=== PATIENT | female | born 1970 | race Caucasian/White ===

== ENCOUNTER 2020-05-15 07:48 | Outpatient (REF) | payer OTHER, SELFPAY ==
[2020-05-20 10:26] LABS: HPV mRNA E6/E7 Not Detected (Not Detected)
== END 2020-05-15 07:49 | disposition home or self-care (01) ==
LOC: HO.LAB 07:48
PROVIDERS: PCP Internal Medicine; Referring Provider Internal Medicine; Visit Provider Advanced Practice Midwife
DX: Z01.419 Encounter for gynecological examination (general) (routine) without abnormal findings (principal)
CPT/HCPCS: 87624; 87625; 88142; 99386

== ENCOUNTER 2020-05-31 16:19 | Outpatient (REF) | payer OTHER, SELFPAY ==
--- NOTE | 2020-05-31 16:21 | XR_ITS ---
EXAMINATION: XR KNEE, RIGHT CLINICAL INFORMATION: Right knee pain. COMPARISON: Right knee 04/05/2019 TECHNIQUE: Four views of the right knee. FINDINGS: There is loss of joint space in medial and peripheral compartments with periarticular spurring and anterior superior patellar enthesophyte. This likely a small loose body in the suprapatellar bursa. No abnormal joint effusion seen. No fracture or dislocation. XR/XR knee RT 2V IMPRESSION: Degenerative arthritic changes medial and patellofemoral compartment right knee. Medial compartment abnormality is new since the last exam.
== END 2020-05-31 16:20 | disposition home or self-care (01) ==
LOC: HO.XRAY 16:19
PROVIDERS: PCP Internal Medicine; Visit Provider Internal Medicine
DX: M25.561 Pain in right knee (principal)
CPT/HCPCS: 73560

== ENCOUNTER 2020-06-27 10:11 | Outpatient (REF) | payer OTHER, SELFPAY ==
--- NOTE | 2020-06-27 10:13 | XR_ITS ---
EXAMINATION: XR KNEE, RIGHT CLINICAL INFORMATION: Pain in right knee COMPARISON: 05/31/2020 TECHNIQUE: [place] view of the right knee. FINDINGS: On this single sunrise view of the patellofemoral compartmental joint space is maintained. There are marginal osteophytes present. No acute fractures seen. XR/XR knee RT 2V IMPRESSION: Appropriate alignment at the patellofemoral compartment. Marginal osteophyte formation noted.
== END 2020-06-27 10:12 | disposition home or self-care (01) ==
LOC: HO.HOSX 10:11
PROVIDERS: PCP Internal Medicine; Referring Provider Internal Medicine; Visit Provider Physician Assistant
DX: M25.561 Pain in right knee (principal)
CPT/HCPCS: 20610; 73560; J1040

== ENCOUNTER → 2020-07-09 08:55 | Outpatient (BNVA) | payer OTHER, SELFPAY | PROVIDERS: PCP Internal Medicine; Referring Provider Internal Medicine; Visit Provider Student in an Organized Health Care Education/Training Program | DX: Z76.89 Persons encountering health services in other specified circumstances (principal) ==

== ENCOUNTER 2020-10-26 09:15 | Outpatient (REF) | payer OTHER, SELFPAY ==
--- NOTE | ~2020-10-26 | XR_ITS ---
EXAMINATION: XR HIP, RIGHT CLINICAL INFORMATION: Right hip pain. COMPARISON: None TECHNIQUE: Two views of the right hip. FINDINGS: There is mild coxa profunda. The joint space is maintained. No acute bony abnormality is demonstrated. XR/XR hip RT min 2V IMPRESSION: Mild coxa profunda. No acute abnormality.
--- NOTE | ~2020-10-26 | MM_ITS ---
EXAMINATION: MM SCREENING DIGITAL BREAST TOMOSYNTHESIS, BILATERAL CLINICAL INFORMATION: Screening. Asymptomatic. The lifetime risk of breast cancer based on the Tyrer-Cuzick Model is 11%. COMPARISON: Mammography: 10/21/2019, 10/08/2018, 09/20/2017 TECHNIQUE: Digital breast tomosynthesis is performed in both the craniocaudal and mediolateral oblique views along with computer-aided detection (CAD). Synthesized 2D images are generated from the tomosynthesis. Additional exaggerated right CC view is provided. FINDINGS: There are scattered areas of fibroglandular density (ACR BI-RADS breast composition Category b). There are no significant masses, abnormal calcifications, or other abnormalities. Parenchymal pattern is similar to prior studies. No developing density or interval mass or architectural abnormality. MM/MM tomosynthesis screening BI IMPRESSION: No mammographic evidence of malignancy. ASSESSMENT: BI-RADS 1: Negative RECOMMENDATION: Routine annual mammography screening. This patient's information was entered into a reminder system with a target due date for their next mammogram.
== END 2020-10-26 09:16 | disposition home or self-care (01) ==
LOC: HO.MAMMO 09:15
PROVIDERS: PCP Internal Medicine; Visit Provider Internal Medicine
DX: Z12.31 Encounter for screening mammogram for malignant neoplasm of breast (principal); M25.551 Pain in right hip
CPT/HCPCS: 73502; 77063; 77067

== ENCOUNTER 2020-11-18 08:09 | Outpatient (REF) | payer OTHER, SELFPAY ==
--- NOTE | ~2020-11-18 | XR_ITS ---
EXAMINATION: XR PELVIS CLINICAL INFORMATION: Pain COMPARISON: Previous x-ray of the right hip October 2020 TECHNIQUE: AP view of the pelvis. FINDINGS: Bone alignment is normal. No fracture or dislocation is seen. The joint spaces are normal. Soft tissues are normal. XR/XR pelvis 1-2V IMPRESSION: Normal pelvis.
== END 2020-11-18 08:10 | disposition home or self-care (01) ==
LOC: HO.HOSX 08:09
PROVIDERS: Visit Provider Orthopaedic Surgery
DX: M70.61 Trochanteric bursitis, right hip (principal); M25.551 Pain in right hip
CPT/HCPCS: 20610; 72170; J1100

== ENCOUNTER 2020-12-05 12:41 | Emergency (ER) | payer OTHER, SELFPAY ==
--- NOTE | 2020-12-05 | ECG_ITS ---
Test Reason : CHEST PAIN Blood Pressure : / mmHG Vent. Rate : 104 BPM Atrial Rate : 104 BPM P-R Int : 130 ms QRS Dur : 088 ms QT Int : 344 ms P-R-T Axes : 016 -14 005 degrees QTc Int : 452 ms Sinus tachycardia Minimal voltage criteria for LVH, may be normal variant Borderline ECG When compared with ECG of 06-OCT-2017 18:16, No significant change was found Referred By: Generic ED Physician Electronically Signed By:YOVANI PETER MD
[2020-12-05 14:01] VITALS: BP 146/87; PULSE 80; RESP 18; TEMP 37.1; O2SAT 100; BMI 33.8
--- NOTE | 2020-12-05 14:54 | ED_ITS ---
HPI - Chest Pain General Chief Complaint: Chest Pain Stated Complaint: CHEST PAIN Time Seen by Provider: 12/05/20 14:54 Source: patient Mode of arrival: ambulatory Limitations: no limitations History of Present Illness HPI narrative: chest pain with pressure with dizziness and diaphoresis. Symptoms have started on Wednesday, 2 days ago and have been constant since then. Patient has had anxiety and felt palpitation. Patient also has GERD. Patient is currently under stress, daughter recently had a stroke, and her dog 7 days ago. Patient denies suicidal ideation, safe at home no abuse. MD complaint: chest heaviness Onset (ago): day(s) Timing of current episode: constant Onset: during rest Pain location: substernal Severity: moderate Quality: tightness Exacerbating factors: nothing Associated symptoms: other (stress) Risk Factors Coronary artery disease risk factors: smoking history and hypertension Related Data Home Medications Medication Instructions Recorded Confirmed ascorbic acid 125 mg-collagen, cap PO 05/15/20 10/07/20 hydrolyzed 740 mg capsule docusate sodium 100 mg capsule 100 mg PO 05/15/20 10/07/20 Previous Rx's Medication Instructions Recorded omeprazole 20 mg capsule,delayed 40 mg PO DAILY #180 cap 06/17/20 release leg brace #1 ea 06/28/20 diclofenac sodium 1 % topical gel 1 g TOPICAL BID PRN #100 g 07/23/20 lorazepam 1 mg tablet 1 mg PO DAILY PRN 90 Days #90 tab 08/12/20 cholecalciferol (vitamin D3) 25 50 mcg PO DAILY #180 tab 09/05/20 mcg (1,000 unit) tablet hydrochlorothiazide 25 mg tablet 25 mg PO QAM #90 tab 09/12/20 tramadol 50 mg tablet 50 mg PO Q8H PRN 30 Days #90 tab 09/12/20 buspirone 5 mg tablet 5 mg PO BID #60 tab 10/07/20 meloxicam 15 mg tablet 15 mg PO DAILY #30 tab 10/07/20 ibuprofen 800 mg tablet 800 mg PO TID PRN 30 Days #90 tab 11/18/20 sertraline 100 mg tablet 100 mg PO DAILY #90 tab 11/18/20 tizanidine 4 mg tablet 4 mg PO TID PRN #90 tab 12/02/20 Allergies Allergy/AdvReac Type Severity Reaction Status Date / Time No Known Allergies Allergy Verified 11/18/20 09:18 [No Known Allergies*] Review of Systems Constitutional: Constitutional: Reports no additional constitutional comp laints Eyes: Eyes: Reports no additional eye complaints ENT: Denies dizziness Cardiovascular: Cardiovascular: Reports no additional cardiovascular complaints Respiratory: Respiratory: Reports as per HPI Gastrointestinal: Gastrointestinal: Reports no additional gastrointestinal complaints Genitourinary: Genitourinary: Reports no additional female genitourinary complaints Musculoskeletal: Musculoskeletal: Reports no additional musculoskeletal complaints Integumentary/Breasts: Skin/Breast: Denies rash Neurologic: Reports system reviewed and no additional complaints, except as documented, Denies dizziness and Denies Sensory deficit (Neuro) Psychiatric: Psychiatric: Denies anxiety PMFSH Past Medical History Medical History Anemia Anxiety and depression Avascular necrosis of right humeral head Bilateral carpal tunnel syndrome GERD (gastroesophageal reflux disease) Hx of diverticulitis of colon Hx of tendinitis Hypercholesterolemia Hypertension Lumbar degenerative disc disease Primary osteoarthritis of hands, bilateral Rotator cuff disorder Vitamin D deficiency Surgical History History of foot surgery Hx of abdominoplasty Hx of cholecystectomy Hx of colonoscopy Hx of rotator cuff surgery Hx of tubal ligation Varicose veins of right lower extremity Family History Family History Father Hx of diabetes mellitus History of high cholesterol Mother Family hx of hypertension History of asthma Hx of heart disorder Brother Automobile accident Brother Suicide Family/Other No problems noted. Maternal Grandmother History of asthma Paternal Grandfather No problems noted. 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 Physical Exam Vital Signs: Vital Signs: Last Vital Signs Temp 98.0 F 12/05/20 16:39 Pulse 72 12/05/20 16:39 Resp 14 12/05/20 16:39 BP 140/81 H 12/05/20 16:39 Pulse Ox 100 12/05/20 16:39 Body Mass Index 33.8 Const: General: healthy appearing Nutritional Appearance: obese Orie ntation/consciousness: oriented to person and patient oriented x3 Limitat ions: no limitations HENMT: Head: Yes normal to inspection Ears: external ears normal General nose exam: Normal external nose present Mouth: Normal oral and palatal mucosa present and oropharynx normal Throat: Yes posterior oropharynx normal Eyes: General: appearance normal, both eyes and all related structures Neck: Other: supple Neck: Yes normal visual inspection Chest: Chest palpation & inspection: normal inspection of the chest Resp: Auscultation: clear to auscultation bilaterally Cardio: Jugular venous distension: no JVD Rate: regular rate Rhythm: regular rhythm Heart sounds: S1 normal heart sound present and S2 normal heart sound present GI: Inspection: Yes normal to inspection Palpation (GI): Soft to palpation, nontender and No hepatosplenomegaly present Auscultation: normal bowel sounds : General: Yes no CVA tenderness Back/Spine/Pelvis: Back: no CVA tenderness Skin: General skin exam: no rashes or lesions noted Neuro: General: oriented to person and patient oriented x3 Cranial nerves: Yes CN's II-XII intact bilaterally Motor exam (neuro): 5/5 motor strength present throughout Sensory Exam: No Sensory deficit (Neuro) Extrem: General: Yes normal to inspection Psych: Appearance: grossly normal Course Course Course Narrative: Impression is anxiety will dc home if chemistries are normal, signed out to Dr. Barragan [facility] - Chest Pain Lab Data Result diagrams: 12/05/20 16:31 12/05/20 16:31 Labs: Lab Results 12/05/20 Range/Units 16:31 WBC 11.4 H (4.8-10.8) X10*3/uL RBC 4.33 (4.20-5.50) X10*6/uL Hgb 11.6 L (12.0-16.0) g/dl Hct 36.6 L (37-47) % MCV 84.5 (80-98) fL MCH 26.8 L (27.0-33.0) pg MCHC 31.7 (31.0-35.0) g/dl RDW 15.2 (11.0-16.0) % Plt Count 340 (160-400) X10*3/uL MPV 9.3 L (9.4-12.3) fL Immature Gran % (Auto) 0.3 (0.0-0.4) % Neut % (Auto) 64.5 (45-73) % Lymph % (Auto) 26.8 (20-40) % [place] % (Auto) 6.9 (2-11) % Eos % (Auto) 1.2 (0-4) % Baso % (Auto) 0.3 (0-2) % Lymph # (Auto) 3.0 (1.2-4.9) X10*3/uL [place] # (Auto) 0.8 (0.1-1.2) X10*3/uL Eos # (Auto) 0.1 (0.0-0.4) X10*3/uL Baso # (Auto) 0.0 (0.0-0.2) X10*3/uL Abs Immat Gran (auto) 0.03 (0.00-0.03) X10*3/uL Absolute Neuts (auto) 7.3 (2.0-8.3) X10*3/uL Absolute Nucleated RBC 0.000 (0.0-0.012) X10*3/uL Nucleated RBC % (auto) 0.0 (0.0-0.2) /100WBC ECG Data ECG #1: Attestation: I personally reviewed and interpreted this ECG as follows: Interpretation: normal sinus rate 104, no st or twave changes Discharge Plan Discharge Clinical Impression: Anxiety and depression, Chest pain Patient Disposition: Home, Self-Care Prescriptions: No Action omeprazole 20 mg capsule,delayed release(DR/EC) 40 mg PO DAILY Qty: 180 RF: 4 diclofenac sodium 1 % gel 1 g topical BID PRN (Reason: pain) Qty: 100 RF: 3 lorazepam 1 mg tablet 1 mg PO DAILY PRN (Reason: agitation) 90 Days Qty: 90 RF: 0 cholecalciferol (vitamin D3) 25 mcg (1,000 unit) tablet 50 mcg PO DAILY Qty: 180 RF: 3 hydrochlorothiazide 25 mg tablet 25 mg PO QAM Qty: 90 RF: 2 tramadol 50 mg tablet 50 mg PO Q8H PRN (Reason: pain) 30 Days Qty: 90 RF: 1 sertraline 100 mg tablet 100 mg PO DAILY Qty: 90 RF: 2 tizanidine 4 mg tablet 4 mg PO TID PRN (Reason: for muscle spasm) Qty: 90 RF: 1 meloxicam 15 mg tablet 15 mg PO DAILY Qty: 30 RF: 1 Hold Instructions: Doctor's Order buspirone 5 mg tablet 5 mg PO BID Qty: 60 RF: 2 docusate sodium 100 mg capsule 100 mg PO RF: 0 Collagen Plus Vitamin C 125-740 mg capsule PO RF: 0 (DME) Knee Support Brace Misc See Rx Instructions .MEDSUPPLY Qty: 1 RF: 0 ibuprofen 800 mg tablet 800 mg PO TID PRN (Reason: pain) 30 Days Qty: 90 RF: 2 Referrals: Po,Mian Howard MD [Primary Care Provider] - 1 week
[2020-12-05] MEDS: LORazepam 1 MG TABLET PO (15:51)
[2020-12-05 16:37] LABS: MANUAL DIFF FLAG NO
[2020-12-05 16:39] VITALS: BP 140/81; PULSE 72; RESP 14; TEMP 36.7; O2SAT 100
[2020-12-05 16:39] LABS: Basophils Percent Auto 0.3 % (0-2); Eosinophils Absolute Auto 0.1 X10*3/uL (0.0-0.4); Eosinophils Percent Auto 1.2 % (0-4); Hematocrit 36.6 % (37-47); Hemoglobin 11.6 g/dl (12.0-16.0); Imm Gran Abs Auto 0.03 X10*3/uL (0.00-0.03); Imm Gran Pct Auto 0.3 % (0.0-0.4); Lymphocytes Percent Auto 26.8 % (20-40); Mean Corpuscular HGB Conc 31.7 g/dl (31.0-35.0); Mean Corpuscular Hemoglobin 26.8 pg (27.0-33.0); Mean Corpuscular Volume 84.5 fL (80-98); Mean Platelet Volume 9.3 fL (9.4-12.3); Monocytes Absolute Auto 0.8 X10*3/uL (0.1-1.2); Monocytes Percent Auto 6.9 % (2-11); Neutrophils Absolute Auto 7.3 X10*3/uL (2.0-8.3); Neutrophils Percent Auto 64.5 % (45-73); Platelet Count 340 X10*3/uL (160-400); Red Blood Count 4.33 X10*6/uL (4.20-5.50); Red Cell Distribution Width 15.2 % (11.0-16.0); White Blood Count 11.4 X10*3/uL (4.8-10.8)
[2020-12-05 17:05] LABS: Anion Gap 13 (12-20); Blood Urea Nitrogen 10 mg/dL (9-16); Calcium 9.6 mg/dL (8.4-10.2); Carbon Dioxide 27 mmol/L (22-29); Chloride 102 mmol/L (96-108); Creatinine Clr Calc Pharmacy 97.2; Estimated Glomerular Filt Rate > 60; Glucose Random 84 mg/dL (60-115); Potassium 4.1 mmol/L (3.3-5.1); Sodium 138 mmol/L (135-145)
[2020-12-05 17:12] LABS: Troponin-I High Sensitivity < 3.5 ng/L (<3.5-17.0)
[2020-12-05 17:52] VITALS: BP 133/76; PULSE 82; RESP 18; O2SAT 99
== END 2020-12-05 18:03 | disposition home or self-care (01) ==
PROVIDERS: Emergency Provider Emergency Medicine; PCP Internal Medicine
DX: R07.9 Chest pain, unspecified (principal); Z79.899 Other long term (current) drug therapy; Z87.891 Personal history of nicotine dependence
CPT/HCPCS: 36415; 80048; 84484; 85025; 93005; 99283

== ENCOUNTER 2021-01-31 12:04 | Outpatient (REF) | payer OTHER, SELFPAY ==
--- NOTE | ~2021-01-31 | XR_ITS ---
EXAMINATION: XR KNEE, LEFT CLINICAL INFORMATION: Pain in left knee COMPARISON: Radiograph of the knee 10/29/2008 TECHNIQUE: AP and lateral radiographs of the knee of the left knee. FINDINGS: The osseous structures of the knee are intact. There is enthesopathy at the insertion of the quadriceps tendon. Knee is in alignment. Within the anterior aspect of the intercondylar space there is a 0.9 x 0.6 x 0.9 cm smoothly calcified structure may represent an intra-articular ossicle. On lateral radiograph there is question small suprapatellar effusion. XR/XR knee LT 2V IMPRESSION: Smoothly calcified ossicle in the intercondylar space. Question trace joint effusion. No acute fracture.
== END 2021-01-31 12:05 | disposition home or self-care (01) ==
LOC: HO.XRAY 12:04
PROVIDERS: PCP Internal Medicine; Visit Provider Internal Medicine
DX: M25.562 Pain in left knee (principal)
CPT/HCPCS: 73560

== ENCOUNTER → 2021-03-14 13:35 | Outpatient (BNVA) | payer OTHER, SELFPAY | PROVIDERS: PCP Internal Medicine; Visit Provider Physician Assistant | DX: M17.11 Unilateral primary osteoarthritis, right knee (principal); M70.61 Trochanteric bursitis, right hip | CPT/HCPCS: 20610; J1040 ==

== ENCOUNTER → 2021-03-26 13:28 | Outpatient (BNVA) | payer OTHER, SELFPAY | PROVIDERS: PCP Internal Medicine; Referring Provider Internal Medicine; Visit Provider Surgery ==

== ENCOUNTER 2021-04-17 | Outpatient (REF) | payer OTHER, SELFPAY ==
[2021-04-17 13:54] VITALS: BP 133/86; PULSE 92; RESP 16; TEMP 36.6; O2SAT 99; BMI 35.2
--- NOTE | 2021-04-17 14:17 | P.OP_ITS ---
Operative Note Operative Note Date of Service: 04/17/21 Narrative: Preop diagnosis: Epidermal cyst, right shoulder Postop diagnosis: the same Procedure: Excision of epidermal cyst, right shoulder under local anesthesia Surgeon: Brady Baeza MD Legal Writing Professor: LIBERTAD Marie-student The patient is a 50 year female with an epidermal cyst on the right shoulder. She wanted this removed. She understood the technique of excision under local anesthesia and was aware of the risks, benefits, and alternatives She was brought to the minor procedure room and placed in a reclining position. The area of the cyst was prepped and draped. Lidocaine 1% was used for local anesthesia. A surgical time-out had been done I then made an incision on the skin overlying the cyst using blade 15 and this was carried down through the full-thickness of the skin and subcutaneous fat until the cyst capsule was visualized. I sharply dissected the cyst capsule off of the rest of the subcutaneous layer using scissors and proceeded this circumferentially to remove the entire cyst. This was sent as a specimen I irrigated the area of excision. I closed the incision with full-thickness nylon 3-0 interrupted sutures. Dressings were applied and the procedure was completed The patient tolerated procedure well. There were no complications noted. Blood loss was less than 1 cc. The patient was then given wound care instructions.
== END 2021-04-17 00:01 | disposition home or self-care (01) ==
LOC: HO.MS
PROVIDERS: PCP Internal Medicine; Visit Provider Surgery
PROC: (CPT 11402; principal; 2021-04-17 14:00)
DX: L72.0 Epidermal cyst (principal)
CPT/HCPCS: 11402; 88304

== ENCOUNTER 2021-04-26 09:21 | Outpatient (REF) | payer OTHER, SELFPAY ==
[2021-04-26 09:58] LABS: MANUAL DIFF FLAG NO
[2021-04-26 10:07] LABS: Basophils Percent Auto 0.4 % (0-2); Eosinophils Absolute Auto 0.2 X10*3/uL (0.0-0.4); Eosinophils Percent Auto 2.2 % (0-4); Hematocrit 36.4 % (37-47); Hemoglobin 11.5 g/dl (12.0-16.0); Imm Gran Abs Auto 0.03 X10*3/uL (0.00-0.03); Imm Gran Pct Auto 0.4 % (0.0-0.4); Immature Retic Fraction 16.2 % (3.0-15.9); Lymphocytes Absolute Auto 2.2 X10*3/uL (1.2-4.9); Lymphocytes Percent Auto 27.1 % (20-40); Mean Corpuscular HGB Conc 31.6 g/dl (31.0-35.0); Mean Corpuscular Volume 85.4 fL (80-98); Mean Platelet Volume 9.9 fL (9.4-12.3); Monocytes Absolute Auto 0.6 X10*3/uL (0.1-1.2); Monocytes Percent Auto 7.5 % (2-11); Neutrophils Absolute Auto 5.2 X10*3/uL (2.0-8.3); Neutrophils Percent Auto 62.4 % (45-73); Platelet Count 355 X10*3/uL (160-400); Red Blood Count 4.26 X10*6/uL (4.20-5.50); Red Cell Distribution Width 14.9 % (11.0-16.0); Retic HGB Equivalent 32.8 pg (30.0-35.0); Reticulocyte Percent 2.1 % (0.5-1.8); Reticulocytes Absolute 0.089 X10*6/uL (0.026-0.095); White Blood Count 8.3 X10*3/uL (4.8-10.8)
[2021-04-26 10:35] LABS: Alanine Aminotransferase 29 U/L (0-31); Albumin Level 3.7 g/dL (3.5-5.0); Alkaline Phosphatase 90 U/L (39-117); Anion Gap 11 (12-20); Aspartate Amino Transferase 15 U/L (5-31); Bilirubin Total 0.2 mg/dL (0.0-1.0); Blood Urea Nitrogen 13 mg/dL (9-16); Calcium 9.2 mg/dL (8.4-10.2); Carbon Dioxide 30 mmol/L (22-29); Chloride 104 mmol/L (96-108); Cholesterol 223 mg/dL; Estimated Glomerular Filt Rate > 60; Glucose Random 100 mg/dL (60-115); HDL Cholesterol 34 mg/dL; Iron 33 mcg/dL (30-160); LDL Cholesterol Calculated 126 mg/dl; Percent Iron Saturation 8 % (15-50); Potassium 3.8 mmol/L (3.3-5.1); Sodium 141 mmol/L (135-145); Total Iron Binding Capacity 412 mcg/dL (228-428); Total Protein 6.8 g/dL (6.5-8.0); Triglycerides 317 mg/dL; Unsaturated Iron Binding 379 ug/dL
[2021-04-26 10:41] LABS: Free T4 (Free Thyroxine) 0.81 ng/dL (0.71-1.85)
[2021-04-26 11:12] LABS: Ferritin 34 ng/mL (10-250)
[2021-04-28 04:17] LABS: Folate 13.9 ng/mL (> or = 4.0); Vitamin B12 726 pg/mL (200-900)
== END 2021-04-26 09:22 | disposition home or self-care (01) ==
LOC: HO.LAB 09:21
PROVIDERS: PCP Internal Medicine; Visit Provider Internal Medicine
DX: K21.9 Gastro-esophageal reflux disease without esophagitis (principal); E78.00 Pure hypercholesterolemia, unspecified; I10 Essential (primary) hypertension
CPT/HCPCS: 36415; 80053; 80061; 82607; 82728; 82746; 83540; 84439; 84443; 85025; 85045

== ENCOUNTER → 2021-04-30 14:24 | Outpatient (BNVA) | payer OTHER, SELFPAY | PROVIDERS: PCP Internal Medicine; Referring Provider Internal Medicine; Visit Provider Surgery ==

== ENCOUNTER 2021-05-01 17:00 | Outpatient (REF) | payer OTHER, SELFPAY ==
--- NOTE | ~2021-05-01 | MR_ITS ---
EXAMINATION: MR KNEE WITHOUT CONTRAST, RIGHT CLINICAL INFORMATION: Primary osteoarthritis COMPARISON: X-ray the right knee May 2020 TECHNIQUE: MRI of the knee without contrast was performed using routine sequences on a high-field scanner. FINDINGS: MENISCI: Medial Meniscus: There is irregularity of the free edge and tibial articular surface of the posterior horn. There is a partially detached and displaced meniscal fragment. This is located just anterior to the posterior root of the meniscus extending into the intercondylar notch. This fragment measures 9 x 2 x 10 mm and presumably arises from the aforementioned meniscal abnormality. The body and anterior horn are intact. Lateral Meniscus: Intact LIGAMENTS: Cruciate: Intact Collateral: Intact EXTENSOR MECHANISM: Intact ARTICULAR CARTILAGE/BONE: Patellofemoral Compartment: In the patella there is nonuniform at least partial-thickness cartilage loss particularly along the proximal aspect of the patella. Minimal cartilage heterogeneity of the medial trochlea. Findings indicative of mild arthrosis. Medial Compartment: There are marginal osteophytes. There are small subchondral cystic changes with surrounding edema along the posterior medial margin of the tibia. Minimal cartilage heterogeneity. Overall mild arthrosis. Lateral Compartment: There are small marginal osteophytes. Cartilage intact. JOINT FLUID AND BURSAE: There is a mild joint effusion and synovitis. Localized synovitis versus small chondral loose body in the posterior recess of the medial compartment measuring 4 mm. MR/MR knee RT wo con IMPRESSION: Tear of the posterior horn of medial meniscus with a displaced meniscal fragment extending into the intercondylar notch. Mild arthrosis of the patellofemoral compartment and medial compartment. Minimal arthrosis of the lateral compartment. Mild joint effusion and synovitis. Localized synovitis versus small chondral loose body in the posterior recess of medial compartment. Favor synovitis.
== END 2021-05-01 17:01 | disposition home or self-care (01) ==
LOC: HO.MRI 17:00
PROVIDERS: PCP Internal Medicine; Visit Provider Physician Assistant
DX: M17.11 Unilateral primary osteoarthritis, right knee (principal)
CPT/HCPCS: 73721

== ENCOUNTER → 2021-05-12 10:05 | Outpatient (REF) | payer OTHER, SELFPAY ==
--- NOTE | 2021-05-12 10:17 | ECG_ITS ---
Test Reason : htn Blood Pressure : / mmHG Vent. Rate : 073 BPM Atrial Rate : 073 BPM P-R Int : 126 ms QRS Dur : 092 ms QT Int : 396 ms P-R-T Axes : 019 -01 005 degrees QTc Int : 436 ms Normal sinus rhythm Normal ECG When compared with ECG of 05-DEC-2020 12:51, Heart rate has decreased Referred By: Mian Haynes Electronically Signed By:JOHN CABALLERO
== END ==
LOC: HO.CARD 10:05
PROVIDERS: PCP Internal Medicine; Visit Provider Internal Medicine
DX: I10 Essential (primary) hypertension (principal)
CPT/HCPCS: 93005

== ENCOUNTER 2021-05-27 07:48 | Day surgery (SDC) | payer OTHER, SELFPAY ==
[2021-05-27] VITALS (12 sets, daily range): BP systolic 111–144; BP diastolic 57–80; PULSE 77–100; RESP 14–18; TEMP 36.1–36.7; O2SAT 93–100; BMI 34.5
--- NOTE | 2021-05-27 09:55 | MHC.SHP ---
Pre-Procedural Eval Section A Date of Service: 05/27/21 The patient is an INPATIENT: No Changes since office visit: Yes Patient answered all questions; No Cold of Flu in the past 2 weeks, No New Medical Problems and No Changes in Medication The History & Physical has been completed within 30 days and I have reviewed it.: Yes Section B Chief Complaint: tear of medial meniscus Allergies: Allergies Allergy/AdvReac Type Severity Reaction Status Date / Time No Known Allergies Allergy Verified 05/27/21 08:35 [No Known Allergies*] Plan I have reviewed the history and physical and performed a pertinent physical examination on my patient. No changes have occurred unless specified.
[2021-05-27] MEDS: Lactated Ringers 1,000 ML 50 ML IVCONT (10:39)
--- NOTE | 2021-05-27 10:54 | HO.ANESPROP2 ---
HPI - Anesthesia Eval Consult details Narrative: 50 F for knee arthroscopy [facility] Active Problems Active Problems: All Active Problems (Updated 05/12/21 @ 13:10 by Simón Nuñez PA-C) Tear of medial meniscus of right knee (Acute) Facial dermatitis (Acute) Breast pain, right (Acute) Generalized anxiety disorder (Acute) Annual physical exam (Acute) Epidermal inclusion cyst (Acute) Trochanteric bursitis, right hip (Acute) Knee pain, left (Acute) Sebaceous cyst (Acute) Obesity (BMI 30-39.9) (Acute) Hypercholesterolemia (Acute) GERD (gastroesophageal reflux disease) (Acute) Hypertension (Acute) Bilateral carpal tunnel syndrome (Acute) Primary osteoarthritis of hands, bilateral (Acute) Osteoarthritis of right knee (Acute) Avascular necrosis of right humeral head (Acute) Past Medical History Medical History Anemia Avascular necrosis of right humeral head Bilateral carpal tunnel syndrome Epidermal inclusion cyst GERD (gastroesophageal reflux disease) Hip pain, right Hx of diverticulitis of colon Hx of tendinitis Hypercholesterolemia Hypertension Knee pain, left Lumbar degenerative disc disease Obesity (BMI 30-39.9) Primary osteoarthritis of hands, bilateral Rotator cuff disorder Vitamin D deficiency Family History Family History Father Hx of diabetes mellitus History of high cholesterol Mother Family hx of hypertension History of asthma Hx of heart disorder Brother Automobile accident Brother Suicide Family/Other No problems noted. Maternal Grandmother History of asthma Paternal Grandfather No problems noted. Daughter In good health Daughter In good health Daughter In good health Family history of problems with anesthesia: No Surgical History Surgical History History of foot surgery History of removal of cyst Hx of abdominoplasty Hx of cholecystectomy Hx of colonoscopy Hx of rotator cuff surgery Hx of tubal ligation Varicose veins of right lower extremity History of Problems with Anesthesia: No Social History Social History Housing: House Alcohol intake: current Alcohol intake frequency: holidays/special occasions only Patient Tobacco Use Status: Former Tobacco user Tobacco use type: Cigarette Years Smoked: stopped 1-2 cigarettes at a time > 2009 Second Hand Smoke Exposure: No Use of substances other than those prescribed or required for medical reasons: Yes Substance Use Frequency: Occasionally Are you DNR?: No Advance Directives: No Advance Directives Information Provided: Yes service: No Current occupational status: employed 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 Allergies Allergy/AdvReac Type Severity Reaction Status Date / Time No Known Allergies Allergy Verified 05/27/21 08:35 [No Known Allergies*] Active Medications: Current Medications Lactated Ringer's (Lr) 1,000 mls @ 50 mls/hr IVCONT .Q20H TAZ Last Admin: 05/27/21 10:39 Dose: 50 mls/hr Documented by: Home Medications Medication Instructions Recorded Confirmed Last Taken Type ascorbic acid 125 mg-collagen, cap PO 05/15/20 04/11/21 Unknown History hydrolyzed 740 mg capsule (Collagen Plus Vitamin C) Exam Exam Date and Time: May 27, 2021 1054 Height,Weight and Vital Signs: Height 5 ft 3.5 in Weight 198 lb Last Vital Signs Temp 98.0 F 05/27/21 08:36 Pulse 77 05/27/21 08:36 Resp 16 05/27/21 08:36 BP 144/80 H 05/27/21 08:36 Pulse Ox 99 05/27/21 08:36 Airway Mallampati Class: III TM Dist: >3cm Neck ROM: Full Loose/Missing/Broken Teeth: No Assessment and Plan Assessment Anesthesia Assessment: Anesthesia Plan Discussed and Chart Reviewed Final Anesthetic Review Family History of Problems with Anesthesia: No History of Problems with Anesthesia: No NPO: Yes ASA Class: III Final Preanesthetic Review: No Changes in Pt Med Stat, Meds/Allgs Chart Reviewed, Consent Obtained/Reviewed and Anes Risks/Benef Reviewed Patient Risk: Intermediate Procedure Risk: Low Anesthetic Plan Anesthetic Plan: GA Disposition: Standard PACU
--- NOTE | 2021-05-27 11:33 | PM.OP ---
Brief Operative Note Date of Service: 05/27/21 Pre-op diagnosis: right knee medial meniscus tear Post-op diagnosis: same Procedure: right knee with partial medial meniscectomy Surgeon: Edmund Mahmood MD Anesthesia: GETA and local Was an Synthetic Resin Operator used for this Procedure?: No Estimated blood loss (mL): 5 Tourniquet time (min): 20 IV fluids (mL): 800 Pathology: none sent Condition: stable Disposition: PACU
--- NOTE | 2021-05-27 11:35 | P.OP_ITS ---
Operative Note Operative Note Date of Service: 05/27/21 Narrative: Pre-op diagnosis: right knee medial meniscus tear Post-op diagnosis: same Procedure: right knee with partial medial meniscectomy Surgeon: Edmund Mahmood MD Anesthesia: GETA and local Was an Finding Fastener used for this Procedure?: No Estimated blood loss (mL): 5 Tourniquet time (min): 20 IV fluids (mL): 800 Pathology: none sent Condition: stable Disposition: PACU Procedure in detail: Patient was brought to the operating room placed supine on the arthroscopic table and prepped and draped in standard sterile fashion. A time-out was called to identify proper site proper procedure proper surgeon and IV antibiotics per weight were administered. I began by exsanguinating the limb and insufflating tourniquet to 300 mm Hg. Then made a standard anterolateral stab incision. knee was insufflated with water and 30 degree arthroscope was placed. There was grade 3-4 changes of the proximal pole of the patella but overall suprapatellar pouch was clean and the gutters were clean. I descended into the medial compartment where I made my medial portal under direct visualization. There was obvious of complex tear of the body and posterior horn of the medial meniscus. Root was intact and there was grade 1 changes with some scattered grade 2 changes throughout the medial compartment. I used a combination of biter shaver and cautery to remove unstable portions of the meniscus. Approximately 40% meniscal volume was removed. Once I was satisfied with this the ACL was examined and found to be intact and the lateral compartment also was without the need for intervention. I then removed all instrumentation and closed the portals with skin glue. 25 mL of 2% Marcaine with epinephrine was injected into the joint and the surrounding soft tissues. Patient was then placed in sterile dressing extubated brought recovery room stable condition. There were no known complications. Anterior compartment: Clean Patellofemoral cartilage: G 4 proximal 50% of central patellar facet Medial compartment: Complex meniscus tear of body and posterior horn Notch: ACL intact Lateral compartment: Cartilage and meniscus intact
[2021-05-27] MEDS: Ketorolac Tromethamine 15 MG/ML VIAL IVPUSH (12:00)
[2021-05-27] MEDS: oxyCODONE HCl Immed Release 5 MG TABLET PO (12:00)
[2021-05-27] MEDS: HYDROmorphone HCl 0.5 MG/0.5 ML SYRINGE 0.25 MG IVPUSH ×2 (12:00→12:26)
[2021-05-27] MEDS: Acetaminophen 325 MG TABLET 975 MG PO (13:01)
== END 2021-05-27 13:35 | disposition home or self-care (01) ==
PROVIDERS: PCP Internal Medicine; Visit Provider Orthopaedic Surgery
PROC: (CPT 29870; principal; 2021-05-27 09:40)
DX: S83.231A Complex tear of medial meniscus, current injury, right knee, initial encounter (principal); X58.XXXA Exposure to other specified factors, initial encounter; Y93.9 Activity, unspecified; Y92.9 Unspecified place or not applicable; Y99.8 Other external cause status; M17.11 Unilateral primary osteoarthritis, right knee; M25.461 Effusion, right knee; M65.861 Other synovitis and tenosynovitis, right lower leg; I10 Essential (primary) hypertension; Z79.1 Long term (current) use of non-steroidal anti-inflammatories (NSAID); Z79.899 Other long term (current) drug therapy; Z87.891 Personal history of nicotine dependence
CPT/HCPCS: 29881; J0171; J0690; J1170; J1885; J2250; J3010

== ENCOUNTER → 2021-06-09 10:30 | Outpatient (BNVA) | payer OTHER, SELFPAY | PROVIDERS: Visit Provider Physician Assistant ==

== ENCOUNTER 2021-07-09 08:00 | Outpatient (RCR) | payer OTHER, SELFPAY ==
--- NOTE | 2021-06-18 12:25 | MHC.PT.EP ---
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 SHE ARRIVES FOR PT S/P MEDIAL MENISCUS REPAIR. IMPAIRMENTS INCLUDE DECREASED ROM, DECREASED KNEE AND HIP STRENGTH, ALTERED GAIT PATTERN, DECREASED BALANCE, INCREASED EDEMA AND PAIN. FUNCTIONAL LIMITATIONS INCLUDE DECREASED ABILITY TO PERFORM SQUATTING, WALKING, STATIC STANDING AND STAIR CLIMBING. SHE REPORTS DECREASED ABILITY TO PERFORM HOMEMAKING AND SELF CARE TASKS, DECREASED ABILITY TO PERFORM COMMUNITY AND FITNESS ACTIVITIES WELL WORK TASKS. SHE REPORTS DISRUPTED SLEEP. A PT IS A GOOD CANDIDATE FOR SKILLED PT DUE TO AGE, POTENTIAL REMEDIATION OF IMPAIRMENTS, TYPICAL DISEASE/CONDITION PROGRESSION AND PROGNOSIS, COMORBIDITIES, AND MOTIVATION. PT WOULD BENEFIT FROM TAILORED PROGRAM OF THERAPEUTIC ACTIVITIES, FUNCTIONAL TRAINING, GAIT TRAINING, POSTURAL EDUCATION, NEUROMUSCULAR RE-EDUCATION, AND MODALITIES NEEDED. Frequency and Duration: The patient will be seen 2 X WEEK FOR 4 WEEKS Short Term Goals: INITIATE HEP ANDPROMOTE SELF MANAGEMENT OF SYMPTOMS IN 2 VISITS Skilled Nursing Goals: IN 4 WEEKS: TO DEMONSTRATE FULL KNEE ROM, EQUAL TRELL TO DEMONSTRATE FULL LE STRENGTH, EQUAL TRELL TO ASCEND AND DESCEND STAIRS WITHOUT PAIN GREATER THAN 2/10 TO AMBULATE AD MINESH ON LEVEL AND UNEVEN SURFACES FOR FITNESS WITHOUT PAIN GREATER THAN 2/10 TO PERFORM FULL FUNCTIONAL SQUAT WITHOUT SUBSTITUTION Treatment Plan: Modalities to reduce pain, spasms and effusion. Manual therapy to restore motion and function. Therapeutic exercise to improve strength and flexibility. Neuromuscular re-education for posture and balance. Therapeutic activities to return to functional activities of daily living. Electronically signed by: JULIET LEMON PT, DPT Please sign and return to therapist. Thank you for your referral.
== END 2021-08-13 14:30 | disposition home or self-care (01) ==
LOC: HO.PT 08:00
PROVIDERS: Visit Provider Physician Assistant
DX: M17.11 Unilateral primary osteoarthritis, right knee (principal); M70.60 Trochanteric bursitis, unspecified hip
CPT/HCPCS: 97110; 97112; 97161; 97530

== ENCOUNTER → 2021-07-09 11:17 | Outpatient (BNVA) | payer OTHER, SELFPAY | PROVIDERS: PCP Internal Medicine; Visit Provider Physician Assistant ==

== ENCOUNTER 2021-08-06 12:30 | Outpatient (REF) | payer OTHER, SELFPAY ==
[2021-08-06 15:45] LABS: Influenza A PCR NEGATIVE (Negative); Influenza B PCR NEGATIVE (Negative); Resp Syncy Virus RNA Qual PCR NEGATIVE (Negative); SARS COV2 PCR INHOUSE POSITIVE (Negative)
== END 2021-08-06 12:31 | disposition home or self-care (01) ==
LOC: HO.LAB 12:30
PROVIDERS: Visit Provider Family Medicine
DX: Z20.822 Contact with and (suspected) exposure to COVID-19 (principal); B34.9 Viral infection, unspecified
CPT/HCPCS: 0241U

== ENCOUNTER → 2021-08-21 11:23 | Outpatient (BNVA) | payer OTHER, SELFPAY | PROVIDERS: PCP Internal Medicine; Visit Provider Physician Assistant ==

== ENCOUNTER → 2021-09-12 08:10 | Outpatient (BNVA) | payer OTHER, SELFPAY | PROVIDERS: PCP Internal Medicine; Visit Provider Nurse Practitioner Family ==

== ENCOUNTER 2021-09-25 09:51 | Outpatient (REF) | payer OTHER, SELFPAY ==
--- NOTE | 2021-09-25 09:53 | EMG_ITS ---
Right tibial and peroneal motor studies were performed. Right superficial peroneal and sural sensory studies were performed. Tibial H-reflex was obtained and needle examination was performed. IMPRESSION: Right mid to lower lumbar radiculopathy. MD PEARL Bowling/SHAYLA / [id number]
== END 2021-09-25 09:52 | disposition home or self-care (01) ==
LOC: HO.NEURO 09:51
PROVIDERS: PCP Internal Medicine; Visit Provider Nurse Practitioner Family
DX: M17.11 Unilateral primary osteoarthritis, right knee (principal); R29.898 Other symptoms and signs involving the musculoskeletal system
CPT/HCPCS: 95886; 95909

== ENCOUNTER → 2021-09-30 08:01 | Outpatient (BNVA) | payer OTHER, SELFPAY | PROVIDERS: PCP Internal Medicine; Visit Provider Nurse Practitioner Family ==

== ENCOUNTER 2021-10-03 11:19 | Outpatient (REF) | payer OTHER, SELFPAY ==
--- NOTE | ~2021-10-03 | MR_ITS ---
EXAMINATION: MR LUMBAR SPINE WITHOUT CONTRAST CLINICAL INFORMATION: Right lower extremity numbness and weakness. COMPARISON: Lumbar spine radiographs 03/22/2020. TECHNIQUE: MRI of the lumbar spine was obtained using routine sequences without contrast. FINDINGS: Alignment is normal. Vertebral heights are preserved. No acute bone marrow signal changes. There is slight loss of intervertebral disc height and T2 signal intensity at L5-S1 related to disc degeneration. There is also disc desiccation at L4-L5. The tip of the conus medullaris is located at T12-L1. No mass effect on the conus. Visualized distal cord signal intensity is normal. At T12-L1, L1-L2, L2-L3, and L3-L4 the annular contours are normal. No canal or neuroforaminal compromise at these levels. At L4-L5 there is a slightly bulging disc. Bilateral facet degenerative change. No canal stenosis. Subarticular zone narrowing causes abutment of both traversing L5 nerve roots. No foraminal nerve root compression. At L5-S1 there is a bulging disc. Bilateral facet degenerative change. No canal stenosis. Subarticular zone narrowing causes abutment of both traversing S1 nerve roots. There is also mild mass effect on both L5 foraminal nerve roots, slightly greater on the left. Limited visualization of the retroperitoneal anatomy reveals no abnormal finding. Psoas and paraspinal muscle groups are symmetric. MR/MR lumbar spine wo con IMPRESSION: There is disc degeneration at L4-L5 and L5-S1. Symmetric subarticular zone narrowing at L5-S1 causes abutment of both traversing S1 nerve roots. There is also mild mass effect on both L5 foraminal nerve roots related to degenerative changes at L5-S1, greater on the left. No canal stenosis.
== END 2021-10-03 11:20 | disposition home or self-care (01) ==
LOC: HO.MRI 11:19
PROVIDERS: Visit Provider Nurse Practitioner Family
DX: R29.898 Other symptoms and signs involving the musculoskeletal system (principal); M51.36 Other intervertebral disc degeneration, lumbar region; M47.27 Other spondylosis with radiculopathy, lumbosacral region
CPT/HCPCS: 72148

== ENCOUNTER 2021-10-09 14:02 | Outpatient (REF) | payer OTHER, SELFPAY ==
--- NOTE | ~2021-10-09 | XR_ITS ---
EXAMINATION: XR SACRUM AND COCCYX CLINICAL INFORMATION: Fall with pain COMPARISON: March 22, 2020 TECHNIQUE: 3 views of the sacrum and coccyx. FINDINGS: No acute sacral or coccygeal fracture is appreciated. There is degenerative disc disease at the L5-S1 level with some marginal spurring and facet arthropathy bilaterally. No significant abnormality of the sacroiliac joints is seen. XR/XR sacrum coccyx min 2V IMPRESSION: No definite sacral or coccygeal fracture identified. Degenerative disc disease and facet arthropathy L5-S1.
== END 2021-10-09 14:03 | disposition home or self-care (01) ==
LOC: HO.HMGCX 14:02
PROVIDERS: PCP Internal Medicine; Visit Provider Physician Assistant
DX: M54.50 Low back pain, unspecified (principal); W19.XXXA Unspecified fall, initial encounter
CPT/HCPCS: 72220

== ENCOUNTER → 2021-10-10 09:40 | Outpatient (BNVA) | payer OTHER, SELFPAY | PROVIDERS: PCP Internal Medicine; Visit Provider Nurse Practitioner Family ==

== ENCOUNTER 2021-10-15 06:09 | Outpatient (REF) | payer OTHER, SELFPAY ==
--- NOTE | ~2021-10-15 | FL_ITS ---
EXAMINATION: XR FLUOROSCOPY WITH IMAGES CLINICAL INFORMATION: M17.11 - Unilateral primary osteoarthritis, right knee COMPARISON: MR right knee 05/01/2021 TECHNIQUE: Fluoroscopy performed by Dr. Stanton Mejia. Fluoroscopy time: 0.2 minutes DAP: 0.443 Gycm2 Images: 3 FINDINGS: There are spinal needles adjacent to the distal femoral shaft, medial and lateral sides, mid depth. There is a spinal needle adjacent to the proximal tibia on medial side mid depth. FL/FL guidance in treatment room IMPRESSION: Fluoroscopy for pain management procedures.
== END 2021-10-15 06:10 | disposition home or self-care (01) ==
LOC: HO.RADIR 06:09
PROVIDERS: Visit Provider Internal Medicine
DX: M17.11 Unilateral primary osteoarthritis, right knee (principal)
CPT/HCPCS: 64454; 64450

== ENCOUNTER → 2021-10-17 11:56 | Outpatient (BNVA) | payer OTHER, SELFPAY | PROVIDERS: PCP Internal Medicine; Visit Provider Nurse Practitioner Family ==

== ENCOUNTER 2021-10-29 12:44 | Outpatient (REF) | payer OTHER, SELFPAY ==
--- NOTE | ~2021-10-29 | US_ITS ---
EXAMINATION: ULTRASOUND EXTREMITY NONVASCULAR CLINICAL INFORMATION: Fall 4 weeks ago. Right buttock tender lump. COMPARISON: None TECHNIQUE: Grayscale and color imaging of the soft tissues of the right buttock using a linear and introducer FINDINGS: There is an 8.4 x 10.4 x 3.8 cm minimally complex fluid collection 2 cm and the to the skin. This demonstrates no increased vascularity. Given history of fall, this probably represents a resolving hematoma. Abscess cannot be excluded. US/US extremity nonvascular IMPRESSION: 8.4 x 10.4 x 3.8 cm minimally complex fluid collection in the right buttock probably representing a resolving hematoma. Abscess cannot be excluded. This would be amenable to ultrasound-guided aspiration if clinically indicated.
== END 2021-10-29 12:45 | disposition home or self-care (01) ==
LOC: HO.HMGCX 12:44
PROVIDERS: PCP Internal Medicine; Visit Provider Nurse Practitioner Family
DX: R22.9 Localized swelling, mass and lump, unspecified (principal)
CPT/HCPCS: 76882

== ENCOUNTER 2021-11-08 08:55 | Outpatient (REF) | payer OTHER, SELFPAY ==
--- NOTE | ~2021-11-08 | MM_ITS ---
EXAMINATION: MM SCREENING DIGITAL BREAST TOMOSYNTHESIS, BILATERAL CLINICAL INFORMATION: Screening. Asymptomatic. The lifetime risk of breast cancer based on the Tyrer-Cuzick Model is 7%. COMPARISON: Mammography: 10/26/2020, 10/21/2019, 10/26/2018 TECHNIQUE: Digital breast tomosynthesis is performed in both the craniocaudal and mediolateral oblique views along with computer-aided detection (CAD). Synthesized 2D images are generated from the tomosynthesis. FINDINGS: There are scattered areas of fibroglandular density (ACR BI-RADS breast composition Category b). There are no significant masses, abnormal calcifications, or other abnormalities. The axilla are unremarkable. There is chronic mild bilateral nipple retraction similar to prior studies. No skin thickening. No significant changes. MM/MM tomosynthesis screening BI IMPRESSION: No mammographic evidence of malignancy. ASSESSMENT: BI-RADS 2: Benign RECOMMENDATION: Routine annual mammography screening. This patient's information was entered into a reminder system with a target due date for their next mammogram.
== END 2021-11-08 08:56 | disposition home or self-care (01) ==
LOC: HO.MAMMO 08:55
PROVIDERS: PCP Internal Medicine; Visit Provider Internal Medicine
DX: Z12.31 Encounter for screening mammogram for malignant neoplasm of breast (principal)
CPT/HCPCS: 77063; 77067

== ENCOUNTER 2021-11-11 05:57 | Outpatient (REF) | payer OTHER, SELFPAY ==
--- NOTE | ~2021-11-11 | FL_ITS ---
EXAMINATION: XR FLUOROSCOPY WITH IMAGES CLINICAL INFORMATION: Spondylosis with radiculopathy. COMPARISON: None. TECHNIQUE: Fluoroscopy performed by Ofelia Tracey NP. Fluoroscopy time: 0.5 minutes DAP: 2.8 Gy-cm2 Images: 2 FINDINGS: Images demonstrate needle placement and contrast injection adjacent to the bilateral lateral L5 vertebral body. FL/FL guidance in treatment room IMPRESSION: Fluoroscopy guidance for pain management procedure.
== END 2021-11-11 05:58 | disposition home or self-care (01) ==
LOC: HO.RADIR 05:57
PROVIDERS: Visit Provider Anesthesiology
DX: M47.27 Other spondylosis with radiculopathy, lumbosacral region (principal); M54.50 Low back pain, unspecified; M51.36 Other intervertebral disc degeneration, lumbar region; M17.11 Unilateral primary osteoarthritis, right knee; M53.3 Sacrococcygeal disorders, not elsewhere classified
CPT/HCPCS: 64483; 64484; J3300; Q9967

== ENCOUNTER → 2021-11-20 15:15 | Outpatient (BNVA) | payer OTHER, SELFPAY | PROVIDERS: PCP Internal Medicine; Visit Provider Physician Assistant | DX: M17.11 Unilateral primary osteoarthritis, right knee (principal) | CPT/HCPCS: 20610; J1040 ==

== ENCOUNTER → 2021-12-04 10:14 | Outpatient (BNVA) | payer OTHER, SELFPAY | PROVIDERS: PCP Internal Medicine; Visit Provider Surgery | DX: Z13.89 Encounter for screening for other disorder (principal) ==

== ENCOUNTER → 2021-12-16 08:14 | Outpatient (BNVA) | payer OTHER, SELFPAY | PROVIDERS: PCP Internal Medicine; Visit Provider Nurse Practitioner Family | DX: M54.50 Low back pain, unspecified (principal) ==

== ENCOUNTER 2022-05-30 10:05 | Outpatient (REF) | payer OTHER, SELFPAY ==
[2022-05-30 10:16] LABS: MANUAL DIFF FLAG NO
[2022-05-30 11:24] LABS: Basophils Percent Auto 0.5 % (0-2); Eosinophils Absolute Auto 0.1 X10*3/uL (0.0-0.4); Eosinophils Percent Auto 1.7 % (0-4); Hematocrit 40.4 % (37.0-47.0); Hemoglobin 12.7 g/dl (12.0-16.0); Imm Gran Abs Auto 0.02 X10*3/uL (0.00-0.03); Imm Gran Pct Auto 0.3 % (0.0-0.4); Lymphocytes Absolute Auto 2.5 X10*3/uL (1.2-4.9); Mean Corpuscular HGB Conc 31.4 g/dl (31.0-35.0); Mean Corpuscular Hemoglobin 27.4 pg (27.0-33.0); Mean Corpuscular Volume 87.3 fL (80.0-98.0); Mean Platelet Volume 11.9 fL (9.4-12.3); Monocytes Absolute Auto 0.6 X10*3/uL (0.1-1.2); Monocytes Percent Auto 7.7 % (2-11); Neutrophils Absolute Auto 4.5 x10*3/uL (2.0-8.3); Neutrophils Percent Auto 57.8 % (45-73); Platelet Count 283 X10*3/uL (160-400); Red Blood Count 4.63 X10*6/uL (4.20-5.50); Red Cell Distribution Width 14.5 % (11.0-16.0); White Blood Count 7.8 X10*3/uL (4.8-10.8)
[2022-05-30 12:05] LABS: Estimated Average Glucose 117 mg/dL; Hemoglobin A1c % 5.7 %
[2022-05-30 12:39] LABS: Alanine Aminotransferase 18 U/L (0-31); Albumin Level 3.8 g/dL (3.5-5.0); Alkaline Phosphatase 81 U/L (39-117); Anion Gap 17 (12-20); Aspartate Amino Transferase 20 U/L (5-31); Bilirubin Total 0.4 mg/dL (0.0-1.0); Blood Urea Nitrogen 13 mg/dL (9-16); Carbon Dioxide 25 mmol/L (22-29); Chloride 104 mmol/L (96-108); Cholesterol 229 mg/dL; Estimated Glomerular Filt Rate > 60; Glucose Random 88 mg/dL (60-115); HDL Cholesterol 41 mg/dL; LDL Cholesterol Calculated 153 mg/dl; Potassium 4.2 mmol/L (3.3-5.1); Sodium 142 mmol/L (135-145); Total Protein 7.1 g/dL (6.5-8.0); Triglycerides 178 mg/dL
[2022-05-30 12:56] LABS: Free T4 (Free Thyroxine) 0.89 ng/dL (0.71-1.85); Thyroid Stimulating Hormone 2.03 uIU/mL (0.32-4.0); Vitamin D 25-OH Total 23.6 ng/mL (>30)
[2022-05-30 13:02] LABS: Folate 12.8 ng/mL (> or = 4.0); Vitamin B12 579 pg/mL (200-900)
== END 2022-05-30 10:06 | disposition home or self-care (01) ==
LOC: HO.LAB 10:05
PROVIDERS: PCP Internal Medicine; Visit Provider Internal Medicine
DX: E66.9 Obesity, unspecified (principal); E78.00 Pure hypercholesterolemia, unspecified
CPT/HCPCS: 36415; 80053; 80061; 82306; 82607; 82746; 83036; 84439; 84443; 85025

== ENCOUNTER 2022-07-28 11:31 | Outpatient (REF) | payer OTHER, SELFPAY ==
[2022-07-28 12:34] LABS: Influenza A PCR POSITIVE (Negative); Influenza B PCR NEGATIVE (Negative); Resp Syncy Virus RNA Qual PCR NEGATIVE (Negative); SARS COV2 PCR INHOUSE NEGATIVE (Negative)
== END 2022-07-28 11:32 | disposition home or self-care (01) ==
LOC: HO.LNP 11:31
PROVIDERS: Visit Provider Nurse Practitioner Family
DX: Z20.822 Contact with and (suspected) exposure to COVID-19 (principal); J06.9 Acute upper respiratory infection, unspecified
CPT/HCPCS: 0241U

== ENCOUNTER 2022-09-04 12:39 | Emergency (ER) | payer OTHER, SELFPAY ==
--- NOTE | ~2022-09-04 | CT_ITS ---
EXAMINATION: CT HEAD WITHOUT CONTRAST CLINICAL INFORMATION: Intermittent dizziness. COMPARISON: CT scan of the head 04/27/2017. TECHNIQUE: Contiguous axial imaging was performed from the skull base to vertex without intravenous administration of contrast. This CT examination was performed using dose optimization techniques as appropriate, variously including the following: *Automated exposure control *Adjustment of mA and/or kV according to patient size (this includes techniques or standardized protocols for targeted exams where dose is matched to indication/reason for exam; i.e. extremities or head) *Use of iterative reconstruction technique DLP: 700 mGy-cm FINDINGS: There is a low-density mass or collection located within the left cerebellopontine angle cistern causing subtle rightward displacement of the brainstem. Lateral and third ventricles are normal. No hydrocephalus. There is no acute hemorrhage. Bain-white matter differentiation is grossly preserved and there is no evidence of acute territorial infarct. The calvarium and skull base are intact. Mastoid air cells and middle ear cavities are well aerated. Mild to moderate paranasal sinus disease primarily affecting the maxillary sinuses. CT/CT head/brain wo IV con IMPRESSION: There is a low-density mass or collection located within the left cerebellopontine angle cistern. Possible diagnostic considerations include an arachnoid cyst or epidermoid. A dedicated brain MRI without and with contrast recommended for better anatomic characterization of this finding.
--- NOTE | ~2022-09-04 | XR_ITS ---
EXAMINATION: XR CHEST CLINICAL INFORMATION: Chest pain COMPARISON: 10/06/2017 TECHNIQUE: 2 views of the chest were obtained. FINDINGS: The lungs are well expanded. There is no focal consolidation, edema, or effusion. No pneumothorax. The cardiomediastinal silhouette is within normal limits. No acute osseous abnormality. Mild degenerative changes in the spine. XR/XR chest 2V IMPRESSION: Clear lungs.
[2022-09-04 12:42] VITALS: BP 177/97; PULSE 97; RESP 18; TEMP 36.8; O2SAT 99; BMI 34.5
--- NOTE | 2022-09-04 12:44 | ED.GENADULT ---
HPI - General Adult General Chief complaint: Chest Pain <LIBERTAD Oneil - Last Filed: 09/04/22 12:46> Stated complaint: High Blood pressure, chest pain, dizziness <LIBERTAD Oneil - Last Filed: 09/04/22 12:46> Time Seen by Provider: 09/04/22 14:24 <LIBERTAD Oneil - Last Filed: 09/04/22 12:46> Source: patient and family <LIBERTAD Mcbride Last Filed: 09/04/22 16:09> Mode of arrival: ambulatory <LIBERTAD Mcbride Last Filed: 09/04/22 16:09> Limitations: no limitations <LIBERTAD Mcbride Last Filed: 09/04/22 16:09> History of Present Illness HPI narrative: 52-year-old female with a past medical history of TMJ dysfunction, anemia, hyperlipidemia, hypertension, GERD and obesity who is presenting to the ER with multiple complaints which include intermittent dizziness, feeling like her eyes are shaking, nausea, chest pain, palpitation and shortness of breath. She reports that this has been intermittent over the past few weeks to months. She reports approximately 2 days ago she felt very dizzy. Today she does not feel dizzy although today when she was at work she felt some nausea, palpitations and chest pain. Therefore she came here for further evaluation treatment. Reports that she did take her blood pressure medication. She is on Ativan 1 mg and she usually takes 2 mg for her anxiety. She reports that she is not going through any significant stressors in her life at this time. She denies any headaches, recent falls or trauma to her head, recent tick bites, recent fevers, changes in vision, blurry vision, jaw pain, paresthesias, vomiting, radiation of the chest pain, dyspnea on exertion, orthopnea, any drug usage, abdominal pain, flank pain, back pain, dysuria, hematuria, abnormal vaginal discharge, black or bloody stools, lower extremity edema or calf tenderness, recent travel or sick contacts, cough, nasal congestion/rhinorrhea or any other symptoms complaints or concerns at this time. <LIBERTAD Mcbride Last Filed: 09/04/22 16:09> MD complaint: Dizziness, nausea, chest pain, palpitations, shortness of breath <LIBERTAD Mcbride Last Filed: 09/04/22 16:09> Onset (ago): month(s) <LIBERTDA Mcbride - Last Filed: 09/04/22 16:09> Related Data Home medications: Previous Rx's Medication Instructions Recorded leg brace (Knee Support Brace) #1 ea 06/28/20 cholecalciferol (vitamin D3) 25 50 mcg PO DAILY #180 tabs 08/18/21 mcg (1,000 unit) tablet Donut pillow #1 ea 10/10/21 tizanidine 4 mg tablet 4 mg PO Q8H PRN muscle spasticity 12/16/21 30 days #90 tabs docusate sodium 100 mg capsule 200 mg PO DAILY PRN constipation 01/12/22 #180 caps lorazepam 1 mg tablet 1 mg PO DAILY PRN agitation 90 01/30/22 days #90 tabs hydrochlorothiazide 25 mg tablet 25 mg PO QAM #90 tabs 02/18/22 omeprazole 20 mg capsule,delayed 40 mg PO DAILY #180 caps 04/16/22 release semaglutide 0.25 mg or 0.5 mg (2 0.25 mg (0.2 mL) subcut QWEEK #1.5 04/16/22 mg/1.5 mL) subcutaneous pen mL injector tramadol 50 mg tablet 50 mg PO Q8H PRN pain 30 days #90 04/23/22 tabs bisacodyl 5 mg tablet,delayed 10 mg PO ONCE colonoscopy prep 1 05/12/22 release (Dulcolax (bisacodyl)) day #2 tabs methylcellulose (laxative) 500 mg 500 mg PO BID #60 tabs 05/12/22 tablet (Citrucel) polyethylene glycol 3350 17 238 g PO ONCE 1 day #238 grams 05/12/22 gram/dose oral powder (Miralax) sertraline 100 mg tablet 100 mg PO DAILY #90 tabs 05/15/22 lidocaine 5 % topical patch 1 patch topical DAILY PRN for pain 06/11/22 #30 patches gabapentin 300 mg capsule 300 mg PO TID for pain 30 days #90 07/20/22 caps dextromethorphan HBr 20 mg/15 mL 20 mg (15 mL) PO TID PRN cough 5 07/28/22 oral solution days #118 mL oseltamivir 75 mg capsule (Tamiflu) 75 mg PO BID 5 days #10 caps 07/28/22 prednisone 20 mg tablet 40 mg PO DAILY 5 days #10 tabs 07/28/22 buspirone 7.5 mg tablet 7.5 mg PO BID 90 days #180 tabs 08/11/22 meloxicam 15 mg tablet 15 mg PO DAILY #14 tabs 08/11/22 <LIBERTAD Oneil - Last Filed: 09/04/22 12:46> Allergies/adverse reactions: Allergies Allergy/AdvReac Type Severity Reaction Status Date / Time No Known Allergies Allergy Verified 08/11/22 17:22 [No Known Allergies*] <LIBERTAD Oneil - Last Filed: 09/04/22 12:46> Review of Systems Review of Systems: Constitutional : No Weight loss, No Fever, No Chills, No Night Sweats, No Fatigue, No Malaise ENT/Mouth : No Hearing loss, No Ear Pain, No Nasal Congestion, No Sinus Pain, No Hoarseness, No sore throat, No Rhinorrhea, No Swallowing Difficulty Eyes: + feeling like her eyes were shaking, No Eye Pain, No Swelling, No Redness, No Foreign Body, No Discharge, No Vision Changes Cardiovascular : + Chest Pain, + SOB, No Dyspnea on Exertion, No Orthopnea, No Edema, + Palpitations Respiratory : No Cough, No Sputum, No Wheezing, No Smoke Exposure, No Dyspnea Gastrointestinal : No Nausea, No Vomiting, No Diarrhea, No Constipation, No abdominal Pain, No Hematochezia, No Melena Genitourinary : no irregular bleeding, No Dysuria, No Urinary Frequency, No Hematuria, No Urinary Incontinence, No Urgency, No Flank Pain, No Urinary Flow Changes, No Hesitancy Musculoskeletal : No joint pain, No Myalgias, No Joint Swelling Skin : No Skin Lesions, No rash Neuro : No Weakness, No Numbness, No Paresthesias, No Loss of Consciousness, + Dizziness intermittent for months, No Headache Psych : + Anxiety/Panic, No Depression, No SI/HI/AH/VH, No Social Issues, Heme/Lymph: No Bruising, No Bleeding,No Lymphadenopathy Endocrine : No Polyuria, No Polydipsia, No Temperature Intolerance <LIBERTAD Mcbride Last Filed: 09/04/22 16:09> Yes all other systems are reviewed and are negative <LIBERTAD Mcbride - Last Filed: 09/04/22 16:09> [facility] Past Medical History Attestation statement: The following information was validated with the patient. <LIBERTAD Mcbride - Last Filed: 09/04/22 16:09> Source: old records reviewed, obtained from family and nursing notes reviewed <LIBERTAD Mcbride - Last Filed: 09/04/22 16:09> Medical History: Medical History Anemia Avascular necrosis of right humeral head Bilateral carpal tunnel syndrome Epidermal inclusion cyst GERD (gastroesophageal reflux disease) Hip pain, right Hx of diverticulitis of colon Hx of tendinitis Hypercholesterolemia Hypertension Knee pain, left Lumbar degenerative disc disease Obesity (BMI 30-39.9) Primary osteoarthritis of hands, bilateral Requires management of nerve block infusion Rotator cuff disorder Vitamin D deficiency <LIBERTAD Oneil - Last Filed: 09/04/22 12:46> Surgical History: Surgical History History of foot surgery History of removal of cyst Hx of abdominoplasty Hx of cholecystectomy Hx of colonoscopy Hx of rotator cuff surgery Hx of tubal ligation Varicose veins of right lower extremity <LIBERTAD Oneil - Last Filed: 09/04/22 12:46> Family History Family History: Family History Father Hx of diabetes mellitus History of high cholesterol Mother Family hx of hypertension History of asthma Hx of heart disorder Brother Automobile accident Brother Suicide Family/Other No problems noted. Maternal Grandmother History of asthma Paternal Grandfather No problems noted. 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 Cognitive needs: No Hearing needs: No Vision needs: Yes <LIBERTAD Oneil - Last Filed: 09/04/22 12:46> Physical Exam ED Vital Signs: Vital Signs - 24 hr 09/04/22 12:42 Temperature 98.2 F Pulse Rate 97 Respiratory Rate 18 Blood Pressure 177/97 H Pulse Oximetry 99 Oxygen Delivery Method Room Air BMI result Body Mass Index 34.5 <LIBERTAD Oneil - Last Filed: 09/04/22 12:46> Vital Signs - 24 hr 09/04/22 12:42 Temperature 98.2 F Pulse Rate 97 Respiratory Rate 18 Blood Pressure 177/97 H Pulse Oximetry 99 Oxygen Delivery Method Room Air BMI result Body Mass Index 34.5 vital signs have been reviewed as normal and appeared to be correct. Blood pressure 177/97. Heart rate normal. Respiration rate normal. Temperature normal. Oxygen saturation normal. <LIBERTAD Mcbride - Last Filed: 09/04/22 16:09> Appearance: Alert. Oriented X3. No acute distress. Head: Normal external exam. Normocephalic. Atraumatic. Eyes: PERRLA. EOMI. Conjunctiva and sclera normal. Eyelids normal. ENT: EAC normal. TM's Normal. Pharynx normal. Uvula midline. Moist mucous membranes. No lesions/ulcerations or masses noted on the tongue. Normal voice. No trismus noted. No drooling noted. No muffled voice noted. Neck: Normal inspection. Neck supple. FROM. No adenopathy. Thyroid Normal. No tracheal deviation noted. No crepitus is noted. No meningeal signs. No neck mass noted. No signs of trauma noted. CVS: Normal heart rate and rhythm. Heart sound normal. Pulses normal throughout. No murmurs/rales/gallops. Respiratory: No respiratory distress. Painless inspiration. Breath sounds normal. No wheezes/rales/rhonchi noted. Chest nontender. No crepitus is noted. No signs of trauma noted. No accessory muscle usage noted or decreased air movement noted. No signs of trauma. Abdomen: Soft and nontender. Bowel sounds normal in all 4 quadrants. No distention noted. No organomegaly noted. No visible injury noted. Back: No CVA tenderness. Full range of motion noted. Nontender. No signs of trauma. Patient neuro intact bilaterally and distally on all 4 extremities. Patient's reflexes intact bilaterally and distally on all 4 extremities. No rashes/lesion/induration/fluctuance or signs of infection noted. Skin: Skin warm and dry. Normal skin color. Normal skin turgor. No rashes/lesions/lacerations noted. Extremities: No lower extremity edema. No calf tenderness is noted. Extremities exhibit normal range of motion and nontender. Neuro: Oriented X 3. No motor deficit. No sensory deficit. Reflexes normal. Normal steady gait. No focal neuro deficits noted. CN's II-XII intact bilaterally? Vascular: + radial pulses/+ 2 distal pedal pulses/+2 dorsalis pedis b/l. Normal cap refill. No cyanosis noted to upper extremity nails and lower extremity toes nails. <LIBERTAD Mcbride Last Filed: 09/04/22 16:09> Course Course Course Narrative: RME performed by Klarissa Munoz PA-C. Patient is a 52 year old female presenting to the emergency department with elevated blood pressure, palpitations, and anxiety. Blood work, CXR, and EKG ordered. Patient placed back in waiting room pending room availability. <LIBERTAD Oneil Filed: 09/04/22 12:46> Reevaluation(s) Reevaluation #1: 52-year-old female with a past medical history of TMJ dysfunction, anemia, hyperlipidemia, hypertension, GERD and obesity who is presenting to the ER with multiple complaints which include intermittent dizziness, feeling like her eyes are shaking, nausea, chest pain, palpitation and shortness of breath. She reports that this has been intermittent over the past few weeks to months. She reports approximately 2 days ago she felt very dizzy. Today she does not feel dizzy although today when she was at work she felt some nausea, palpitations and chest pain. Therefore she came here for further evaluation treatment. Reports that she did take her blood pressure medication. She is on Ativan 1 mg and she usually takes 2 mg for her anxiety. Patient has a normal steady gait. Normal strength equal bilateral in all 4 extremities. Normal sensation. Normal vital signs. Lungs clear to auscultation. CV RRR. No focal neuro deficits are noted. Labs obtained while she was in the waiting room and patient with leukocytosis of 10,000. Otherwise all other labs within normal limits including troponin. Chest x-ray within normal limits no acute processes noted. Therefore I ordered a CT scan CT scan revealed that patient has a possible cystic like mass in her brain otherwise no other acute processes although they are recommending MRI with and without contrast. This is not emergent as patient has been having dizziness for a few months and it appears that she was seen here last year for similar complaint. Therefore I discussed this case with Dr. Bianchi and Kimberly from Neurology and they reported that this is not emergent she does not need a MRI today. She will have proper follow-up with Dr. Haynes her PCP who I also discussed this with and send him the results and he reports that he will follow up with her for further evaluation treatment regarding this. Patient understands to follow-up with her PCP and to return if any new or worsening symptoms. <LIBERTAD Mcbride - Last Filed: 09/04/22 16:09> Time: 15:46 <LIBERTAD Mcbride - Last Filed: 09/04/22 16:09> Medications Administered Discontinued Medications Generic Name Dose Route Start Last Admin Trade Name Freq PRN Reason Stop Dose Admin Lorazepam 2 mg 09/04/22 14:38 09/04/22 14:44 Lorazepam 1 Mg Tablet PO 09/04/22 14:39 2 mg ONCE ONE Administration <LIBERTAD Oneil - Last Filed: 09/04/22 12:46> Medications Administered Discontinued Medications Generic Name Dose Route Start Last Admin Trade Name Freq PRN Reason Stop Dose Admin Lorazepam 2 mg 09/04/22 14:38 09/04/22 14:44 Lorazepam 1 Mg Tablet PO 09/04/22 14:39 2 mg ONCE ONE Administration <LIBERTAD Mcbride - Last Filed: 09/04/22 16:09> Medical Decision Making Consult Healthcare Provider Management of the patient was discussed with: Primary Care Provider (Dr. Mian Haynes who will make sure that he called the patient to make a follow-up appointment for further evaluation treatment) <LIBERTAD Mcbride - Last Filed: 09/04/22 16:09> Lab Data MDM Lab Attestation statement: I reviewed the patient's lab results. <LIBERTAD Mcbride - Last Filed: 09/04/22 16:09> Result Diagrams: 09/04/22 13:01 09/04/22 13:01 <LIBERTAD Oneil - Last Filed: 09/04/22 12:46> Labs: Lab Results 09/04/22 09/04/22 09/04/22 Range/Units 13:01 13:01 13:01 WBC 10.9 H (4.8-10.8) X10*3/uL RBC 4.58 (4.20-5.50) X10*6/uL Hgb 12.3 (12.0-16.0) g/dl Hct 38.1 (37.0-47.0) % MCV 83.2 (80.0-98.0) fL MCH 26.9 L (27.0-33.0) pg MCHC 32.3 (31.0-35.0) g/dl RDW 15.0 (11.0-16.0) % Plt Count 350 (160-400) X10*3/uL MPV 9.8 (9.4-12.3) fL Immature Gran % (Auto) 0.5 H (0.0-0.4) % Neut % (Auto) 67.5 (45-73) % Lymph % (Auto) 25.1 (20-40) % Haralson % (Auto) 5.8 (2-11) % Eos % (Auto) 0.6 (0-4) % Baso % (Auto) 0.5 (0-2) % Lymph # (Auto) 2.7 (1.2-4.9) X10*3/uL Haralson # (Auto) 0.6 (0.1-1.2) X10*3/uL Eos # (Auto) 0.1 (0.0-0.4) X10*3/uL Baso # (Auto) 0.1 (0.0-0.2) X10*3/uL Abs Immat Gran (auto) 0.05 H (0.00-0.03) X10*3/uL Absolute Neuts (auto) 7.4 (2.0-8.3) x10*3/uL Absolute Nucleated RBC 0.000 (0.0-0.012) X10*3/uL Nucleated RBC % (auto) 0.0 (0.0-0.2) /100WBC Sodium 140 (135-145) mmol/L Potassium 3.9 (3.3-5.1) mmol/L Chloride 102 (96-108) mmol/L Carbon Dioxide 27 (22-29) mmol/L Anion Gap 15 (12-20) BUN 14 (9-16) mg/dL Creatinine 0.81 (0.5-1.4) mg/dL Estim Creat Clear Calc 86.6 Estimated GFR > 60 Random Glucose 94 (60-115) mg/dL Calcium 9.6 D (8.4-10.2) mg/dL Magnesium 2.0 (1.6-2.6) mg/dL Total Bilirubin 0.4 (0.0-1.0) mg/dL AST 18 (5-31) U/L ALT 31 (0-31) U/L Alkaline Phosphatase 87 (39-117) U/L Troponin I High Sens < 3.5 (<3.5-17.0) ng/L Total Protein 7.3 (6.5-8.0) g/dL Albumin 4.1 (3.5-5.0) g/dL <LIBERTAD Oneil - Last Filed: 09/04/22 12:46> Lab Results 09/04/22 09/04/22 09/04/22 Range/Units 13:01 13:01 13:01 WBC 10.9 H (4.8-10.8) X10*3/uL RBC 4.58 (4.20-5.50) X10*6/uL Hgb 12.3 (12.0-16.0) g/dl Hct 38.1 (37.0-47.0) % MCV 83.2 (80.0-98.0) fL MCH 26.9 L (27.0-33.0) pg MCHC 32.3 (31.0-35.0) g/dl RDW 15.0 (11.0-16.0) % Plt Count 350 (160-400) X10*3/uL MPV 9.8 (9.4-12.3) fL Immature Gran % (Auto) 0.5 H (0.0-0.4) % Neut % (Auto) 67.5 (45-73) % Lymph % (Auto) 25.1 (20-40) % Haralson % (Auto) 5.8 (2-11) % Eos % (Auto) 0.6 (0-4) % Baso % (Auto) 0.5 (0-2) % Lymph # (Auto) 2.7 (1.2-4.9) X10*3/uL Haralson # (Auto) 0.6 (0.1-1.2) X10*3/uL Eos # (Auto) 0.1 (0.0-0.4) X10*3/uL Baso # (Auto) 0.1 (0.0-0.2) X10*3/uL Abs Immat Gran (auto) 0.05 H (0.00-0.03) X10*3/uL Absolute Neuts (auto) 7.4 (2.0-8.3) x10*3/uL Absolute Nucleated RBC 0.000 (0.0-0.012) X10*3/uL Nucleated RBC % (auto) 0.0 (0.0-0.2) /100WBC Sodium 140 (135-145) mmol/L Potassium 3.9 (3.3-5.1) mmol/L Chloride 102 (96-108) mmol/L Carbon Dioxide 27 (22-29) mmol/L Anion Gap 15 (12-20) BUN 14 (9-16) mg/dL Creatinine 0.81 (0.5-1.4) mg/dL Estim Creat Clear Calc 86.6 Estimated GFR > 60 Random Glucose 94 (60-115) mg/dL Calcium 9.6 D (8.4-10.2) mg/dL Magnesium 2.0 (1.6-2.6) mg/dL Total Bilirubin 0.4 (0.0-1.0) mg/dL AST 18 (5-31) U/L ALT 31 (0-31) U/L Alkaline Phosphatase 87 (39-117) U/L Troponin I High Sens < 3.5 (<3.5-17.0) ng/L Total Protein 7.3 (6.5-8.0) g/dL Albumin 4.1 (3.5-5.0) g/dL <LIBERTAD Mcbride - Last Filed: 09/04/22 16:09> Independent Interpretation I performed an independent interpretation of an: EKG (EKG normal sinus rhythm ventricular rate of 87 with LVH no acute ischemic change are noted. Similar compared to prior EKG 05/12/2021.), Plain X-Ray and CT Scan <LIBERTAD Mcbride - Last Filed: 09/04/22 16:09> Interpretation: FINDINGS: The lungs are well expanded. There is no focal consolidation, edema, or effusion. No pneumothorax. The cardiomediastinal silhouette is within normal limits. No acute osseous abnormality. Mild degenerative changes in the spine. XR/XR chest 2V IMPRESSION: Clear lungs. FINDINGS: There is a low-density mass or collection located within the left cerebellopontine angle cistern causing subtle rightward displacement of the brainstem. Lateral and third ventricles are normal. No hydrocephalus. There is no acute hemorrhage. Bain-white matter differentiation is grossly preserved and there is no evidence of acute territorial infarct. The calvarium and skull base are intact. Mastoid air cells and middle ear cavities are well aerated. Mild to moderate paranasal sinus disease primarily affecting the maxillary sinuses. ? CT/CT head/brain wo IV con IMPRESSION: There is a low-density mass or collection located within the left cerebellopontine angle cistern. Possible diagnostic considerations include an arachnoid cyst or epidermoid. A dedicated brain MRI without and with contrast recommended for better anatomic characterization of this finding. <LIBERTAD Mcbride - Last Filed: 09/04/22 16:09> Radiology Impression Discussion of test interpretation with radiology: I have reviewed the radiologist's reading. <LIBERTAD Mcbride - Last Filed: 09/04/22 16:09> Independent Historian Clinical information obtained from an independent historian. History obtained from or confirmed by: Spouse <LIBERTAD Mcbride Last Filed: 09/04/22 16:09> External Record Review External record reviewed: Inpatient record, Office record, Outpatient record, Prior outpatient labs, Prior outpatient radiology, Primary care record and Outside ED record <LIBERTAD Mcbride Last Filed: 09/04/22 16:09> Chronic Conditions Patient?s care impacted by: Hypertension <LIBERTAD Mcbride Last Filed: 09/04/22 16:09> Critical Care Time Critical Care Time Critical Care Time: Yes <LIBERTAD Mcbride - Last Filed: 09/04/22 16:09> Total Critical Care Time: 60 <LIBERTAD Mcbride - Last Filed: 09/04/22 16:09> Attestation: I personally attest to this time spent taking care of the patient <LIBERTAD Mcbride - Last Filed: 09/04/22 16:09> Discharge Plan Discharge Clinical Impression: Dizziness, nonspecific, Atypical chest pain, Mass, brain, Palpitations <LIBERTAD Oneil - Last Filed: 09/04/22 12:46> Patient Disposition: Home, Self-Care <LIBERTAD Oneil - Last Filed: 09/04/22 12:46> Instructions: Noncardiac Chest Pain (ED), Dizziness (ED), Heart Palpitations (DC) <LIBERTAD Oneil - Last Filed: 09/04/22 12:46> Additional Instructions: You were found to have an abnormal CT scan of your brain. Therefore I discussed this case with your primary care provider and he will follow-up with you as an outpatient for further evaluation treatment. Return if any new or worsening symptoms. <LIBERTAD Oneil - Last Filed: 09/04/22 12:46> Prescriptions: No Action cholecalciferol (vitamin D3) 25 mcg (1,000 unit) tablet 50 mcg PO DAILY Qty: 180 3RF docusate sodium 100 mg capsule 200 mg PO DAILY PRN (Reason: constipation) Qty: 180 3RF lorazepam 1 mg tablet 1 mg PO DAILY PRN (Reason: agitation) 90 Days Qty: 90 1RF hydrochlorothiazide 25 mg tablet 25 mg PO QAM Qty: 90 2RF tramadol 50 mg tablet 50 mg PO Q8H PRN (Reason: pain) 30 Days Qty: 90 2RF sertraline 100 mg tablet 100 mg PO DAILY Qty: 90 2RF gabapentin 300 mg capsule 300 mg PO TID 30 Days Qty: 90 3RF oseltamivir [Tamiflu] 75 mg capsule 75 mg PO BID 5 Days Qty: 10 0RF buspirone 7.5 mg tablet 7.5 mg PO BID 90 Days Qty: 180 0RF omeprazole 20 mg capsule,delayed release(DR/EC) 40 mg PO DAILY Qty: 180 3RF semaglutide 0.25 mg or 0.5 mg(2 mg/1.5 mL) pen injector 0.25 mg subcut QWEEK Qty: 1.5 3RF Rx Instructions: administer 0.25 mg once weekly x 4 weeks; increase dose to 0.5 mg once weekly after 4 weeks prednisone 20 mg tablet 40 mg PO DAILY 5 Days Qty: 10 0RF dextromethorphan HBr 20 mg/15 mL solution 20 mg PO TID PRN (Reason: cough) 5 Days Qty: 118 1RF meloxicam 15 mg tablet 15 mg PO DAILY Qty: 14 0RF (DME) Knee Support Brace Misc See Rx Instructions .MEDSUPPLY Qty: 1 0RF Rx Instructions: [id number] knee support (DME) Donut pillow Misc See Rx Instructions .Route Qty: 1 0RF Rx Instructions: As directed tizanidine 4 mg tablet 4 mg PO Q8H PRN (Reason: muscle spasticity) 30 Days Qty: 90 1RF bisacodyl [Dulcolax (bisacodyl)] 5 mg tablet,delayed release (DR/EC) 10 mg PO ONCE 1 Days Qty: 2 0RF Rx Instructions: Take 2 tablets by mouth at 12:00pm the day before your procedure. polyethylene glycol 3350 [Miralax] 17 gram/dose powder 238 g PO ONCE 1 Days Qty: 238 0RF Rx Instructions: Take as directed by mouth the day before your procedure. Citrucel 500 mg tablet 500 mg PO BID Qty: 60 5RF lidocaine 5 % adhesive patch,medicated 1 patch topical DAILY PRN (Reason: for pain) Qty: 30 3RF <LIBERTAD Oneil - Last Filed: 09/04/22 12:46> Referrals: Po,Mian Howard MD [Primary Care Provider] - (Call to make a follow-up appointment) <LIBERTAD Oneil - Last Filed: 09/04/22 12:46> Stand Alone Forms: Work/School Release <LIBERTAD Oneil - Last Filed: 09/04/22 12:46>
--- NOTE | 2022-09-04 12:45 | ECG_ITS ---
Test Reason : chest pain Blood Pressure : / mmHG Vent. Rate : 087 BPM Atrial Rate : 087 BPM P-R Int : 126 ms QRS Dur : 088 ms QT Int : 384 ms P-R-T Axes : 024 -13 006 degrees QTc Int : 462 ms Normal sinus rhythm Minimal voltage criteria for LVH, may be normal variant ( R in aVL ) Borderline ECG When compared with ECG of 12-MAY-2021 10:22, No significant change was found Referred By: Klarissa Munoz Electronically Signed By:JORGE A KRISHNAMURTHY
[2022-09-04 13:09] LABS: MANUAL DIFF FLAG NO
[2022-09-04 13:12] LABS: Basophils Absolute Auto 0.1 X10*3/uL (0.0-0.2); Basophils Percent Auto 0.5 % (0-2); Eosinophils Absolute Auto 0.1 X10*3/uL (0.0-0.4); Eosinophils Percent Auto 0.6 % (0-4); Hematocrit 38.1 % (37.0-47.0); Hemoglobin 12.3 g/dl (12.0-16.0); Imm Gran Abs Auto 0.05 X10*3/uL (0.00-0.03); Imm Gran Pct Auto 0.5 % (0.0-0.4); Lymphocytes Absolute Auto 2.7 X10*3/uL (1.2-4.9); Lymphocytes Percent Auto 25.1 % (20-40); Mean Corpuscular HGB Conc 32.3 g/dl (31.0-35.0); Mean Corpuscular Hemoglobin 26.9 pg (27.0-33.0); Mean Corpuscular Volume 83.2 fL (80.0-98.0); Mean Platelet Volume 9.8 fL (9.4-12.3); Monocytes Absolute Auto 0.6 X10*3/uL (0.1-1.2); Monocytes Percent Auto 5.8 % (2-11); Neutrophils Absolute Auto 7.4 x10*3/uL (2.0-8.3); Neutrophils Percent Auto 67.5 % (45-73); Platelet Count 350 X10*3/uL (160-400); Red Blood Count 4.58 X10*6/uL (4.20-5.50); White Blood Count 10.9 X10*3/uL (4.8-10.8)
[2022-09-04 13:30] LABS: Alanine Aminotransferase 31 U/L (0-31); Albumin Level 4.1 g/dL (3.5-5.0); Alkaline Phosphatase 87 U/L (39-117); Anion Gap 15 (12-20); Aspartate Amino Transferase 18 U/L (5-31); Bilirubin Total 0.4 mg/dL (0.0-1.0); Blood Urea Nitrogen 14 mg/dL (9-16); Calcium 9.6 mg/dL (8.4-10.2); Carbon Dioxide 27 mmol/L (22-29); Chloride 102 mmol/L (96-108); Creatinine Clr Calc Pharmacy 86.6; Estimated Glomerular Filt Rate > 60; Glucose Random 94 mg/dL (60-115); Potassium 3.9 mmol/L (3.3-5.1); Sodium 140 mmol/L (135-145); Total Protein 7.3 g/dL (6.5-8.0)
[2022-09-04 13:40] LABS: Troponin-I High Sensitivity < 3.5 ng/L (<3.5-17.0)
[2022-09-04] MEDS: LORazepam 1 MG TABLET 2 MG PO (14:44)
== END 2022-09-04 16:11 | disposition home or self-care (01) ==
PROVIDERS: Physician Assistant Medical; Emergency Provider Student in an Organized Health Care Education/Training Program; PCP Internal Medicine
DX: R42 Dizziness and giddiness (principal); R07.89 Other chest pain; R00.2 Palpitations; G93.9 Disorder of brain, unspecified; I10 Essential (primary) hypertension; E78.5 Hyperlipidemia, unspecified; F41.9 Anxiety disorder, unspecified; Z87.891 Personal history of nicotine dependence; Z79.899 Other long term (current) drug therapy
CPT/HCPCS: 36415; 70450; 71046; 80053; 83735; 84484; 85025; 93005; 99283; 99284

== ENCOUNTER 2022-09-09 11:53 | Outpatient (REF) | payer OTHER, SELFPAY ==
--- NOTE | ~2022-09-09 | MR_ITS ---
MR BRAIN WITHOUT AND WITH CONTRAST CLINICAL INFORMATION: Brain mass seen on CT. COMPARISON: Head CT 09/04/2022. TECHNIQUE: Multiplanar, multisequence MRI of the brain was obtained before and after the intravenous administration of 9 mL of Gadavist. FINDINGS: There is a 2.7 cm AP by 3.3 cm TV nonenhancing and diffusion restricting T2 signal hyperintense lesion within the left paramesencephalic cistern, the left cerebellopontine, the left cerebellomedullary angle that is most compatible with an epidermoid cyst. Lesion results in flattening of the left lateral claudio and the paramesencephalic portion of the lesion is partially inseparable from the left posterior cerebral artery. There is no hydrocephalus, extra-axial surface collection, or herniation. The major flow voids at the skull base are preserved. There is no acute infarct on diffusion-weighted imaging. There is no intracranial hemorrhage on the gradient recalled echo acquisition. The midline structures are normal. The cerebellar tonsils are normally positioned. The craniocervical junction is normal. Osseous marrow signal intensity is homogenous. The visualized soft tissues are unremarkable. MR/MR head/brain wo/w con IMPRESSION: There is a nonenhancing and diffusion restricting T2 signal hyperintense lesion within the left paramesencephalic cistern, the left cerebellopontine, the left cerebellomedullary angle that is most compatible with an epidermoid cyst. Lesion results in flattening of the left lateral claudio and the paramesencephalic portion of the lesion is partially inseparable from the left posterior cerebral artery.
== END 2022-09-09 11:54 | disposition home or self-care (01) ==
LOC: HO.MRI 11:53
PROVIDERS: Visit Provider Internal Medicine
DX: G93.89 Other specified disorders of brain (principal)
CPT/HCPCS: 70553; A9585

== ENCOUNTER 2022-11-14 08:21 | Outpatient (REF) | payer OTHER, SELFPAY ==
--- NOTE | ~2022-11-14 | MM_ITS ---
EXAMINATION: MM SCREENING DIGITAL BREAST TOMOSYNTHESIS, BILATERAL CLINICAL INFORMATION: Screening. Asymptomatic. The lifetime risk of breast cancer based on the Tyrer-Cuzick Model is 7%. COMPARISON: Mammography: 11/08/2021, 10/26/2020, 10/21/2019, 10/08/2018 TECHNIQUE: Digital breast tomosynthesis is performed in both the craniocaudal and mediolateral oblique views along with computer-aided detection (CAD). Synthesized 2D images are generated from the tomosynthesis. Additional left MLO view is provided. FINDINGS: There are scattered areas of fibroglandular density (ACR BI-RADS breast composition Category b). No architectural abnormality or developing density or significant change from prior studies. There are no significant masses, abnormal calcifications, or other abnormalities. The axilla are unremarkable. Mild bilateral nipple retraction is chronic finding. There are no significant changes from prior studies. MM/MM tomosynthesis screening BI IMPRESSION: No mammographic evidence of malignancy. ASSESSMENT: BI-RADS 2: Benign RECOMMENDATION: Routine annual mammography screening. This patient's information was entered into a reminder system with a target due date for their next mammogram.
== END 2022-11-14 08:22 | disposition home or self-care (01) ==
LOC: HO.MAMMO 08:21
PROVIDERS: PCP Internal Medicine; Visit Provider Internal Medicine
DX: Z12.31 Encounter for screening mammogram for malignant neoplasm of breast (principal)
CPT/HCPCS: 77063; 77067

== ENCOUNTER 2022-12-23 08:58 | Outpatient (REF) | payer OTHER, SELFPAY ==
--- NOTE | ~2022-12-23 | XR_ITS ---
EXAMINATION: XR FOOT, RIGHT XR FOOT, LEFT XR HAND, RIGHT XR HAND, LEFT XR KNEE, LEFT CLINICAL INFORMATION: Pain. COMPARISON: Left knee of 01/31/2021, bilateral hand and wrist of 06/05/2019, and left ankle 08/21/2014. TECHNIQUE: AP and lateral views of the left knee, 3 views of each hand, and 3 views of each foot. FINDINGS: LEFT KNEE: There is no evidence of acute fracture, dislocation, or effusion of the left knee. There is some mild narrowing of the patellofemoral joint with mild spurring. There is a patellar spur at site of insertion of the quadriceps tendon. There is a corticated bony density seen about the anterior joint which does not have the appearance of a tibial spine and may represent a loose body. No definite donor site is appreciated on the 2 provided images. LEFT FOOT: There is no evidence of acute fracture or dislocation of the left foot. Old fracture about the head of the 5th proximal phalanx present. Calcaneal spurs at sites of insertion of Achilles and plantar tendons noted. Joint spaces are maintained. No erosive changes. RIGHT FOOT: There is no evidence of acute fracture or dislocation of the right foot. Joint spaces are maintained. No erosive changes evident. There is some mild spurring present about the tarsal bones dorsally. RIGHT HAND: There is no evidence of acute fracture or dislocation of the right hand. Right hand joint spaces are maintained. There is mild degenerative change of the 1st carpometacarpal joint with marginal spurring. There is some marginal spurring seen involving the 1st interphalangeal joint. No erosive changes are appreciated. LEFT HAND: There is no evidence of acute fracture or dislocation of the left hand. Left hand joint spaces are maintained. Mild degenerative spurring is seen about the 1st interphalangeal joint. There are a few erosions or subchondral cysts seen involving the head of the 1st proximal phalanx. XR/XR hand LT min 3V IMPRESSION: No acute fracture or dislocation identified. Degenerative changes as described above. Question left knee loose body but without effusion identified. Left foot calcaneal spurs.
== END 2022-12-23 08:59 | disposition home or self-care (01) ==
LOC: HO.XRAY 08:58
PROVIDERS: Absent Provider Internal Medicine; PCP Internal Medicine; Visit Provider Nurse Practitioner Family
DX: M25.562 Pain in left knee (principal); M79.642 Pain in left hand; M79.641 Pain in right hand; M79.671 Pain in right foot; M79.672 Pain in left foot
CPT/HCPCS: 73130; 73560; 73630

== ENCOUNTER 2023-01-15 07:48 | Outpatient (REF) | payer OTHER, SELFPAY ==
--- NOTE | ~2023-01-15 | US_ITS ---
EXAMINATION: US DIAGNOSTIC ULTRASOUND BREAST, RIGHT CLINICAL INFORMATION: Right retroareolar intermittent mastodynia for around 3 months. No palpable mass or discharge. COMPARISON: Digital breast tomosynthesis 11/14/2022. TECHNIQUE: Ultrasound right breast is targeted to the periareolar and retroareolar region using grayscale imaging and color Doppler without and with harmonics. FINDINGS: There is no focal suspicious finding. There is no cystic or solid mass, architectural abnormality, duct ectasia, or edema in the soft tissue planes. Results are discussed with the patient at time of visit. US/US breast RT limited IMPRESSION: - Normal study. ASSESSMENT: BI-RADS 1: Negative RECOMMENDATION: 1. Patient should be managed based on the clinical impression. 2. Otherwise, routine annual screening mammography. This patient's information was entered into a reminder system with a target due date for their next mammogram.
== END 2023-01-15 07:49 | disposition home or self-care (01) ==
LOC: HO.MAMMO 07:48
PROVIDERS: PCP Internal Medicine; Visit Provider Internal Medicine
DX: N64.4 Mastodynia (principal); M17.0 Bilateral primary osteoarthritis of knee; M23.92 Unspecified internal derangement of left knee
CPT/HCPCS: 20610; 76642; J1100

== ENCOUNTER 2023-01-15 09:00 | Outpatient (REF) | payer OTHER, SELFPAY ==
--- NOTE | ~2023-01-15 | XR_ITS ---
EXAMINATION: XR BILATERAL KNEES CLINICAL INFORMATION: Reason for Exam M25.569 - Pain in unspecified knee COMPARISON: Knee radiographs 10/23/2022 and 06/26/2020 and 05/31/2020 TECHNIQUE: 1 views of the bilateral knees standing and 2 views of each knee FINDINGS: RIGHT KNEE: No acute fracture or dislocation. Moderate degenerative changes of the knee with loss of medial compartment joint space and tricompartmental osteophytes progressed from prior. No joint effusion. Soft tissues are unremarkable. LEFT KNEE: No acute fracture or dislocation. Moderate degenerative changes of the knee with loss of medial compartment and patellofemoral compartment joint space and lateral and patellofemoral compartment osteophytes, similar to prior. Few ossifications in the tibiofemoral joint space measuring up to 9 mm may reflect loose bodies. Small suprapatellar joint effusion. Soft tissues are unremarkable. XR/XR knee LT 2V IMPRESSION: * No acute osseous abnormality. * Moderate degenerative changes of the knees. * Small left suprapatellar joint effusion and left calcifications in the tibiofemoral joint space which may reflect loose bodies.
--- NOTE | ~2023-01-15 | XR_ITS ---
EXAMINATION: XR BILATERAL KNEES CLINICAL INFORMATION: Reason for Exam M25.569 - Pain in unspecified knee COMPARISON: Knee radiographs 10/23/2022 and 06/26/2020 and 05/31/2020 TECHNIQUE: 1 views of the bilateral knees standing and 2 views of each knee FINDINGS: RIGHT KNEE: No acute fracture or dislocation. Moderate degenerative changes of the knee with loss of medial compartment joint space and tricompartmental osteophytes progressed from prior. No joint effusion. Soft tissues are unremarkable. LEFT KNEE: No acute fracture or dislocation. Moderate degenerative changes of the knee with loss of medial compartment and patellofemoral compartment joint space and lateral and patellofemoral compartment osteophytes, similar to prior. Few ossifications in the tibiofemoral joint space measuring up to 9 mm may reflect loose bodies. Small suprapatellar joint effusion. Soft tissues are unremarkable. XR/XR knee RT 2V IMPRESSION: * No acute osseous abnormality. * Moderate degenerative changes of the knees. * Small left suprapatellar joint effusion and left calcifications in the tibiofemoral joint space which may reflect loose bodies.
--- NOTE | ~2023-01-15 | XR_ITS ---
EXAMINATION: XR BILATERAL KNEES CLINICAL INFORMATION: Reason for Exam M25.569 - Pain in unspecified knee COMPARISON: Knee radiographs 10/23/2022 and 06/26/2020 and 05/31/2020 TECHNIQUE: 1 views of the bilateral knees standing and 2 views of each knee FINDINGS: RIGHT KNEE: No acute fracture or dislocation. Moderate degenerative changes of the knee with loss of medial compartment joint space and tricompartmental osteophytes progressed from prior. No joint effusion. Soft tissues are unremarkable. LEFT KNEE: No acute fracture or dislocation. Moderate degenerative changes of the knee with loss of medial compartment and patellofemoral compartment joint space and lateral and patellofemoral compartment osteophytes, similar to prior. Few ossifications in the tibiofemoral joint space measuring up to 9 mm may reflect loose bodies. Small suprapatellar joint effusion. Soft tissues are unremarkable. XR/XR knee standing BI IMPRESSION: * No acute osseous abnormality. * Moderate degenerative changes of the knees. * Small left suprapatellar joint effusion and left calcifications in the tibiofemoral joint space which may reflect loose bodies.
== END 2023-01-15 09:01 | disposition home or self-care (01) ==
LOC: HO.HOSX 09:00
PROVIDERS: Visit Provider Orthopaedic Surgery
DX: M25.561 Pain in right knee (principal); M25.562 Pain in left knee
CPT/HCPCS: 73560; 73565

== ENCOUNTER 2023-02-23 08:33 | Day surgery (SDC) | payer OTHER, SELFPAY ==
--- NOTE | 2023-02-22 11:58 | P.CONAN_ITS ---
HPI - Anesthesia Eval Consult details Narrative: 52yo F for Colonoscopy PMF Active Problems Active Problems: All Active Problems (Updated 01/15/23 @ 09:38 by Pola Blas) Internal derangement of left knee (Acute) Facial dermatitis (Acute) Facial dermatitis (Acute) Breast pain, right (Acute) Osteoarthritis of knees, bilateral (Acute) Vitamin D deficiency (Acute) Dizziness (Acute) Epidermoid cyst of brain (Acute) Brain mass (Acute) Anemia (Acute) TMJ dysfunction (Acute) Viral upper respiratory illness (Acute) Knee pain, left (Acute) Bilateral hand pain (Acute) Bilateral knee pain (Acute) Chronic constipation (Acute) History of adenomatous polyp of colon (Acute) Colon cancer screening (Acute) Traumatic hematoma of buttock (Acute) Lump of skin (Acute) Myofascial low back pain (Acute) Coccyxdynia (Acute) Fall (Acute) Lumbosacral spondylosis with radiculopathy (Acute) Lumbar degenerative disc disease (Acute) Weakness of right lower extremity (Acute) Osteoarthritis of right knee (Acute) COVID-19 virus infection (Acute) Tear of medial meniscus of right knee (Acute) Generalized anxiety disorder (Acute) Annual physical exam (Acute) Epidermal inclusion cyst (Acute) Trochanteric bursitis, right hip (Acute) Knee pain, left (Acute) Sebaceous cyst (Acute) Obesity (BMI 30-39.9) (Acute) Hypercholesterolemia (Acute) GERD (gastroesophageal reflux disease) (Acute) Hypertension (Acute) Bilateral carpal tunnel syndrome (Acute) Primary osteoarthritis of hands, bilateral (Acute) Osteoarthritis of right knee (Acute) Avascular necrosis of right humeral head (Acute) Past Medical History Medical History (Updated 02/23/23 @ 08:58 by Venita Spicer RN) Anemia Avascular necrosis of right humeral head Bilateral carpal tunnel syndrome Breast pain, right Epidermal inclusion cyst Facial dermatitis GERD (gastroesophageal reflux disease) Heart murmur Hip pain, right Hx of diverticulitis of colon Hx of tendinitis Hypercholesterolemia Hypertension Knee pain, left Lumbar degenerative disc disease Obesity (BMI 30-39.9) Primary osteoarthritis of hands, bilateral Requires management of nerve block infusion Rotator cuff disorder Vitamin D deficiency Family History Family History Father Hx of diabetes mellitus History of high cholesterol Mother Family hx of hypertension History of asthma Hx of heart disorder Brother Automobile accident Brother Suicide Family/Other No problems noted. Maternal Grandmother History of asthma Paternal Grandfather No problems noted. Daughter In good health Daughter In good health Daughter In good health Family history of problems with anesthesia: No Surgical History Surgical History (Updated 03/01/23 @ 11:33 by Rosa Perez) History of foot surgery History of removal of cyst Hx of abdominoplasty Hx of cholecystectomy Hx of colonoscopy Hx of rotator cuff surgery Hx of tubal ligation Varicose veins of right lower extremity History of Problems with Anesthesia: No Social History Social History Housing: House Alcohol intake: current Alcohol intake frequency: holidays/special occasions only Patient Tobacco Use Status: Former Tobacco user Tobacco use type: Cigarette Years Smoked: stopped 1-2 cigarettes at a time > 2009 e-Cigarette/Vaping Use: Former Use Second Hand Smoke Exposure: No Use of substances other than those prescribed or required for medical reasons: Yes Are you DNR?: No Advance Directives: No Advance Directives Information Provided: Yes Recently lost weight without trying: No Nutrition Risks: No Nutritional Risk service: No Current occupational status: employed 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
[2023-02-23 08:59] VITALS: BMI 34.6
[2023-02-23 09:07] VITALS: BP 134/83; PULSE 77; RESP 16; TEMP 36.6; O2SAT 98
--- NOTE | 2023-02-23 09:13 | MHC.SHP ---
Pre-Procedural Eval Section A Date of Service: 02/23/23 The patient is an INPATIENT: No The History & Physical has been completed within 30 days and I have reviewed it.: No Section B Chief Complaint: screening, history of colon polyps Relevant Family History (Specify if Yes): No Relevant Social History: Tobacco Use (Formal smoker) Present Medications: see Short Stay Collaborative assessment Medical History: Significant History (Avascular necrosis of right humeral head Bilateral carpal tunnel syndrome Epidermal inclusion cyst GERD (gastroesophageal reflux disease) Hip pain, right Hx of diverticulitis of colon Hx of tendinitis Hypercholesterolemia Hypertension Knee pain, left Lumbar degenerative disc disease Obesity (BMI 30-) History of Previous Operations: Relevant previous surgery/procedure and date(s) (Hx of abdominoplasty Hx of cholecystectomy Hx of colonoscopy Hx of rotator cuff surgery Hx of tubal ligation Varicose veins of right lower extremity) Allergies: Allergies Allergy/AdvReac Type Severity Reaction Status Date / Time No Known Allergies Allergy Verified 01/01/23 09:25 [No Known Allergies*] Review of Systems Sugical H&P ROS: Negative: Constitution, Cardiovascular, Respiratory and Gastrointestinal Exam Surgical H&P Exam: Normal: Heart, Normal: Lungs, Normal: Extremities and Normal: Abdomen Plan Diagnosis/Plan: Unchanged I have reviewed the history and physical and performed a pertinent physical examination on my patient. No changes have occurred unless specified. Time Spent With Patient Time: Total time managing care of this patient today ____ minutes.
[2023-02-23] MEDS: Lactated Ringers 1,000 ML 100 ML IVCONT (09:28)
--- NOTE | 2023-02-23 10:18 | W.PM.OPN ---
Operative Note Operative Note Date of Service: 02/23/23 Narrative: COLONOSCOPY TILL CECUM WITH BIOPSIES AND SNARE POLYYPECTOMY Pre-op diagnosis: Colon cancer screening, history of colon polyps Post-op diagnosis:? Colon polyps, diverticulosis, hemorrhoids Endoscopist:? Baldemar Garcia MD Anesthesia:?MAC Consent: Indications for the procedure and potential complications of bleeding, perforation, reaction to medications and missed diagnosis were discussed with the patient and informed consent was obtained. Instrument: Olympus PCF H 190 L variable stiffness pediatric colonoscope Monitoring: Vital signs and clinical assessment, intermittent blood pressure monitoring, continuous EKG monitoring, Pulse oximetry and Carbon Dioxide monitoring were done throughout the procedure. Please see anesthesia flowsheet. Colon withdrawl time was 25 minutes. Procedure: The patient was placed in the left lateral decubitis position and pre-procedure medications were administered. After a digital rectal examination of the ano-rectum, the video colonoscope was inserted into the rectum and advanced through the colon to the cecum. The colonoscope was slowly withdrawn in a retrograde panoramic fashion and the colon mucosa was carefully examined including a retroflexed view of the rectum. Findings and interventions are described below. Procedure Difficulty: Without difficulty Findings: Terminal Ileum: Not evaluated Cecum: A 7-8 mm sessile polyp - removed with a cold snare Ascending Colon: Normal Transverse Colon: Normal Descending Colon: Moderate diverticulosis Sigmoid Colon: A 12-15 mm polyp versus inverted diverticulum - biopsied. Moderate diverticulosis Rectum: Normal Ano-rectum: Small internal hemorrhoids Colon preparation: Excellent. Colon exam was suboptimal in the left colon due to excessive spasm. Impression and Post Procedure Diagnosis: Colonoscopy Findings: One small polyp removed A 12-15 mm polyp versus inverted diverticulum - biopsied. Moderate diverticulosis seen in the left colon Small hemorrhoids on retroflexed exam. Plan: Await pathology results Patient has an appointment on 03/04/23 in the [facility] with LIBERTAD Brandon. Repeat Colonoscopy interval based on path results - in 3-5 years if polyps are adenomatous and 10 years if polyps are hyperplastic. Above findings were reviewed with the patient and colon polyps and diverticulosis handouts were given in the discharge area
[2023-02-23 11:08] VITALS: BP 106/55; PULSE 91; RESP 16; TEMP 36.1; O2SAT 95
[2023-02-23 11:23] VITALS: BP 116/68; PULSE 68; RESP 18; O2SAT 96
[2023-02-23 11:37] VITALS: BP 116/68; PULSE 71; RESP 18; TEMP 36.1; O2SAT 96
== END 2023-02-23 12:53 | disposition home or self-care (01) ==
PROVIDERS: PCP Internal Medicine; Visit Provider Internal Medicine Gastroenterology
PROC: 0DJD8ZZ Inspection of Lower Intestinal Tract, Via Natural or Artificial Opening Endoscopic (ICD-10-PCS; CPT 45378; principal; 2023-02-23 10:10)
DX: Z12.11 Encounter for screening for malignant neoplasm of colon (principal); Z86.010 Personal history of colon polyps; D12.0 Benign neoplasm of cecum; K63.5 Polyp of colon; K57.30 Diverticulosis of large intestine without perforation or abscess without bleeding; K64.8 Other hemorrhoids; Z87.891 Personal history of nicotine dependence; K21.9 Gastro-esophageal reflux disease without esophagitis; D64.9 Anemia, unspecified; I10 Essential (primary) hypertension; E78.00 Pure hypercholesterolemia, unspecified; E55.9 Vitamin D deficiency, unspecified; Z79.899 Other long term (current) drug therapy; Z90.49 Acquired absence of other specified parts of digestive tract; K59.09 Other constipation
CPT/HCPCS: 45385; 45380; 88305; J2250

== ENCOUNTER → 2023-02-23 08:33 | Outpatient (BNV) | payer OTHER, SELFPAY | PROVIDERS: PCP Internal Medicine; Visit Provider Internal Medicine Gastroenterology | DX: K63.5 Polyp of colon (principal) | CPT/HCPCS: 45380; 45385 ==

== ENCOUNTER 2023-04-13 07:21 | Outpatient (REF) | payer OTHER, SELFPAY ==
--- NOTE | ~2023-04-13 | MR_ITS ---
EXAMINATION: MR KNEE WITHOUT CONTRAST, LEFT CLINICAL INFORMATION: Left knee pain and swelling. Medial and anterior pain. COMPARISON: Multiple priors, most recent knee radiographs dated 01/15/2023. TECHNIQUE: MRI of the knee without contrast was performed using routine sequences on a high-field scanner. FINDINGS: MENISCI: Medial Meniscus: Nondisplaced oblique inner margin/tibial articular surface tear of the posterior body extending through the posterior horn with increased T2 signal within the intrasubstance of the posterior root. Lateral Meniscus: Mild inner margin fraying of the posterior root. LIGAMENTS: Cruciate: Intact Collateral: Intact EXTENSOR MECHANISM: Suprapatellar enthesophytes. Intact quadriceps and patellar tendons. Normal patellofemoral alignment. ARTICULAR CARTILAGE/BONE: Patellofemoral Compartment: Patellar median ridge and medial patellar facet articular cartilage thinning with areas of full-thickness loss. Tiny marginal osteophytes. Medial Compartment: Weight-bearing articular cartilage signal heterogeneity and surface irregularity with marginal osteophytes. Lateral Compartment: Articular cartilage signal heterogeneity with tiny marginal osteophytes. JOINT FLUID AND BURSAE: Trace joint effusion. Anterior ossified loose body measuring up to 1.2 cm. MR/MR knee LT wo con IMPRESSION: 1. Nondisplaced oblique inner margin/tibial articular surface tear of the medial meniscus posterior body extending through the posterior horn with intrasubstance degenerative signal within the posterior root. 2. Mild inner margin fraying of the lateral meniscus posterior root. 3. Mild tricompartmental osteoarthritis. Trace joint effusion. Anterior ossified loose body measuring up to 1.2 cm.
== END 2023-04-13 07:22 | disposition home or self-care (01) ==
LOC: HO.MRI 07:21
PROVIDERS: PCP Internal Medicine; Visit Provider Orthopaedic Surgery
DX: M23.92 Unspecified internal derangement of left knee (principal)
CPT/HCPCS: 73721

== ENCOUNTER 2023-04-29 13:16 | Outpatient (AMB) | payer OTHER, SELFPAY ==
--- NOTE | 2023-04-29 11:02 | MHC.OFFVIS ---
Intake Vital Signs 04/29/23 13:46 Height 5 ft 3.5 in Weight 180 lb BMI 31.4 Intake Visit Reasons: ov- INTERNAL DERANGEMENT left knee Intake Note: Dariana is a 52 year old female who presents today for an MRI review of her left knee. She reports that her pain has gotten wrose. Allergies No Known Allergies [No Known Allergies*] Allergy (Verified 05/03/23 08:57) HPI ov- INTERNAL DERANGEMENT left knee HPI Details Dariana is a 52 year old woman returning for an MRI review of her left knee. She has bilateral knee OA She continues to have pain with daily activity, worse with using stairs, walking, and standing from a seated position. She found [ ] relief from her injection on 01/15/23. She is still limited in her ability to walk >10 minutes. She complains of increased pain in her left knee with twisting activities and at night. She has a Hx of right knee in 2020. She finds some relief from Tramadol, lidocaine patches, and bracing. She says steroid injections only give her short term relief. [facility] Medical History Heart murmur Requires management of nerve block infusion Facial dermatitis Breast pain, right Epidermal inclusion cyst Knee pain, left Obesity (BMI 30-39.9) Hip pain, right Rotator cuff disorder Hypercholesterolemia Lumbar degenerative disc disease Anemia Vitamin D deficiency GERD (gastroesophageal reflux disease) Hypertension Bilateral carpal tunnel syndrome Primary osteoarthritis of hands, 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 Maternal Grandmother History of asthma Paternal Grandfather No problems noted. 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 Cognitive needs: No Hearing needs: No Vision needs: Yes Female Reproductive History Menstrual Age of Menarche: 15 Review of Systems Const All systems reviewed & are unremarkable except as noted in HPI and below Physical Exam Vital Signs: BMI result Body Mass Index 31.4 Const General: no acute distress and alert Orientation/consciousness: patient oriented x3 HEENT Head: Yes normocephalic and Yes atraumatic Eyes EOM: EOMs intact bilaterally Resp Effort & Inspection: normal respiratory effort and able to speak in complete sentences Cardio Jugular venous distension: no JVD Skin General skin exam: turgor normal Rashes: no rashes Neuro General: patient oriented x3 Extrem Other: Left Knee: TTP medial joint line + medial Steinmans Right Knee: Crepitus Retropatellar TTP Psych Appearance: grossly normal Affect: normal affect Attitude: cooperative Results Reviewed Results Reviewed: I personally reviewed relevant radiographs & MR images Severe right and moderate left PF OA 1. Nondisplaced oblique inner margin/tibial articular surface tear of the medial meniscus posterior body extending through the posterior horn with intrasubstance degenerative signal within the posterior root. 2. Mild inner margin fraying of the lateral meniscus posterior root. 3. Mild tricompartmental osteoarthritis. Trace joint effusion. Anterior ossified loose body measuring up to 1.2 cm. Assessment & Plan Assessment & Plan (1) Tear of medial meniscus of left knee: Code(s): S83.242A - Other tear of medial meniscus, current injury, left knee, initial encounter Plan: This is a 52 year old woman with left knee MMT in a setting of PF OA. She has pain with daily activity, worse pain with twisting activities, using stairs, or standing from a seated position. She is improving however and much better than at last visit. I reviewed her MRI results with her and don't recommend treatment at this time. If she does not improve completely she will let me know. (2) Osteoarthritis of knees, bilateral: Code(s): M17.0 - Bilateral primary osteoarthritis of knee Plan: Bilateral knee OA with a Hx of right knee with partial medial meniscectomy, DOS: 05/27/21. Coding Level of Care Code Est Pt Level 4 (02275) Diagnoses Tear of medial meniscus of left knee S83.242A Osteoarthritis of knees, bilateral M17.0
[2023-04-29 13:46] VITALS: BMI 31.4
== END 2023-04-29 14:06 | disposition home or self-care (01) ==
PROVIDERS: PCP Internal Medicine; Visit Provider Orthopaedic Surgery
DX: S83.242A Other tear of medial meniscus, current injury, left knee, initial encounter (principal); M17.0 Bilateral primary osteoarthritis of knee
CPT/HCPCS: 99213

== ENCOUNTER → 2023-04-29 13:16 | Outpatient (BNVA) | payer OTHER, SELFPAY | PROVIDERS: PCP Internal Medicine; Visit Provider Orthopaedic Surgery ==

== ENCOUNTER 2023-05-03 08:47 | Outpatient (AMB) | payer OTHER, SELFPAY ==
--- NOTE | 2023-05-03 08:54 | MHC.PC.OV ---
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 Allergies No Known Allergies [No Known Allergies*] Allergy (Verified 05/03/23 08:57) Medication List - Last Reconciled 05/03/23 by Mian Haynes MD buspirone 7.5 mg PO BID 90 days cholecalciferol (vitamin D3) 50 mcg PO DAILY 90 days docusate sodium 200 mg (2 x 100 mg) PO DAILY PRN Donut pillow As directed gabapentin 300 mg PO TID 30 days hydrochlorothiazide 25 mg PO QAM leg brace (Knee Support Brace) [id number] knee support lidocaine 5% 1 patch topical DAILY PRN lorazepam 1 mg PO BID PRN 90 days methylcellulose (laxative) (Citrucel) 500 mg PO BID omeprazole 40 mg (2 x 20 mg) PO DAILY sertraline 100 mg PO DAILY tramadol 50 mg PO Q8H PRN 30 days Tobacco use date assessed: 05/03/23 Dental Screening Dental Screen Date: 05/03/23 Did you have a dental visit in the last 12 months?: No Did you have a dental problem in the last 6 months where you did not have access to dental care?: No HPI Annual Exam HPI Details 52-year-old obese female with hypertension coming in for follow-up. Last seen in December 2022 had a right knee arthritis MRI requested. Mammogram is up-to-date. Patient just had colonoscopy February 2023 had tubular adenoma. For the right knee MRI done showing nondisplaced oblique inner margin/tibial articular surface tear of the medial meniscus posterior body extending through the posterior horn with intrasubstance degenerative signal within the posterior root. Mild tricompartmental osteoarthritis mild inner margin fraying of the lateral meniscus posterior root. Patient is being followed up by orthopedics. Patient is here for physical exam. nausea in am-tums [facility] Medical History Heart murmur Requires management of nerve block infusion Facial dermatitis Breast pain, right Epidermal inclusion cyst Knee pain, left Obesity (BMI 30-39.9) Hip pain, right Rotator cuff disorder Hypercholesterolemia Lumbar degenerative disc disease Anemia Vitamin D deficiency GERD (gastroesophageal reflux disease) Hypertension Bilateral carpal tunnel syndrome Primary osteoarthritis of hands, 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 Maternal Grandmother History of asthma Paternal Grandfather No problems noted. 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 1. Little interest or pleasure in doing things: several days 2. Feeling down, depressed, or hopeless: several days 3. Trouble falling or staying asleep, or sleeping too much: several days 4. Feeling tired or having little energy: several days 5. Poor appetite or overeating: several days 6. Feeling bad about yourself - or that you are a failure or have let yourself or your family down: not at all 7. Trouble concentrating on things, such as reading the newspaper or watching television: several days 8. Moving or speaking so slowly that other people could have noticed. Or the opposite - being so fidgety or restless that you have been moving around a lot more than usual: not at all 9. Thoughts that you would be better off or of hurting yourself in some way: not at all Total score: 6 Depression Screening Interpretation: Positive Source: Developed by Drs. Duane Oliveros, Junito Velez and colleagues, with an educational preeti from [employer]. Thrive Questionnaire Date Thrive assessed: 01/01/23 I am a: Patient What is your living situation today?: I have a steady place to live Within the past 12 months, did the food you bought not last and you didn't have the money to get more?: Never true Within the past 12 months, did you worry whether your food would run out before you got money to buy more?: Never true Do you have trouble paying for medicines?: No Do you have trouble getting transportation to medical appointments?: No Do you have trouble paying your heating and electricity bill?: No Do you have trouble taking care of your child, family member or friend?: No Do you have trouble with day-to-day activities such as bathing, preparing meals, shopping, managing finances, etc.?: No Are you currently unemployed and looking for a job?: No Are you interested in more education?: No Currently or been in a relationship where the following occur: no concerns reported AUDIT C Alcohol Use Questionnaire (AUDIT-C) 1. How often do you have a drink containing alcohol?: Never Total Score: 0 Score Reviewed/Action Taken: No GILSON-7 AMB Questionnaire GILSON-7 Date GILSON - 7 assessed: 01/01/23 Feeling nervous, anxious, or on edge: 1 = Several days Not being able to stop or control worryin = Several days Worrying too much about different things: 1 = Several days Trouble relaxin = Several days Being so restless that it is hard to sit still: 1 = Several days Becoming easily annoyed or irritable: 1 = Several days Feeling afraid as if something awful might happen: 1 = Several days Total GILSON-7 score (0-4 normal; 5-9 mild; 10-14 moderate; 15-21 severe): 7 Source: Developed by Drs. Duane Oliveros, Junito Velez and colleagues, with an educational preeti from [employer]. GILSON-7 Assessment Billing GILSON-7 Assessment Tool: GILSON-7 Assessment 45289 Review of Systems Const Denies poor appetite and Denies weakness Eyes Denies no additional complaints ENT Reports Normal hearing present, Denies dizziness, Denies nasal congestion, Denies tinnitus and Denies sore throat Card Denies chest pain, Denies syncope, Denies rapid heart rate and Denies dyspnea Resp Denies cough and Denies dyspnea GI Denies change in stool character, Reports constipation, Denies diarrhea, Denies nausea and Denies vomiting Denies urinary frequency, Denies difficulty voiding and Denies dysuria Neuro Reports Normal hearing present, Denies confusion, Denies dizziness, Denies syncope and Denies weakness Psych Denies confusion Physical exam (Primary Care) Vital Signs: Last Vital Signs Pulse 72 05/03/23 08:55 BP 128/82 05/03/23 08:55 Pulse Ox 100 05/03/23 08:55 Oxygen Delivery Method Room Air 05/03/23 08:55 BMI result Body Mass Index 34.7 Tobacco/Smoking Status: Tobacco use Status Tobacco use date assessed 05/03/23 05/03/23 08:59 Patient Tobacco Use Status Former Tobacco user 05/03/23 08:59 Tobacco use type Cigarette 05/03/23 08:59 e-Cigarette/Vaping Use Former Use 05/03/23 08:59 PHQ-9: PHQ-9 Score PHQ-9: Total score 6 05/03/23 08:59 Depression Screening Interpretation: Positive Thrive Assessment: Date of Thrive Assessment Date Thrive assessed 01/01/23 05/03/23 08:59 Currently or been in a relationship where the following occur: no concerns reported Const General: No confusion Orientation/consciousness: No confusion HENMT Head: Yes normocephalic Ears: external ears normal and TM's normal bilaterally Face and sinus: Yes normal facial exam Mouth: moist mucous membranes Throat: Yes tonsils normal Eyes Conjunctivae: conjunctivae normal Pupils: Equal, round and reactive pupils present and Pupil accommodation reflex normal Direct Ophthalmoscopy: normal light reflex Neck Neck: No lymphadenopathy Thyroid: Thyroid normal Chest Chest palpation & inspection: normal inspection of the chest Resp Effort & Inspection: normal respiratory effort and no audible wheezes Auscultation: clear to auscultation bilaterally, no crackles, no wheezes and lung sounds not diminished Cardio Rate: regular rate Rhythm: regular rhythm Peripheral pulses: radial pulses present and dorsalis pedis present GI Palpation (GI): no masses Auscultation: normal bowel sounds and normoactive bowel sounds Rectal Exam - Female: deferred Skin General skin exam: no rashes or lesions noted Rashes: no rashes Neuro General: No confusion Cranial nerves: Yes Equal, round and reactive pupils present and Yes Normal hearing present Cognition (Neuro): normal cognition Gait exam (Neuro): Normal gait present Motor exam (neuro): 5/5 motor strength present throughout Deep tendon reflexes (DTR's): Right brachioradialis reflex intensity grade: 2+, Left brachioradialis reflex intensity grade: 2+, Right patellar reflex intensity grade: 2+ and Left patellar reflex intensity grade: 2+ Extrem General: No edema Assessment and Plan Assessment & Plan (1) Annual physical exam: Code(s): Z00.00 - Encounter for general adult medical examination without abnormal findings (2) Obesity (BMI 30-39.9): Code(s): E66.9 - Obesity, unspecified Plan: Diet and exercise (3) Hypercholesterolemia: Code(s): E78.00 - Pure hypercholesterolemia, unspecified Plan: Avoid fried foods, chicken skin, eggs, butter margarine, pastries and meat. Be it pork or beef they have a lot of cholesterol LDL goal of less than 130 and triglyceride of less than 150 (4) GERD (gastroesophageal reflux disease): Comment: Avoid culprits, remain upright 2-3 hours after eating, continue PPI month Avoid further weight gain Code(s): K21.9 - Gastro-esophageal reflux disease without esophagitis Qualifiers: Esophagitis presence: without esophagitis Qualified Code(s): K21.9 - Gastro-esophageal reflux disease without esophagitis Plan: Avoid the foods that causes that usually spicy foods, tomato products, juices, coffee, soda and foods that your sensitive to. After eating do not lie down, allow 3-4 hours before in lie down. And keep the head of bed above 30 degrees to avoid the acid from going up. (5) Hypertension: Code(s): I10 - Essential (primary) hypertension Qualifiers: Hypertension type: essential hypertension Qualified Code(s): I10 - Essential (primary) hypertension Plan: Continue with blood pressure medication. Decrease salt intake and exercise patient is on hydrochlorothiazide 25 mg once a day (6) Tear of medial meniscus of left knee: Code(s): S83.242A - Other tear of medial meniscus, current injury, left knee, initial encounter Plan: planned surgery Dr. Gandara May 12, 2023 Orders: Orders Comprehensive Met. Panel Today E78.00 - Pure hypercholesterolemia, unspecified Vitamin B12 and Folate Today E78.00 - Pure hypercholesterolemia, unspecified Complete Blood Count Auto Diff Today E78.00 - Pure hypercholesterolemia, unspecified Lipid Panel Today E78.00 - Pure hypercholesterolemia, unspecified Thyroid Stimulating Hormone Today E78.00 - Pure hypercholesterolemia, unspecified Free T4 (Free Thyroxine) Today E78.00 - Pure hypercholesterolemia, unspecified Vitamin D 25-OH Total Today E78.00 - Pure hypercholesterolemia, unspecified ECG 12 lead EKG Today I10 - Essential (primary) hypertension Coding Level of Care Code Est Pt Prev Care 40-64y(00902) Diagnoses Annual physical exam Z00.00 Obesity (BMI 30-39.9) E66.9 Hypercholesterolemia E78.00 Gastroesophageal reflux disease without esophagitis K21.9 Esophagitis presence: without esophagitis Essential hypertension I10 Hypertension type: essential hypertension Tear of medial meniscus of left knee S83.242A Additional Codes GILSON-7 Assessment Billing - GILSON-7 Assessment Tool: GILSON-7 Assessment 60164 ([id number]) PHQ-9 - 75279 - PHQ-9 Billing: ([id number])
[2023-05-03 08:55] VITALS: BP 128/82; PULSE 72; O2SAT 100; BMI 34.7
== END 2023-05-03 09:24 | disposition home or self-care (01) ==
PROVIDERS: Visit Provider Internal Medicine
DX: Z00.00 Encounter for general adult medical examination without abnormal findings (principal); K21.9 Gastro-esophageal reflux disease without esophagitis; I10 Essential (primary) hypertension; Z68.34 Body mass index [BMI] 34.0-34.9, adult; E66.9 Obesity, unspecified; S83.242A Other tear of medial meniscus, current injury, left knee, initial encounter; E78.00 Pure hypercholesterolemia, unspecified
CPT/HCPCS: 99396

== ENCOUNTER 2023-05-08 08:49 | Outpatient (REF) | payer OTHER, SELFPAY ==
[2023-05-08 09:09] LABS: MANUAL DIFF FLAG NO
[2023-05-08 09:43] LABS: Basophils Percent Auto 0.2 % (0-2); Eosinophils Absolute Auto 0.2 X10*3/uL (0.0-0.4); Hematocrit 37.9 % (37.0-47.0); Hemoglobin 12.3 g/dl (12.0-16.0); Imm Gran Abs Auto 0.02 X10*3/uL (0.00-0.03); Imm Gran Pct Auto 0.2 % (0.0-0.4); Lymphocytes Absolute Auto 2.3 X10*3/uL (1.2-4.9); Lymphocytes Percent Auto 27.7 % (20-40); Mean Corpuscular HGB Conc 32.5 g/dl (31.0-35.0); Mean Corpuscular Hemoglobin 27.9 pg (27.0-33.0); Mean Corpuscular Volume 85.9 fL (80.0-98.0); Monocytes Absolute Auto 0.5 X10*3/uL (0.1-1.2); Neutrophils Absolute Auto 5.3 x10*3/uL (2.0-8.3); Neutrophils Percent Auto 63.9 % (45-73); Platelet Count 331 X10*3/uL (160-400); Red Blood Count 4.41 X10*6/uL (4.20-5.50); Red Cell Distribution Width 13.8 % (11.0-16.0); White Blood Count 8.3 X10*3/uL (4.8-10.8)
[2023-05-08 10:30] LABS: Alanine Aminotransferase 43 U/L (0-31); Albumin Level 3.9 g/dL (3.5-5.0); Alkaline Phosphatase 98 U/L (39-117); Aspartate Amino Transferase 47 U/L (5-31); Bilirubin Total 0.5 mg/dL (0.0-1.0); Blood Urea Nitrogen 12 mg/dL (9-16); Calcium 9.2 mg/dL (8.4-10.2); Chloride 103 mmol/L (96-108); Cholesterol 238 mg/dL (<200); Estimated Glomerular Filt Rate > 60; Glucose Random 90 mg/dL (60-115); HDL Cholesterol 41 mg/dL (>40); LDL Cholesterol Calculated 148 mg/dL (<100); Potassium 3.5 mmol/L (3.3-5.1); Sodium 141 mmol/L (135-145); Total Protein 7.3 g/dL (6.5-8.0); Triglycerides 249 mg/dL (<150)
[2023-05-08 10:41] LABS: Anion Gap 12 (12-20)
[2023-05-08 10:47] LABS: Free T4 (Free Thyroxine) 0.78 ng/dL (0.71-1.85); Thyroid Stimulating Hormone 1.84 uIU/mL (0.32-4.0); Vitamin D 25-OH Total 35.3 ng/mL (>30)
[2023-05-08 10:53] LABS: Folate 12.3 ng/mL (> or = 4.0); Vitamin B12 783 pg/mL (200-900)
[2023-05-08 11:11] LABS: Carbon Dioxide 29 mmol/L (22-29)
== END 2023-05-08 08:50 | disposition home or self-care (01) ==
LOC: HO.LAB 08:49
PROVIDERS: PCP Internal Medicine; Visit Provider Internal Medicine
DX: E78.00 Pure hypercholesterolemia, unspecified (principal); E55.9 Vitamin D deficiency, unspecified
CPT/HCPCS: 36415; 80053; 80061; 82306; 82607; 82746; 84439; 84443; 85025

== ENCOUNTER 2023-05-12 08:00 | Day surgery (SDC) | payer OTHER, SELFPAY ==
[2023-05-10 08:36] VITALS: BMI 31.9
--- NOTE | 2023-05-11 09:29 | P.CONAN_ITS ---
Documented by User: Erna Pryor NP 05/11/23 09:31 HPI - Anesthesia Eval Consult details Narrative: 52yo F for Left Knee Arthroscopy s/p colo 02/2023 with [facility] Active Problems Active Problems: All Active Problems (Updated 05/08/23 @ 17:59 by Mian Haynes MD) LFTs abnormal (Acute) Tear of medial meniscus of left knee (Acute) Osteoarthritis of right knee (Acute) Sebaceous cyst (Acute) Knee pain, left (Acute) Trochanteric bursitis, right hip (Acute) Annual physical exam (Acute) Generalized anxiety disorder (Acute) Tear of medial meniscus of right knee (Acute) COVID-19 virus infection (Acute) Osteoarthritis of right knee (Acute) Weakness of right lower extremity (Acute) Lumbosacral spondylosis with radiculopathy (Acute) Fall (Acute) Coccyxdynia (Acute) Myofascial low back pain (Acute) Lump of skin (Acute) Traumatic hematoma of buttock (Acute) Colon cancer screening (Acute) History of adenomatous polyp of colon (Acute) Chronic constipation (Acute) Bilateral knee pain (Acute) Bilateral hand pain (Acute) Viral upper respiratory illness (Acute) TMJ dysfunction (Acute) Brain mass (Acute) Epidermoid cyst of brain (Acute) Dizziness (Acute) Osteoarthritis of knees, bilateral (Acute) Facial dermatitis (Acute) Internal derangement of left knee (Acute) Facial dermatitis (Acute) Breast pain, right (Acute) Vitamin D deficiency (Acute) Anemia (Acute) Knee pain, left (Acute) Lumbar degenerative disc disease (Acute) Epidermal inclusion cyst (Acute) Obesity (BMI 30-39.9) (Acute) Hypercholesterolemia (Acute) GERD (gastroesophageal reflux disease) (Acute) Hypertension (Acute) Bilateral carpal tunnel syndrome (Acute) Primary osteoarthritis of hands, bilateral (Acute) Avascular necrosis of right humeral head (Acute) Past Medical History Medical History Heart murmur Requires management of nerve block infusion Facial dermatitis Breast pain, right Epidermal inclusion cyst Knee pain, left Obesity (BMI 30-39.9) Hip pain, right Rotator cuff disorder Hypercholesterolemia Lumbar degenerative disc disease Anemia Vitamin D deficiency GERD (gastroesophageal reflux disease) Hypertension Bilateral carpal tunnel syndrome Primary osteoarthritis of hands, bilateral Avascular necrosis of right humeral head Hx of tendinitis Hx of diverticulitis of colon Family History Family History Father Hx of diabetes mellitus History of high cholesterol Mother Family hx of hypertension History of asthma Hx of heart disorder Brother Automobile accident Brother Suicide Family/Other No problems noted. Maternal Grandmother History of asthma Paternal Grandfather No problems noted. Daughter In good health Daughter In good health Daughter In good health Family history of problems with anesthesia: No Surgical History Surgical History History of removal of cyst Varicose veins of right lower extremity History of foot surgery Hx of rotator cuff surgery Hx of cholecystectomy Hx of abdominoplasty Hx of colonoscopy Hx of tubal ligation History of Problems with Anesthesia: No Social History Social History (Updated 05/03/23 @ 09:10 by Mian Haynes MD) Housing: House Alcohol intake: current Alcohol intake frequency: does not drink Patient Tobacco Use Status: Former Tobacco user Tobacco use type: Cigarette Years Smoked: stopped 1-2 cigarettes at a time > 2009 e-Cigarette/Vaping Use: Former Use Second Hand Smoke Exposure: No Use of substances other than those prescribed or required for medical reasons: Yes Substance Use Frequency: Occasionally Are you DNR?: No Advance Directives: No Advance Directives Information Provided: Yes Advance Directives on File: No service: No Current occupational status: employed 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 Rate : 087 BPM Atrial Rate : 087 BPM P-R Int : 126 ms QRS Dur : 088 ms QT Int : 384 ms P-R-T Axes : 024 -13 006 degrees QTc Int : 462 ms Normal sinus rhythm Minimal voltage criteria for LVH, may be normal variant ( R in aVL ) Borderline ECG When compared with ECG of 12-MAY-2021 10:22, No significant change was found Assessment and Plan Assessment Anesthesia Assessment: Chart Reviewed Final Anesthetic Review Family History of Problems with Anesthesia: No History of Problems with Anesthesia: No Documented by User: Emmett Rees MD 05/12/23 10:14 [facility] Past Medical History Medical History Heart murmur Requires management of nerve block infusion Facial dermatitis Breast pain, right Epidermal inclusion cyst Knee pain, left Obesity (BMI 30-39.9) Hip pain, right Rotator cuff disorder Hypercholesterolemia Lumbar degenerative disc disease Anemia Vitamin D deficiency GERD (gastroesophageal reflux disease) Hypertension Bilateral carpal tunnel syndrome Primary osteoarthritis of hands, bilateral Avascular necrosis of right humeral head Hx of tendinitis Hx of diverticulitis of colon Family History Family History Father Hx of diabetes mellitus History of high cholesterol Mother Family hx of hypertension History of asthma Hx of heart disorder Brother Automobile accident Brother Suicide Family/Other No problems noted. Maternal Grandmother History of asthma Paternal Grandfather No problems noted. Daughter In good health Daughter In good health Daughter In good health Surgical History Surgical History History of removal of cyst Varicose veins of right lower extremity History of foot surgery Hx of rotator cuff surgery Hx of cholecystectomy Hx of abdominoplasty Hx of colonoscopy Hx of tubal ligation Social History Social History (Updated 05/03/23 @ 09:10 by Mian Haynes MD) Housing: House Alcohol intake: current Alcohol intake frequency: does not drink Patient Tobacco Use Status: Former Tobacco user Tobacco use type: Cigarette Years Smoked: stopped 1-2 cigarettes at a time > 2009 e-Cigarette/Vaping Use: Former Use Second Hand Smoke Exposure: No Use of substances other than those prescribed or required for medical reasons: Yes Substance Use Frequency: Occasionally Are you DNR?: No Advance Directives: No Advance Directives Information Provided: Yes Advance Directives on File: No service: No Current occupational status: employed 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 and Plan Disposition: Standard PACU
[2023-05-12] VITALS (12 sets, daily range): BP systolic 97–138; BP diastolic 46–95; PULSE 73–93; RESP 16–20; TEMP 36.6–37.2; O2SAT 95–98
[2023-05-12] MEDS: Lactated Ringers 1,000 ML 100 ML IVCONT (08:32)
--- NOTE | 2023-05-12 11:13 | MHC.SHP ---
Pre-Procedural Eval Section A Date of Service: 05/12/23 The patient is an INPATIENT: No Changes since office visit: No Cold of Flu in the past 2 weeks, No New Medical Problems, No Changes in Medication and No Patient answered all questions The History & Physical has been completed within 30 days and I have reviewed it.: Yes Section B Chief Complaint: Other tear of medial meniscus, current injury, lef Allergies: Allergies Allergy/AdvReac Type Severity Reaction Status Date / Time No Known Allergies Allergy Verified 05/03/23 08:57 [No Known Allergies*] Plan I have reviewed the history and physical and performed a pertinent physical examination on my patient. No changes have occurred unless specified. Time Spent With Patient Time: Total time managing care of this patient today ____ minutes.
--- NOTE | 2023-05-12 12:16 | P.BOP_ITS ---
Brief Operative Note Date of Service: 05/12/23 Pre-op diagnosis: Right knee MMT Post-op diagnosis: other (1) Right knee MMT 2) Right knee PF OA 3) Right knee medial plica) Procedure: Partial medial meniscectomy and chondroplasty and plica resection Implants: none Surgeon: Edmund Mahmood MD Was an Employment Recruiter used for this Procedure?: No Estimated blood loss (mL): 5 Tourniquet time (min): 20 IV fluids (mL): 500 Condition: stable Disposition: PACU
[2023-05-12] MEDS: HYDROmorphone HCl 0.5 MG/0.5 ML SYRINGE 0.25 MG IVPUSH ×2 (13:11→13:32)
--- NOTE | 2023-08-25 07:45 | P.OP_ITS ---
Operative Note Operative Note Date of Service: 05/12/23 Narrative: Date of Service: 05/12/23 Pre-op diagnosis: Right knee MMT Post-op diagnosis: other (1) Right knee MMT 2) Right knee PF OA 3) Right knee medial plica) Procedure: Partial medial meniscectomy and chondroplasty and plica resection Implants: none Surgeon: Edmund Mahmood MD Was an Medical Laboratory Technologist used for this Procedure?: No Estimated blood loss (mL): 5 Tourniquet time (min): 20 IV fluids (mL): 500 Condition: stable Disposition: PACU Procedure in detail: Patient was brought to the operating room placed supine on the arthroscopic table and prepped and draped in standard sterile fashion. A time-out was called to identify proper site proper procedure proper surgeon and IV antibiotics per weight were administered. I began by exsanguinating the limb and insufflating tourniquet to 300 mm Hg. Then made a standard anterolateral stab incision. The knee was insufflated with water and 30 degree arthroscope was placed. There was grade 2 fibrillations of the patella and some scattered G3 changes of the trochlea. The suprapatellar pouch and the gutters were clean. There was an anteromedial plica that did appear to be irritating the medial aspect of the MFC. I descended into the medial compartment where I made my medial portal under direct visualization. I used a shaver to remove the plica. There was a radial tear of the posterior horn of the medial meniscus. The root was intact and there was grade 1 changes in the tibial plateau but minimal. I used a combination of biter shaver and cautery to remove unstable portions of the meniscus. Approximately 30% meniscal volume was removed. Once I was satisfied with this the ACL was examined and found to be intact and the lateral compartment also was without the need for intervention. I returned to the PFJ where I performed a chondroplasty of the trochlea and minimally of the patella. I then removed all instrumentation and closed the portals with skin glue. 25 mL of 2% Marcaine with epinephrine was injected into the joint and the surrounding soft tissues. Patient was then placed in sterile dressing extubated brought recovery room stable condition. There were no known complications.
== END 2023-05-12 14:39 | disposition home or self-care (01) ==
LOC: HO.SSS 08:01
PROVIDERS: PCP Internal Medicine; Visit Provider Orthopaedic Surgery
PROC: (CPT 29870; principal; 2023-05-12 10:20)
DX: S83.242A Other tear of medial meniscus, current injury, left knee, initial encounter (principal); X58.XXXA Exposure to other specified factors, initial encounter; Y93.9 Activity, unspecified; Y92.9 Unspecified place or not applicable; Y99.9 Unspecified external cause status; I10 Essential (primary) hypertension; E78.00 Pure hypercholesterolemia, unspecified; D64.9 Anemia, unspecified; Z87.891 Personal history of nicotine dependence; Z90.49 Acquired absence of other specified parts of digestive tract; Z98.51 Tubal ligation status
CPT/HCPCS: 29881; J0131; J0171; J0690; J1100; J1170; J1885; J2250; J2405; J2795; J3010

== ENCOUNTER → 2023-05-12 08:00 | Outpatient (BNV) | payer OTHER, SELFPAY | PROVIDERS: PCP Internal Medicine; Visit Provider Orthopaedic Surgery | DX: S83.241A Other tear of medial meniscus, current injury, right knee, initial encounter (principal) | CPT/HCPCS: 29881 ==

== ENCOUNTER → 2023-05-20 10:40 | Outpatient (BNVA) | payer OTHER, SELFPAY | PROVIDERS: PCP Internal Medicine; Visit Provider Physician Assistant ==

== ENCOUNTER 2023-06-08 08:09 | Outpatient (REF) | payer OTHER, SELFPAY ==
--- NOTE | ~2023-06-08 | US_ITS ---
EXAMINATION: US ABDOMEN COMPLETE CLINICAL INFORMATION: Other specified abnormal findings of blood chemistry. COMPARISON: CT abdomen and pelvis 05/28/2019. TECHNIQUE: Real-time imaging of the abdominal viscera. Exam somewhat limited by large midline scar. Portable and bowel gas. FINDINGS: PANCREAS: Limited visualization of pancreatic tail and head. Imaged portion of pancreatic body is unremarkable. ABDOMINAL AORTA: Limited visualization. INFERIOR VENA CAVA: Visualized portions are normal. LIVER: Hepatomegaly, 19.7 cm. Increased hepatic parenchymal heterogeneity and echogenicity which could be associated with hepatic steatosis or hepatocellular disease and substantially limits visualization. GALLBLADDER: Surgically absent. COMMON BILE DUCT: Normal in caliber measuring 0.6 cm in diameter. RIGHT KIDNEY: Medial midpole 0.9 cm cyst with benign features. There is no indication for follow up imaging. No hydronephrosis. Linear echogenic focus in the lower pole of the right kidney may represent calcified vessels versus less likely renal calculi. Limited visualization. The kidney measures 11.0 cm in maximum dimension. LEFT KIDNEY: No hydronephrosis. No renal calculi. Limited visualization. The kidney measures 11.8 cm in maximum dimension. SPLEEN: Normal. The spleen measures 11.2 cm in maximum dimension. FREE FLUID: None. US/US abdomen complete IMPRESSION: 1. Hepatomegaly, 19.7 cm. Increased hepatic parenchymal heterogeneity and echogenicity which could be associated with hepatic steatosis or hepatocellular disease and substantially limits visualization. 2. No hydronephrosis. Linear echogenic focus in the lower pole of the right kidney may represent calcified vessels versus less likely renal calculi.
--- NOTE | 2023-06-08 08:40 | ECG_ITS ---
Test Reason : htn Blood Pressure : / mmHG Vent. Rate : 066 BPM Atrial Rate : 066 BPM P-R Int : 130 ms QRS Dur : 090 ms QT Int : 428 ms P-R-T Axes : 011 -03 008 degrees QTc Int : 448 ms Normal sinus rhythm Normal ECG When compared with ECG of 04-SEP-2022 12:48, No significant change was found Heart rate has decreased Referred By: Mian Haynes Electronically Signed By:YANIV CRAWFORD MD
== END 2023-06-08 08:10 | disposition home or self-care (01) ==
LOC: HO.US 08:09
PROVIDERS: PCP Internal Medicine; Visit Provider Internal Medicine
DX: R79.89 Other specified abnormal findings of blood chemistry (principal); I10 Essential (primary) hypertension
CPT/HCPCS: 76700; 93005

== ENCOUNTER 2023-06-17 10:11 | Outpatient (AMB) | payer OTHER, SELFPAY ==
--- NOTE | 2023-06-17 10:17 | A.OFFVIS_ITS ---
Intake Intake Visit Reasons: PO LT knee 05/12/23NE Intake Note: Dariana is a 52 year old female who presents today for a 5 week post operative visit s/p left knee , DOS 05/12/23 NE. Patient reports that she is doing well, she is having increased pain after PT. Her pain is felt on the medial aspect of the knee. Allergies No Known Allergies [No Known Allergies*] Allergy (Verified 05/20/23 10:44) HPI PO LT knee 05/12/23NE HPI Details Dariana is a 53 year old woman ~5 weeks S/P right knee . She says she is doing well. She reports increased pain to the medial aspect of her knee following PT. She has been attending PT and modifying her activities. [facility] Medical History Heart murmur Requires management of nerve block infusion Facial dermatitis Breast pain, right Epidermal inclusion cyst Knee pain, left Obesity (BMI 30-39.9) Hip pain, right Rotator cuff disorder Hypercholesterolemia Lumbar degenerative disc disease Anemia Vitamin D deficiency GERD (gastroesophageal reflux disease) Hypertension Bilateral carpal tunnel syndrome Primary osteoarthritis of hands, 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 Maternal Grandmother History of asthma Paternal Grandfather No problems noted. 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 needs: No Hearing needs: No Vision needs: Yes Female Reproductive History Menstrual Age of Menarche: 15 Review of Systems Const All systems reviewed & are unremarkable except as noted in HPI and below Physical Exam Const General: no acute distress, alert and awake Orientation/consciousness: patient oriented x3 HEENT Head: Yes normocephalic and Yes atraumatic Eyes EOM: EOMs intact bilaterally Resp Effort & Inspection: normal respiratory effort and able to speak in complete sentences Cardio Jugular venous distension: no JVD Skin General skin exam: turgor normal Rashes: no rashes Neuro General: patient oriented x3 Extrem Other: Right Knee: Well-healed portals Psych Appearance: grossly normal Affect: normal affect Attitude: cooperative Assessment & Plan Assessment & Plan (1) Status post arthroscopic partial medial meniscectomy of right knee: Code(s): Z98.890 - Other specified postprocedural states; Z87.828 - Personal history of other (healed) physical injury and trauma Plan: This is a 53 year old woman S/P right partial medial meniscectomy, chondroplasty, and plica resection, DOS: 05/12/23. She is doing well overall, has been attending PT . COnt strengthening and f/u 6 weeks (2) Osteoarthritis of right knee: Code(s): M17.11 - Unilateral primary osteoarthritis, right knee Coding Level of Care Code Global (32492) Diagnoses Status post arthroscopic partial medial meniscectomy of right knee Z98.890; Z87.828 Osteoarthritis of right knee M17.11
== END 2023-06-17 11:45 | disposition home or self-care (01) ==
PROVIDERS: PCP Internal Medicine; Visit Provider Orthopaedic Surgery
DX: Z98.890 Other specified postprocedural states (principal); Z87.828 Personal history of other (healed) physical injury and trauma; M17.11 Unilateral primary osteoarthritis, right knee
CPT/HCPCS: 99024

== ENCOUNTER → 2023-06-17 10:11 | Outpatient (BNVA) | payer OTHER, SELFPAY | PROVIDERS: PCP Internal Medicine; Visit Provider Orthopaedic Surgery ==

== ENCOUNTER 2023-06-23 09:00 | Outpatient (RCR) | payer OTHER, SELFPAY ==
--- NOTE | 2023-06-09 12:47 | MHC.PT.EP ---
[facility] [place] Office [place] Office [place] Office [address] Zee Harrison [address] [phone] F: [phone] F: [phone] F: [phone] F: [phone] Physical Therapy Plan of Care Date of Evaluation: 06/09/23 Date of Surgery: 05/12/23 Diagnosis: LEFT KNEE Partial medial meniscectomy and chondroplasty and plica resection-> PT FOR Gait training, ROM and quad strength. Assessment: 52 YO FEMALE REF TO PT S/P LEFT KNEE W MED MENISCECTOMY, CHONDROPLASTY, AND PLICA RESECTION ON 05/12/23. SHE HAS A H/O W MMT Rt KNEE APPROX 1-2 YRS AGO. 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 SHE PRESENTED FOR HER PT EVAL W/O ANY ASST DEVICES-> SHE RESIDES IN A 2 LEVEL HOME. THE Pt HAS Lt KNEE ROM DEFICITS, ALTERED GAIT MECH, STRENGTH DEFICITS, AND PAIN IN HER MEDIAL Lt KNEE/ LAT Lt PATELLA. SHE HAS DECR KHLOE TO STANDING, INCR WALKING, STAIR NAVIGATION, AND REGULAR DAILY TASKS. THE Pt IS MOTIVATED FOR HER POST-OP PT COURSE TO ADDRESS PAIN MGMT, DEV A HEP/ ADDRESS ROM AND STRENGTH, AND GRAD RESUME REG ADLs PER PROTOCOL. Frequency and Duration: The patient will be seen 2 x WK x 8 WKS Short Term Goals: *INITIATE HEP *DECR LEFT KNEE PAIN TO 2-3/10 *ACTIVATE Lt QUAD-> TERMINAL LEFT KNEE EXT *IMPROVE ROM Lt KNEE PER PROTOCOL *PSOAS AND CALF STRETCHING TO INCR GAIT MECHANICS Museum Registrar Goals: *Pt INDEP HEP AND SELF-SX MGMT TECHN *Pt INDEP W REG ADLs/ EXER ROUTINE REFLECTED WITH IMPROVED LEFI ( AT EVAL) *Lt LE STRENGTH INCR BY 1 GRADE *Pt DISPLAY EFFICIENT GAIT MECHANICS ON LEVEL GROUND AND STAIRS Treatment Plan: Modalities to reduce pain, spasms and effusion. Manual therapy to restore motion and function. Therapeutic exercise to improve strength and flexibility. Neuromuscular re-education for posture and balance. Therapeutic activities to return to functional activities of daily living. Electronically signed by: KORTNEY CERON PT Please sign and return to therapist. Thank you for your referral.
--- NOTE | 2023-08-12 10:45 | MHC.PT.DC ---
[facility] [place] [facility] [place] [facility] [place] Office [address] Zee Harrison [address] [phone] F: [phone] F: [phone] F: [phone] F: [phone] Physical Therapy Discharge Report Diagnosis: LEFT KNEE Partial medial meniscectomy and chondroplasty and plica resection-> PT FOR Gait training, ROM and quad strength. Date of Surgery: 05/12/23 Date of Evaluation: 06/09/23 Date of Discharge: 08/12/23 Treatments to Date: 3 Cancellations to Date: 4 No Shows to Date: 2 Discharge Status: Patient Elected to Stop Recommend MD Follow-up Visit Non-compliance Discharge Summary: THE Pt HAD POOR ATTENDANCE FOR SCHED POST-OP PT APPTS, SHE NOTED SHE EXACERBATED HER LEFT KNEE PAIN WITH A TWIST/ NEAR FALL SITUATION- THE Pt HAD INCR PAIN AND DECR FUNCT MOB KHLOE- AT HER LAST ATTENDED APPT, THE PLAYGROUND MONITOR EDUC Pt TO F/U W HER ORTHO/ MD- THE Pt HAS NOT RETURNED TO PT DESPITE ATTEMPTS TO REACH HER BY PHONE- SHE IS D/C THIS DATE DUE TO POOR COMPLIANCY W PT, SHE DID NOT MEET HER GOALS Electronically signed by: KORTNEY CERON,PT Please sign and return to therapist. Thank you for your referral.
== END 2023-08-12 10:45 | disposition home or self-care (01) ==
LOC: HO.PT 09:00
PROVIDERS: PCP Internal Medicine; Visit Provider Physician Assistant
DX: S83.242A Other tear of medial meniscus, current injury, left knee, initial encounter (principal)
CPT/HCPCS: 97162; 97530

== ENCOUNTER 2023-07-15 09:18 | Emergency (ER) | payer OTHER, SELFPAY ==
--- NOTE | ~2023-07-15 | XR_ITS ---
EXAMINATION: XR KNEE, LEFT CLINICAL INFORMATION: Left knee pain COMPARISON: None available. TECHNIQUE: Four views of the left knee. FINDINGS: There is mild loss of patellofemoral and medial compartment joint space. No periarticular spurring. There is no loose bodies. There is mild anterior superior patellar enthesophyte. No abnormal joint effusion seen. No acute fracture or dislocation. XR/XR knee LT 3V IMPRESSION: 1. Mild degenerative changes medial and patellofemoral compartment. No visible acute fracture or dislocation seen. 2. Mild anterior superior patellar enthesophyte.
[2023-07-15 09:40] VITALS: BP 143/82; PULSE 85; RESP 16; TEMP 36.1; O2SAT 95; BMI 35.1
--- NOTE | 2023-07-15 13:42 | ED_ITS ---
HPI - Extremity Problem General Chief complaint: Extremity Problem Stated complaint: Knee pain - knee surgery 2 months ago Time Seen by Provider: 07/15/23 13:39 Source: patient, RN notes reviewed and old records reviewed Mode of arrival: ambulatory History of Present Illness HPI Narrative: 53-year-old female with a past medical history anemia, GERD, HTN, OA, for meniscus to left knee s/p left knee arthroscopic partial medial meniscectomy on 05/12/23, complaining of acute on chronic left knee pain x10 days with acute twisting injury 1 week ago when prevent herself from falling. Denies direct injury/trauma. Reports difficulty/pain with ambulation. Denies numbness, tingling, weakness, fever. Denies taking anything for pain at present. Related Data Previous Rx's Medication Instructions Recorded leg brace (Knee Support Brace) #1 ea 06/28/20 Donut pillow #1 ea 10/10/21 methylcellulose (laxative) 500 mg 500 mg PO BID #60 tabs 05/12/22 tablet (Citrucel) lidocaine 5 % topical patch 1 patch topical DAILY PRN for pain 06/11/22 #30 patches gabapentin 300 mg capsule 300 mg PO TID for pain 30 days #90 07/20/22 caps cholecalciferol (vitamin D3) 50 50 mcg PO DAILY 90 days #90 tabs 09/15/22 mcg (2,000 unit) tablet hydrochlorothiazide 25 mg tablet 25 mg PO QAM #90 tabs 11/11/22 sertraline 100 mg tablet 100 mg PO DAILY #90 tabs 01/01/23 buspirone 7.5 mg tablet 7.5 mg PO BID 90 days #180 tabs 01/31/23 docusate sodium 100 mg capsule 200 mg (2 x 100 mg) PO DAILY PRN 01/31/23 constipation #180 caps lorazepam 1 mg tablet 1 mg PO BID PRN agitation 90 days 03/17/23 #180 tabs tramadol 50 mg tablet 50 mg PO Q8H PRN pain 30 days #90 03/29/23 tabs omeprazole 20 mg capsule,delayed 40 mg (2 x 20 mg) PO DAILY #180 04/01/23 release caps hydrocodone 5 mg-acetaminophen 325 1 tab PO BID PRN pain (scale score 10/ mg tablet 4-6) 7 days #14 tabs diclofenac sodium 1 % topical gel 2 g topical QID #100 grams 07/15/23 (Arthritis Pain (diclofenac)) ketorolac 10 mg tablet 10 mg PO TID PRN pain 5 days #15 07/15/23 tabs Allergies Allergy/AdvReac Type Severity Reaction Status Date / Time No Known Allergies Allergy Verified 05/20/23 10:44 [No Known Allergies*] Review of Systems Review of Systems: Constitutional: No Fever, No Chills ENT/Mouth: No Ear Pain, No Nasal Congestion, No Sinus Pain, No Hoarseness, No sore throat, No Rhinorrhea, No Swallowing Difficulty Cardiovascular: No Chest Pain, No SOB Respiratory: No Cough, No Sputum, No Wheezing Musculoskeletal: + joint pain, No Myalgias, + Joint Swelling Skin: No Skin Lesions, No rash Neuro: No Weakness, No Numbness, No Paresthesias Yes all other systems are reviewed and are negative Constitutional: Constitutional: Reports as per [facility] Past Medical History Attestation statement: The following information was validated with the patient. Source: old records reviewed Medical History Heart murmur Requires management of nerve block infusion Facial dermatitis Breast pain, right Epidermal inclusion cyst Knee pain, left Obesity (BMI 30-39.9) Hip pain, right Rotator cuff disorder Hypercholesterolemia Lumbar degenerative disc disease Anemia Vitamin D deficiency GERD (gastroesophageal reflux disease) Hypertension Bilateral carpal tunnel syndrome Primary osteoarthritis of hands, bilateral Avascular necrosis of right humeral head Hx of tendinitis Hx of diverticulitis of colon Surgical History History of removal of cyst Varicose veins of right lower extremity History of foot surgery Hx of rotator cuff surgery Hx of cholecystectomy Hx of abdominoplasty Hx of colonoscopy Hx of tubal ligation Family History Family History Father Hx of diabetes mellitus History of high cholesterol Mother Family hx of hypertension History of asthma Hx of heart disorder Brother Automobile accident Brother Suicide Family/Other No problems noted. Maternal Grandmother History of asthma Paternal Grandfather No problems noted. 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 Cognitive needs: No Hearing needs: No Vision needs: Yes Physical Exam Vital Signs: Vital Signs: Last Vital Signs Temp 97 F 07/15/23 09:40 Pulse 85 07/15/23 09:40 Resp 16 07/15/23 09:40 BP 143/82 H 07/15/23 09:40 Pulse Ox 95 07/15/23 09:40 O2 Del Method Room Air 07/15/23 09:40 BMI result Body Mass Index 35.1 Const: General: cooperative, healthy appearing and no acute distress Orientation/consciousness: patient oriented x3 Limitations: no limitations HEENT: Head: Yes normal to inspection and Yes atraumatic Ears: hearing grossly normal bilaterally General nose exam: Normal external nose present Face and sinus: Yes normal facial exam Eyes: General: appearance normal, both eyes and all related structures EOM: EOMs intact bilaterally Neck: Neck: Yes normal visual inspection and Yes no meningeal signs Resp: Effort & Inspection: normal respiratory effort and no respiratory distress Cardio: Rate: regular rate Skin: Rashes: no rashes Wounds: no wounds Neuro: General: patient oriented x3, tone normal and no meningeal signs Cranial nerves: Yes CN's II-XII intact bilaterally Gait exam (Neuro): Normal gait present Extrem: Other: Left knee with mild swelling. No erythema/warmth. Diffusely tender to p alpation > medial aspect. Limited flexion secondary to pain. Neurovascularly intact distally Course Course Course Narrative: XR knee LT 3V IMPRESSION: 1. Mild degenerative changes medial and patellofemoral compartment. No visible acute fracture or dislocation seen. 2. Mild anterior superior patellar enthesophyte. > Hipolito wrap applied for comfort/stability. Needs follow-up with orthopedics Results discussed with patient including worrisome signs and symptoms and strict return precautions, and when to return to the emergency department. They verbalized understanding and feel safe for discharge at this time. Medications Administered Discontinued Medications Generic Name Dose Route Start Last Admin Trade Name Freq PRN Reason Stop Dose Admin Ketorolac Tromethamine 30 mg 07/15/23 13:46 07/15/23 14:03 Ketorolac Tromethamine 30 Mg/Ml Vial IM 07/15/23 13:47 30 mg ONCE ONE Administration Medical Decision Making Medical Decision Making [facility] Narrative: 53-year-old female with a past medical history anemia, GERD, HTN, OA, for meniscus to left knee s/p left knee arthroscopic partial medial meniscectomy on 05/12/23, complaining of acute on chronic left knee pain x10 days with acute twisting injury 1 week ago when prevent herself from falling. On exam vital signs stable, NAD, nontoxic appearing, physical exam as noted above. Concern for soft tissue/meniscal/ligamental or tendon injury. Low suspicion for fracture, septic joint/arthritis plan: X-ray, IM Toradol, orthopedic/PCP follow-up Please refer to course for remaining clinical decision making, interpretation of labs/imaging results, and discussions with consultants and/or family members. Differential Diagnosis Differential Diagnoses: The differential diagnosis associated with the presentation includes As above Admission/Observation Consideration of admission/observation: Escalation of care including admission/observation considered Lab Data [facility] Lab Attestation statement: I reviewed the patient's lab results. Independent Interpretation I performed an independent interpretation of an: Plain X-Ray Radiology Impression Discussion of test interpretation with radiology: I have reviewed the radiologist's reading. External Record Review External record reviewed: Inpatient record, Office record, Outpatient record, Prior outpatient labs, Prior outpatient radiology, Primary care record and Outside ED record Tests considered The following testing was considered but not selected: As above Prescription Management I considered prescription management with: Pain Medication Discharge Plan Discharge Clinical Impression: Left knee pain Patient Disposition: Home, Self-Care Instructions: Knee Pain (ED) Additional Instructions: X-ray shows some degenerative changes/osteoarthritis. No fracture dislocation Wear Hipolito wrap for comfort and stability Toradol as an anti-inflammatory/pain medication, take with food Diclofenac as a topical anti-inflammatory/pain medication Follow-up with Orthopedics and your doctor Ice and elevate Prescriptions: New ketorolac 10 mg tablet 10 mg PO TID PRN (Reason: pain) 5 Days Qty: 15 0RF diclofenac sodium [Arthritis Pain (diclofenac)] 1 % gel 2 g topical QID Qty: 100 0RF Rx Instructions: apply to single elbow, wrist or hand; for hand includes palm/fingers/back of hand No Action gabapentin 300 mg capsule 300 mg PO TID 30 Days Qty: 90 3RF hydrochlorothiazide 25 mg tablet 25 mg PO QAM Qty: 90 2RF sertraline 100 mg tablet 100 mg PO DAILY Qty: 90 2RF docusate sodium 100 mg capsule 200 mg PO DAILY PRN (Reason: constipation) Qty: 180 3RF buspirone 7.5 mg tablet 7.5 mg PO BID 90 Days Qty: 180 1RF lorazepam 1 mg tablet 1 mg PO BID PRN (Reason: agitation) 90 Days Qty: 180 1RF tramadol 50 mg tablet 50 mg PO Q8H PRN (Reason: pain) 30 Days Qty: 90 2RF omeprazole 20 mg capsule,delayed release(DR/EC) 40 mg PO DAILY Qty: 180 3RF hydrocodone-acetaminophen 5-325 mg tablet 1 tab PO BID PRN (Reason: pain (scale score 4-6)) 7 Days Qty: 14 0RF Rx Instructions: Partial Fill upon patient request. cholecalciferol (vitamin D3) 50 mcg (2,000 unit) tablet 50 mcg PO DAILY 90 Days Qty: 90 3RF (DME) Knee Support Brace [facility] [place] See Rx Instructions .MEDSUPPLY Qty: 1 0RF Rx Instructions: [id number] knee support (DME) Donut pillow [facility] [place] See Rx Instructions .Route Qty: 1 0RF Rx Instructions: As directed Citrucel 500 mg tablet 500 mg PO BID Qty: 60 5RF lidocaine 5 % adhesive patch,medicated 1 patch topical DAILY PRN (Reason: for pain) Qty: 30 3RF Referrals: [facility] [Provider Group] Mian Haynes MD [Primary Care Provider] - 5 days Interventions: ED Discharge Assessment Last Done: 07/15/23 15:39 Discharge Date/Time: 07/15/23 15:39
[2023-07-15] MEDS: Ketorolac Tromethamine 30 MG/ML VIAL IM (14:03)
== END 2023-07-15 15:39 | disposition home or self-care (01) ==
PROVIDERS: Emergency Provider Emergency Medicine Emergency Medical Services; PCP Internal Medicine
DX: M25.562 Pain in left knee (principal); I10 Essential (primary) hypertension; E78.00 Pure hypercholesterolemia, unspecified; Z79.899 Other long term (current) drug therapy; Z87.891 Personal history of nicotine dependence
CPT/HCPCS: 73562; 96372; 99283; 99284; J1885

== ENCOUNTER 2023-07-22 09:40 | Outpatient (AMB) | payer OTHER, SELFPAY ==
--- NOTE | 2023-07-22 09:57 | MHC.OFFVIS ---
Intake Intake Visit Reasons: PO LT knee 05/12/23NE Intake Note: Dariana is a 52 year old female who presents today for a 5 week post operative visit s/p left knee , DOS 05/12/23 NE. She was recently seen at [facility] with right knee pain s/p twisting injury. She tripped over a dog and tried to stop from falling, she feels that she reinjured herself. Allergies No Known Allergies [No Known Allergies*] Allergy (Verified 07/22/23 12:41) HPI PO LT knee 05/12/23NE HPI Details Dariana is a 53 year old woman ~9 weeks S/P right knee . She complains of increased knee pain S/P twisting injury ~2 weeks ago. She says she tripped over a dog and tried to prevent falling. She is worried she may have re-injured her knee. She is having difficulty sleeping and pain in medial knee. She has been very active and admits that she is not resting. She was seen in the ED, given Toradol, Diclofenac, and told to RICE. [facility] Medical History Heart murmur Requires management of nerve block infusion Facial dermatitis Breast pain, right Epidermal inclusion cyst Knee pain, left Obesity (BMI 30-39.9) Hip pain, right Rotator cuff disorder Hypercholesterolemia Lumbar degenerative disc disease Anemia Vitamin D deficiency GERD (gastroesophageal reflux disease) Hypertension Bilateral carpal tunnel syndrome Primary osteoarthritis of hands, 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 Maternal Grandmother History of asthma Paternal Grandfather No problems noted. 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 needs: No Hearing needs: No Vision needs: Yes Female Reproductive History Menstrual Age of Menarche: 15 Review of Systems Const All systems reviewed & are unremarkable except as noted in HPI and below Physical Exam Const General: no acute distress, alert and awake Orientation/consciousness: patient oriented x3 HEENT Head: Yes normocephalic and Yes atraumatic Eyes EOM: EOMs intact bilaterally Resp Effort & Inspection: normal respiratory effort and able to speak in complete sentences Cardio Jugular venous distension: no JVD Skin General skin exam: turgor normal Rashes: no rashes Neuro General: patient oriented x3 Extrem Other: portals c/d/i mild effusion 0-130 Psych Appearance: grossly normal Affect: normal affect Attitude: cooperative Office Procedures Joint Injection/Drain Joint Injection/Drain Details: Injected 1 mL of Decadron and 3 mL 1% lidocaine and 3 mL of 0.25% Marcaine. Site was prepped using aseptic technique. Patient tolerated the procedure well. Primary Site: left knee Approach Used: anterolateral Coding - Large joint Procedure code (CPT) selection complete Assessment & Plan Assessment & Plan (1) Status post arthroscopic partial medial meniscectomy of right knee: Code(s): Z98.890 - Other specified postprocedural states; Z87.828 - Personal history of other (healed) physical injury and trauma Plan: Aggravated her knee. nsaids, injection and ice. I strongly encouraged her to rest. Plan Scribed for Edmund Mahmood MD by Pola Blas medical pathology teacher, on 07/22/23 at 10:10 AM, EST. Coding Level of Care Code Global (32421) Diagnoses Status post arthroscopic partial medial meniscectomy of right knee Z98.890; Z87.828 CPT Codes Coding - Large joint: 63862 - Large joint ([id number])
== END 2023-07-22 10:44 | disposition home or self-care (01) ==
PROVIDERS: PCP Internal Medicine; Visit Provider Orthopaedic Surgery
DX: Z98.890 Other specified postprocedural states (principal); Z87.828 Personal history of other (healed) physical injury and trauma
CPT/HCPCS: 20610; 99024

== ENCOUNTER → 2023-07-22 09:40 | Outpatient (BNVA) | payer OTHER, SELFPAY | PROVIDERS: PCP Internal Medicine; Visit Provider Orthopaedic Surgery | DX: K21.9 Gastro-esophageal reflux disease without esophagitis (principal); R79.89 Other specified abnormal findings of blood chemistry; M17.11 Unilateral primary osteoarthritis, right knee; M25.562 Pain in left knee; Z98.890 Other specified postprocedural states | CPT/HCPCS: 20610; J0665; J1100 ==

== ENCOUNTER 2023-07-22 12:26 | Outpatient (AMB) | payer OTHER, SELFPAY ==
--- NOTE | 2023-07-22 12:32 | MHC.OFFVIS ---
Intake Vital Signs 07/22/23 12:33 Weight 201 lb 8.04 oz BP 163/73 H Blood Pressure Location Lt brachial Pulse 72 Intake Visit Reasons: follow up Intake Note: Patient here to discuss liver testing. Tests ordered by PCP Dr. Haynes. Patient c/o: Acid reflux. Taking omeprazole 20mg 2 tabs daily. Allergies No Known Allergies [No Known Allergies*] Allergy (Verified 07/22/23 12:41) Medication List - Last Reconciled 07/22/23 by Fatimah Riley PA-C buspirone 7.5 mg PO BID 90 days cholecalciferol (vitamin D3) 50 mcg PO DAILY 90 days diclofenac sodium 1% (Arthritis Pain (diclofenac)) 2 grams topical QID docusate sodium 200 mg (2 x 100 mg) PO DAILY PRN Donut pillow As directed gabapentin 300 mg PO TID 30 days hydrochlorothiazide 25 mg PO QAM leg brace (Knee Support Brace) [id number] knee support lidocaine 5% 1 patch topical DAILY PRN lorazepam 1 mg PO BID PRN 90 days omeprazole 40 mg (2 x 20 mg) PO DAILY sertraline 100 mg PO DAILY tramadol 50 mg PO Q8H PRN 30 days HPI HPI Comments History of Present Illness Details A 53-year-old female seen previously for colon screening referred today with elevated liver enzymes and abnormal abdominal ultrasound. She has no GI or general complaints, other than,she just had cortisone injection- she was very anxious about having it done. She has a normal bowel pattern her appetite is good She does admit that she is overweight-she does not smoke or drink She has no nausea, vomiting, hematemesis, hematochezia fever or chills [facility] Medical History (Updated 07/25/23 @ 13:28 by Fatimah Riley PA-C) Heart murmur Requires management of nerve block infusion Facial dermatitis Breast pain, right Epidermal inclusion cyst Knee pain, left Obesity (BMI 30-39.9) Hip pain, right Rotator cuff disorder Hypercholesterolemia Lumbar degenerative disc disease Anemia Vitamin D deficiency GERD (gastroesophageal reflux disease) Hypertension Bilateral carpal tunnel syndrome Primary osteoarthritis of hands, 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 Maternal Grandmother History of asthma Paternal Grandfather No problems noted. 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 needs: No Hearing needs: No Vision needs: Yes Female Reproductive History Menstrual Age of Menarche: 15 Review of Systems Const All systems reviewed & are unremarkable except as noted in HPI and below Card Denies chest pain and Denies dyspnea Resp Denies dyspnea GI Denies abdominal pain and Denies change in bowel habits Musc Reports arthralgias Psych Reports anxiety Physical Exam Vital Signs: Last Vital Signs Pulse 72 07/22/23 12:33 BP 163/73 H 07/22/23 12:33 Eyes Sclerae: sclerae normal Resp Effort & Inspection: normal respiratory effort and able to speak in complete sentences Auscultation: clear to auscultation bilaterally Cardio Other: Murmur not appreciated Rate: regular rate Rhythm: regular rhythm Skin General skin exam: no rashes or lesions noted Extrem General: Yes full ROM Psych Appearance: grossly normal and well kempt Mental Status: mental status grossly normal Speech and movement: Normal speech and movement present Affect: normal affect Attitude: cooperative Thought process: Normal thought process present Thought content: Normal thought content present Insight: Good insight present (Psych) Judgement: Good judgement present (Psych) Results Reviewed Results Reviewed: US/US abdomen complete IMPRESSION: 1. Hepatomegaly, 19.7 cm. Increased hepatic parenchymal heterogeneity and echogenicity which could be associated with hepatic steatosis or hepatocellular disease and substantially limits visualization. 2. No hydronephrosis. Linear echogenic focus in the lower pole of the right kidney may represent calcified vessels versus less likely renal calculi. Findings: Terminal Ileum: Not evaluated Cecum: A 7-8 mm sessile polyp - removed with a cold snare Ascending Colon: Normal Transverse Colon: Normal Descending Colon: Moderate diverticulosis Sigmoid Colon: A 12-15 mm polyp versus inverted diverticulum - biopsied. Moderate diverticulosis Rectum: Normal Ano-rectum: Small internal hemorrhoids Colon preparation: Excellent. Colon exam was suboptimal in the left colon due to excessive spasm. Impression and Post Procedure Diagnosis: Colonoscopy Findings: One small polyp removed A 12-15 mm polyp versus inverted diverticulum - biopsied. Moderate diverticulosis seen in the left colon Small hemorrhoids on retroflexed exam. Plan: Await pathology results Patient has an appointment on 03/04/23 in the GI Clinic with LIBERTAD Brandon. Repeat Colonoscopy interval based on path results - in 3-5 years if polyps are adenomatous and 10 years if polyps are hyperplastic. Above findings were reviewed with the patient and colon polyps and diverticulosis handouts were given in the discharge area AST/ALT- 47/43 Assessment & Plan Assessment & Plan (1) LFTs abnormal: Comment: Reviewed labs mild elevation Elevated lipid panel Code(s): R79.89 - Other specified abnormal findings of blood chemistry Plan: Further labs rule underlying causes to include lipid panel (2) GERD (gastroesophageal reflux disease): Comment: Avoid culprits, remain upright 2-3 hours after eating, continue PPI month Avoid further weight gain Code(s): K21.9 - Gastro-esophageal reflux disease without esophagitis Qualifiers: Esophagitis presence: without esophagitis Qualified Code(s): K21.9 - Gastro-esophageal reflux disease without esophagitis (3) Osteoarthritis of right knee: Comment: Cortisone injection Code(s): M17.11 - Unilateral primary osteoarthritis, right knee Plan Recheck labs at [id number] Discuss lifestyle dietary changes Orders: Orders ZHOU Reflex Titer and Pattern 3 Months R74.01 - Elevation of levels of liver transaminase levels Mitochondrial Antibody 3 Months R74.01 - Elevation of levels of liver transaminase levels Smooth Muscle Antibody 3 Months R74.8 - Abnormal levels of other serum enzymes Lipid Panel 3 Months K76.0 - Fatty (change of) liver, not elsewhere classified Liver Fibrosis Pnl 3 Months R79.89 - Other specified abnormal findings of blood chemistry Hepatitis A,B,C Profile 3 Months R79.89 - Other specified abnormal findings of blood chemistry Patient Instructions: Very pleasant 53-year-old female seen previously by as for colon screening referred with elevated liver enzymes-may likely be NAFLD Reviewed labs, minimal elevation, discuss lifestyle and dietary changes Recommend avoidance of weight gain, good cholesterol and glucose control. Abstain from alcohol Opportunity for questions, answered to her satisfaction was present, with questions as well Encouraged to call with any concerns or further questions Coding Level of Care Code New Pt Level 3 (84812) Diagnoses LFTs abnormal R79.89 Gastroesophageal reflux disease without esophagitis K21.9 Esophagitis presence: without esophagitis Osteoarthritis of right knee M17.11
[2023-07-22 12:33] VITALS: BP 163/73; PULSE 72
== END 2023-07-22 13:15 | disposition home or self-care (01) ==
PROVIDERS: PCP Internal Medicine; Visit Provider Physician Assistant
DX: R74.01 Elevation of levels of liver transaminase levels (principal); K21.9 Gastro-esophageal reflux disease without esophagitis; M17.11 Unilateral primary osteoarthritis, right knee
CPT/HCPCS: 99213

== ENCOUNTER 2023-09-09 14:05 | Outpatient (AMB) | payer OTHER, SELFPAY ==
[2023-09-09 14:07] VITALS: BMI 35.1
--- NOTE | 2023-09-09 14:07 | MHC.OFFVIS ---
Intake Vital Signs 09/09/23 14:07 Height 5 ft 3 in Weight 198 lb BMI 35.1 Intake Visit Reasons: ov- S/p LT knee 05/12/23NE Intake Note: Dariana is a 52 year old female who presents today for a 5 week post operative visit s/p left knee , DOS 05/12/23 NE. She was recently seen at [facility] with right knee pain s/p twisting injury. Patient reports that she is having pain in the knee that is not improving , her pain feels worse at night but during the day she is unable to stand for prolonged periods of time. Allergies No Known Allergies [No Known Allergies*] Allergy (Verified 09/09/23 14:10) HPI ov- S/p LT knee 05/12/23NE HPI Details Dariana is a 53 year old woman ~4 months S/P right knee . She complains of worsening pain in her knee, after a twisting injury. She says her pain is worse at night but she has difficulty with WB because of her pain. SHe describes catching with pain anteromedially when she comes into extension,. [facility] Medical History Heart murmur Requires management of nerve block infusion Facial dermatitis Breast pain, right Epidermal inclusion cyst Knee pain, left Obesity (BMI 30-39.9) Hip pain, right Rotator cuff disorder Hypercholesterolemia Lumbar degenerative disc disease Anemia Vitamin D deficiency GERD (gastroesophageal reflux disease) Hypertension Bilateral carpal tunnel syndrome Primary osteoarthritis of hands, 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 Maternal Grandmother History of asthma Paternal Grandfather No problems noted. 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 needs: No Hearing needs: No Vision needs: Yes Female Reproductive History Menstrual Age of Menarche: 15 Review of Systems Const All systems reviewed & are unremarkable except as noted in HPI and below Physical Exam Vital Signs: BMI result Body Mass Index 35.1 Const General: no acute distress, alert and awake Orientation/consciousness: patient oriented x3 HEENT Head: Yes normocephalic and Yes atraumatic Eyes EOM: EOMs intact bilaterally Resp Effort & Inspection: normal respiratory effort and able to speak in complete sentences Cardio Jugular venous distension: no JVD Skin General skin exam: turgor normal Rashes: no rashes Neuro General: patient oriented x3 Extrem Other: There is a painful hard mass over the anteromedial joint line that is mobile. Her swelling has otherwise decreased when compared to prior. Psych Appearance: grossly normal Affect: normal affect Attitude: cooperative Assessment & Plan Assessment & Plan (1) Knee locking: Code(s): M23.90 - Unspecified internal derangement of unspecified knee Plan: MRI to assess Plan Prepared for Edmund Mahmood MD by Pola Blas, medical and health services manager, on 09/09/23 at 2:16 PM, EST. Orders: Orders MR knee LT wo con 09/09/23 M23.90 - Unspecified internal derangement of unspecified knee Coding Level of Care Code Global (06605) Diagnoses Knee locking M23.90
== END 2023-09-10 08:19 | disposition home or self-care (01) ==
PROVIDERS: PCP Internal Medicine; Visit Provider Orthopaedic Surgery
DX: S83.242A Other tear of medial meniscus, current injury, left knee, initial encounter (principal)
CPT/HCPCS: 99024

== ENCOUNTER → 2023-09-09 14:05 | Outpatient (BNVA) | payer OTHER, SELFPAY | PROVIDERS: PCP Internal Medicine; Visit Provider Orthopaedic Surgery ==

== ENCOUNTER 2023-09-09 19:00 | Outpatient (REF) | payer OTHER, SELFPAY ==
--- NOTE | ~2023-09-09 | MR_ITS ---
EXAMINATION: MR KNEE WITHOUT CONTRAST, LEFT CLINICAL INFORMATION: Internal derangement of knee. Patient describes left knee pain after tripping in late July 2023. Pain of medial knee. Patient reports having meniscal surgery 05/12/2023. COMPARISON: Radiographs of the left knee from 07/15/2023. MRI of the knee from 04/13/2023. TECHNIQUE: MRI of the knee without contrast was performed using routine sequences on a high-field scanner. FINDINGS: MENISCI: Medial Meniscus: Status post partial medial meniscectomy. The free edge of the posterior horn and meniscal body are truncated after the surgery. There is residual horizontal T2 signal hyperintensity within the jgnnsg-ko-awssxagcj third of the posterior horn and within the meniscal body. This signal contacts the free edge of the meniscus, including tibial surface of the meniscus in region of junction of body and posterior horn. Although imaging findings are suspicious for re-tear in the meniscus, there can be a false positive diagnosis of meniscus tear due to residual signal changes within a degenerated meniscus, and MR arthrography can provide clarification. Since there is a new area of mild bone bruising/edema in the subarticular tibial bone, the suspicion for a meniscus re-tear is elevated (images 15-16, series 5). Lateral Meniscus: Lateral meniscus has an intact appearance. LIGAMENTS: Cruciate: Anterior and posterior cruciate ligaments are normal. Collateral: At the medial knee, mild edema is present along the surface of the tibial collateral ligament; however, there is no discrete ligament tear. Findings consistent with grade 1 sprain. At the lateral knee, the iliotibial band, fibular collateral ligament, biceps femoris tendon and popliteus tendon are intact. EXTENSOR MECHANISM: The distal quadriceps tendon is intact. The patellar tendon, patellar retinacula, and Hoffa's fat pad are unremarkable. ARTICULAR CARTILAGE/BONE: Again noted is tricompartmental osteoarthritis. The articular cartilage loss is worst at the median ridge and medial facet of the patella where there are regions of full-thickness cartilage loss and marginal osteophyte formation. Mild signal heterogeneity of cartilage at tibiofemoral compartments with marginal osteophyte formation. JOINT FLUID AND BURSAE: Small amount of fluid is present in the joint. No Rodriguez's cyst. No intra-articular osteochondral body. MR/MR knee LT wo con IMPRESSION: * Tricompartmental osteoarthritis of the left knee remains similar in appearance compared to prior MRI from 04/13/2023. The articular cartilage degeneration is chronically worst at the patella. * Status post partial medial meniscectomy. The MR imaging findings are suspicious for a meniscus repair since horizontal signal contacts the meniscal free edge in the body and posterior horn. However, since conventional MRI can lead to a false positive diagnosis of re-tear, MR arthrography may be performed for clarification. * There is a grade 1 sprain of the medial collateral ligament. * There is a new small area of bone bruising of the medial tibia subjacent to the body of the medial meniscus.
== END 2023-09-09 19:01 | disposition home or self-care (01) ==
LOC: HO.MRI 19:00
PROVIDERS: PCP Internal Medicine; Visit Provider Orthopaedic Surgery
DX: M23.92 Unspecified internal derangement of left knee (principal); M25.462 Effusion, left knee; Z98.890 Other specified postprocedural states
CPT/HCPCS: 73721

== ENCOUNTER 2023-09-20 08:57 | Outpatient (AMB) | payer OTHER, SELFPAY ==
[2023-09-20 09:07] VITALS: BMI 35.1
--- NOTE | 2023-09-20 09:07 | MHC.OFFVIS ---
Intake Vital Signs 09/20/23 09:07 Height 5 ft 3 in Weight 198 lb BMI 35.1 Intake Visit Reasons: ov_ MRI Knee LT review Intake Note: Dariana is a 52 year old female who presents today for an MRI review of her left knee. S/p left knee , DOS 05/12/23 NE. She was [place] [facility] on 07/15/24 after a twisting injury. Allergies No Known Allergies [No Known Allergies*] Allergy (Verified 09/20/23 09:07) HPI ov_ MRI Knee LT review HPI Details Dariana is a 53 year old woman who returns for an MRI review for her left knee pain, S/p twisting injury on 07/15/23. She is ~4 1/2 months S/P right knee . She denies any changes in her symptoms. She has an extrememly painful nodule over the medial femoral condyle [facility] Medical History Heart murmur Requires management of nerve block infusion Facial dermatitis Breast pain, right Epidermal inclusion cyst Knee pain, left Obesity (BMI 30-39.9) Hip pain, right Rotator cuff disorder Hypercholesterolemia Lumbar degenerative disc disease Anemia Vitamin D deficiency GERD (gastroesophageal reflux disease) Hypertension Bilateral carpal tunnel syndrome Primary osteoarthritis of hands, 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 Maternal Grandmother History of asthma Paternal Grandfather No problems noted. 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 needs: No Hearing needs: No Vision needs: Yes Female Reproductive History Menstrual Age of Menarche: 15 Review of Systems Const All systems reviewed & are unremarkable except as noted in HPI and below Physical Exam Vital Signs: BMI result Body Mass Index 35.1 Const General: no acute distress, alert and awake Orientation/consciousness: patient oriented x3 HEENT Head: Yes normocephalic and Yes atraumatic Eyes EOM: EOMs intact bilaterally Resp Effort & Inspection: normal respiratory effort and able to speak in complete sentences Cardio Jugular venous distension: no JVD Skin General skin exam: turgor normal Rashes: no rashes Neuro General: patient oriented x3 Extrem Other: There is a mobile medial palpable nodule <1 cm over medial femoral condyle. No skin changes but it is clearly palpable and painful when she extends. Joint line in not tender and neg Steinmen's No effuson Psych Appearance: grossly normal Affect: normal affect Attitude: cooperative Results Reviewed Results Reviewed: I personally reviewed the MR images. Tricompartmental osteoarthritis of the left knee remains similar in appearance compared to prior MRI from 04/13/2023. The articular cartilage degeneration is chronically worst at the patella. * Status post partial medial meniscectomy. The MR imaging findings are suspicious for a meniscus repair since horizontal signal contacts the meniscal free edge in the body and posterior horn. However, since conventional MRI can lead to a false positive diagnosis of re-tear, MR arthrography may be performed for clarification. * There is a grade 1 sprain of the medial collateral ligament. * There is a new small area of bone bruising of the medial tibia subjacent to the body of the medial meniscus. Assessment & Plan Assessment & Plan (1) Loose body of right knee: Code(s): M23.41 - Loose body in knee, right knee Plan: Right knee loose body. I recommend removal with , possibly open as I cannot definitively say it is intra-articular. I discussed the risks benefits and alternatives including but not limited to the risk of pain, infection, stiffness, need for further surgery as well as potential medical complications. She expressed understanding. Plan Prepared for Edmund Mahmood MD by Pola Blas, medical detail representative, on 09/20/23 at 9:11 AM, EST. Coding Level of Care Code Est Pt Level 4 (89139) Diagnoses Loose body of right knee M23.41
== END 2023-09-20 10:26 | disposition home or self-care (01) ==
PROVIDERS: PCP Internal Medicine; Visit Provider Orthopaedic Surgery
DX: M23.41 Loose body in knee, right knee (principal)
CPT/HCPCS: 99214

== ENCOUNTER → 2023-09-20 08:57 | Outpatient (BNVA) | payer OTHER, SELFPAY | PROVIDERS: PCP Internal Medicine; Visit Provider Orthopaedic Surgery ==

== ENCOUNTER 2023-09-29 12:43 | Day surgery (SDC) | payer OTHER, SELFPAY ==
[2023-09-29] VITALS (11 sets, daily range): BP systolic 116–147; BP diastolic 76–92; PULSE 93–107; RESP 16–20; TEMP 36.3–36.7; O2SAT 93–98; BMI 34.7
[2023-09-29] MEDS: Lactated Ringers 1,000 ML 50 ML IVCONT (13:38)
--- NOTE | 2023-09-29 14:35 | HO.ANESPROP2 ---
HPI - Anesthesia Eval Consult details Narrative: left knee arthroscopy PMFSH Active Problems Active Problems: All Active Problems (Updated 09/21/23 @ 12:47 by Edmund Mahmood MD) Loose body of right knee (Acute) Knee locking (Acute) Status post arthroscopic partial medial meniscectomy of right knee (Acute) Hepatomegaly (Acute) H/O arthroscopy of left knee (Acute) LFTs abnormal (Acute) Tear of medial meniscus of left knee (Acute) Osteoarthritis of right knee (Acute) Sebaceous cyst (Acute) Knee pain, left (Acute) Trochanteric bursitis, right hip (Acute) Annual physical exam (Acute) Generalized anxiety disorder (Acute) Tear of medial meniscus of right knee (Acute) COVID-19 virus infection (Acute) Osteoarthritis of right knee (Acute) Weakness of right lower extremity (Acute) Lumbosacral spondylosis with radiculopathy (Acute) Fall (Acute) Coccyxdynia (Acute) Myofascial low back pain (Acute) Lump of skin (Acute) Traumatic hematoma of buttock (Acute) Colon cancer screening (Acute) History of adenomatous polyp of colon (Acute) Chronic constipation (Acute) Bilateral knee pain (Acute) Bilateral hand pain (Acute) Viral upper respiratory illness (Acute) TMJ dysfunction (Acute) Brain mass (Acute) Epidermoid cyst of brain (Acute) Dizziness (Acute) Osteoarthritis of knees, bilateral (Acute) Facial dermatitis (Acute) Internal derangement of left knee (Acute) Facial dermatitis (Acute) Breast pain, right (Acute) Vitamin D deficiency (Acute) Anemia (Acute) Knee pain, left (Acute) Lumbar degenerative disc disease (Acute) Epidermal inclusion cyst (Acute) Obesity (BMI 30-39.9) (Acute) Hypercholesterolemia (Acute) GERD (gastroesophageal reflux disease) (Acute) Hypertension (Acute) Bilateral carpal tunnel syndrome (Acute) Primary osteoarthritis of hands, bilateral (Acute) Avascular necrosis of right humeral head (Acute) Past Medical History Medical History Heart murmur Requires management of nerve block infusion Facial dermatitis Breast pain, right Epidermal inclusion cyst Knee pain, left Obesity (BMI 30-39.9) Hip pain, right Rotator cuff disorder Hypercholesterolemia Lumbar degenerative disc disease Anemia Vitamin D deficiency GERD (gastroesophageal reflux disease) Hypertension Bilateral carpal tunnel syndrome Primary osteoarthritis of hands, bilateral Avascular necrosis of right humeral head Hx of tendinitis Hx of diverticulitis of colon Family History Family History Father Hx of diabetes mellitus History of high cholesterol Mother Family hx of hypertension History of asthma Hx of heart disorder Brother Automobile accident Brother Suicide Family/Other No problems noted. Maternal Grandmother History of asthma Paternal Grandfather No problems noted. Daughter In good health Daughter In good health Daughter In good health Family history of problems with anesthesia: No Surgical History Surgical History History of removal of cyst Varicose veins of right lower extremity History of foot surgery Hx of rotator cuff surgery Hx of cholecystectomy Hx of abdominoplasty Hx of colonoscopy Hx of tubal ligation History of Problems with Anesthesia: No Social History Social History Housing: House Alcohol intake: current Alcohol intake frequency: holidays/special occasions only Patient Tobacco Use Status: Former Tobacco user Tobacco use type: Cigarette Years Smoked: stopped 1-2 cigarettes at a time > 2009 e-Cigarette/Vaping Use: Former Use Second Hand Smoke Exposure: No Are you DNR?: No Advance Directives: No Advance Directives Information Provided: Yes Recently lost weight without trying: No Nutrition Risks: No Nutritional Risk service: No 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 occupational status: employed 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 Cognitive needs: No Hearing needs: No Vision needs: Yes Meds Allergies Allergy/AdvReac Type Severity Reaction Status Date / Time No Known Allergies Allergy Verified 09/20/23 09:07 [No Known Allergies*] Active Medications: Current Medications Lactated Ringer's (Lr) 1,000 mls @ 50 mls/hr IVCONT .Q20H TAZ Last Admin: 09/29/23 13:38 Dose: 50 mls/hr Exam Height,Weight and Vital Signs: Height 5 ft 3.5 in Weight 90.265 kg Last Vital Signs Temp 97.4 F 09/29/23 13:10 Pulse 93 09/29/23 13:10 Resp 20 09/29/23 13:10 BP 145/80 H 09/29/23 13:10 Pulse Ox 98 09/29/23 13:10 O2 Del Method Room Air 09/29/23 13:10 Airway Mallampati Class: II TM Dist: >3cm Neck ROM: Full Heart: rrr Lungs: cta Assessment and Plan Final Anesthetic Review Family History of Problems with Anesthesia: No History of Problems with Anesthesia: No NPO: Yes ASA Class: II Final Preanesthetic Review: No Changes in Pt Med Stat, Meds/Allgs Chart Reviewed, Consent Obtained/Reviewed and Anes Risks/Benef Reviewed Patient Risk: Intermediate Procedure Risk: Low Anesthetic Plan Anesthetic Plan: GA Disposition: Standard PACU
--- NOTE | 2023-09-29 15:22 | MHC.SHP ---
Pre-Procedural Eval Section A - 24 Hr Update-Section A only Date of Service: 09/29/23 The patient is an INPATIENT: No Changes since office visit: No Cold of Flu in the past 2 weeks, No New Medical Problems, No Changes in Medication and No Patient answered all questions The patient has been examined within 24 hours of the surgical procedure. The History & Physical has been completed within 30 days and I have reviewed it.: Yes Section B - Complete if H&P > 30 days Chief Complaint: Other tear of medial meniscus, current injury, lef Allergies: Allergies Allergy/AdvReac Type Severity Reaction Status Date / Time No Known Allergies Allergy Verified 09/20/23 09:07 [No Known Allergies*] Plan I have reviewed the history and physical and performed a pertinent physical examination on my patient. No changes have occurred unless specified. Time Spent With Patient Time: Total time managing care of this patient today ____ minutes.
[2023-09-29] MEDS: fentaNYL citrate/PF 100 MCG/2 ML VIAL 25 MCG IVPUSH ×4 (16:27→16:42)
[2023-09-29] MEDS: oxyCODONE HCl Immed Release 5 MG TABLET PO (16:30)
--- NOTE | 2023-09-29 17:25 | P.BOP_ITS ---
Brief Operative Note Date of Service: 09/29/23 Pre-op diagnosis: Left knee loose body Post-op diagnosis: same Procedure: 1) Removal of loose body 2) left knee Surgeon: Edmund Mahomod MD Anesthesia: GETA and local Was an Deputy [employer] Services used for this Procedure?: No Estimated blood loss (mL): 0 Tourniquet time (min): 18 IV fluids (mL): 500 Pathology: other Condition: stable Disposition: PACU
--- NOTE | 2023-10-01 15:27 | W.PM.OPN ---
Operative Note Operative Note Date of Service: 09/29/23 Narrative: Date of Service: 09/29/23 Pre-op diagnosis: Left knee loose body Post-op diagnosis: same Procedure: 1) Removal of loose body 2) left knee Surgeon: Edmund Mahmood MD Anesthesia: GETA and local Was an Computer Instructor used for this Procedure?: No Estimated blood loss (mL): 0 Tourniquet time (min): 18 IV fluids (mL): 500 Pathology: other Condition: stable Disposition: PACU Procedure in detail: Patient was brought to the operating room placed supine on the arthroscopic table and prepped and draped in standard sterile fashion. A time-out was called to identify proper site proper procedure proper surgeon and IV antibiotics per weight were administered. I began by exsanguinating the limb and insufflating tourniquet to 300 mm Hg. Then made a standard anterolateral stab incision. The knee was insufflated with water and 30 degree arthroscope was placed. There was a normal patella and trochlea and overall suprapatellar pouch and the gutters were clean. I had marked the palpable loose body pre-operatively and I could not visualize this from the joint with the arthroscope. I therefore made a 1.5 cm incision with a 15 blade directly over the loose body at the level of the MFC. I dissected sharply down to the loose body and this was removed. It was a ~ 1 cm ossific body. It was removed. There was a small wrent in the capsule. This wound was then irrigated and closed with absorbable suture deep and nylon on the skin. I descended into the medial compartment with the cope and the medial meniscus was intact and there were no new tears. . The root was intact and there was grade 1 changes in the tibial plateau but minimal. The ACL was examined and found to be intact and the lateral compartment also was without the need for intervention. I then removed all instrumentation and closed the lateral portal with nylon. 25 mL of 2% Marcaine with epinephrine was injected into the joint and the surrounding soft tissues. Patient was then placed in sterile dressing extubated brought recovery room stable condition. There were no known complications.
== END 2023-09-29 17:11 | disposition home or self-care (01) ==
LOC: HO.SSS 12:44
PROVIDERS: PCP Internal Medicine; Visit Provider Orthopaedic Surgery
PROC: (CPT 29870; principal; 2023-09-29 16:10)
DX: M23.42 Loose body in knee, left knee (principal); S83.242A Other tear of medial meniscus, current injury, left knee, initial encounter; X58.XXXA Exposure to other specified factors, initial encounter; E78.00 Pure hypercholesterolemia, unspecified; I10 Essential (primary) hypertension; Y93.9 Activity, unspecified; Y92.9 Unspecified place or not applicable; Y99.9 Unspecified external cause status
CPT/HCPCS: 27331; 88304; 88311; J0131; J0171; J0690; J1596; J2250; J2704; J2795; J3010

== ENCOUNTER → 2023-09-29 12:43 | Outpatient (BNV) | payer OTHER, SELFPAY | PROVIDERS: PCP Internal Medicine; Visit Provider Orthopaedic Surgery | DX: M23.42 Loose body in knee, left knee (principal) | CPT/HCPCS: 27331 ==

== ENCOUNTER 2023-10-08 10:39 | Outpatient (AMB) | payer OTHER, SELFPAY ==
--- NOTE | 2023-10-08 10:43 | A.OFFVIS_ITS ---
Intake Intake Visit Reasons: PO LT knee 09/29/23 NE Intake Note: Dariana is a 53 year old female who presents today for a post op appointment s/p LT knee 09/29/23 NE. Patient reports she is feeling a bit sore on the incision site. Allergies No Known Allergies [No Known Allergies*] Allergy (Verified 10/08/23 10:50) HPI PO LT knee 09/29/23 NE HPI Details 53-year-old female who presents in the [facility] today 9 days status post left knee removal of loose body and arthroscopy, which was performed on 09/[address] Mahmood. The patient reports she feels a bit sore at the incision site. [facility] Medical History Heart murmur Requires management of nerve block infusion Facial dermatitis Breast pain, right Epidermal inclusion cyst Knee pain, left Obesity (BMI 30-39.9) Hip pain, right Rotator cuff disorder Hypercholesterolemia Lumbar degenerative disc disease Anemia Vitamin D deficiency GERD (gastroesophageal reflux disease) Hypertension Bilateral carpal tunnel syndrome Primary osteoarthritis of hands, 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 Maternal Grandmother History of asthma Paternal Grandfather No problems noted. 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 Cognitive needs: No Hearing needs: No Vision needs: Yes Female Reproductive History Menstrual Age of Menarche: 15 Review of Systems Const All systems reviewed & are unremarkable except as noted in HPI and below Physical Exam Const General: cooperative, healthy appearing and no acute distress Resp Effort & Inspection: normal respiratory effort and able to speak in complete sentences Cardio Rate: regular rate Peripheral pulses: Peripheral pulses 2+ throughout GI Palpation (GI): Soft to palpation Skin Lesions: no lesions Rashes: no rashes Extrem Other: Left knee: Incision site is clean, dry, and intact. Sutures intact. No surrounding erythema or drainage. No signs of infection. Full ROM. NVI. Assessment & Plan Assessment & Plan (1) S/P left knee arthroscopy: Onset Date: ~09/29/23 Comment: Left knee removal of loose body and arthroscopy NE Code(s): Z98.890 - Other specified postprocedural states (2) Loose body of right knee: Code(s): M23.41 - Loose body in knee, right knee Plan Ms. Escobar is a 53-year-old female who presents in the office today 9 days status post left knee removal of loose body and arthroscopy, which was performed on 09/29/[address] Mahmood. The patient reports she feels a bit sore at the incision site. Sutures were removed and steri-stripes were applied. She may return to normal activities as tolerated. Follow up will be PRN, or sooner if needed. Current pain regiment: --Hydrocodone-acetaminophen 5-325 mg PO Q8H PRN Patient Instructions: Scribed by Monica Denise medical director/head team physician, for Ernestine Cast PA-C on 10/08/2023 at 10:41 am, EST. Coding Level of Care Code Global (20190) Diagnoses S/P left knee arthroscopy Z98.890 Loose body of right knee M23.41
== END 2023-10-08 11:40 | disposition home or self-care (01) ==
PROVIDERS: PCP Internal Medicine; Visit Provider Physician Assistant
DX: Z98.890 Other specified postprocedural states (principal); M23.41 Loose body in knee, right knee
CPT/HCPCS: 99024

== ENCOUNTER → 2023-10-08 10:39 | Outpatient (BNVA) | payer OTHER, SELFPAY | PROVIDERS: PCP Internal Medicine; Visit Provider Physician Assistant ==

== ENCOUNTER 2023-11-20 08:38 | Outpatient (REF) | payer OTHER, SELFPAY | END 2023-11-20 08:39 | disposition home or self-care (01) | LOC: HO.MAMMO 08:38 | PROVIDERS: PCP Internal Medicine; Visit Provider Internal Medicine | DX: Z12.31 Encounter for screening mammogram for malignant neoplasm of breast (principal) | CPT/HCPCS: 77063; 77067 ==

== ENCOUNTER → 2023-11-20 08:45 | Outpatient (BNV) | payer OTHER, SELFPAY | PROVIDERS: PCP Internal Medicine; Visit Provider Radiology Diagnostic Radiology | DX: Z12.31 Encounter for screening mammogram for malignant neoplasm of breast (principal) | CPT/HCPCS: 77063; 77067 ==

== ENCOUNTER 2023-12-03 09:13 | Outpatient (AMB) | payer OTHER, SELFPAY ==
[2023-12-03 09:12] VITALS: BP 140/86; PULSE 104; TEMP 37.4; O2SAT 94; BMI 34.5
--- NOTE | 2023-12-03 09:12 | MHC.OFFWIV ---
Intake Vital Signs 12/03/23 09:12 Height 5 ft 3 in Weight 194 lb 8 oz BMI 34.5 BP 140/86 H Blood Pressure Location Rt brachial Position Sitting Pulse 104 H Pulse Source Pulse Oximeter Temp 99.3 F Temp Source Oral Pulse Oximetry (%) 94 Oxygen Delivery Method Room Air Intake Visit Reasons: EP Sore Throat, Sinus, runny nose, congestion Intake Note: Pt presents to the office today for a sore throat,sinus pressure, runny nose, and congestion that started last week. Patient Tobacco Use Status: Never used Tobacco Allergies No Known Allergies [No Known Allergies*] Allergy (Verified 12/03/23 09:16) HPI EP Sore Throat, Sinus, runny nose, congestion HPI Details 53 year old female patient presents today with flu-like symptoms for the last week, including sinus congestion and cough. Reports she was exposed to her grandaughter who had the flu last week and she was managing symptoms at home, however about 3 days ago she developed throat pain and white spots on her tonsils. 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 Reports feeling hot/cold, however no documented fever. Denies any GI symptoms. [facility] Medical History Heart murmur Requires management of nerve block infusion Facial dermatitis Breast pain, right Epidermal inclusion cyst Knee pain, left Obesity (BMI 30-39.9) Hip pain, right Rotator cuff disorder Hypercholesterolemia Lumbar degenerative disc disease Anemia Vitamin D deficiency GERD (gastroesophageal reflux disease) Hypertension Bilateral carpal tunnel syndrome Primary osteoarthritis of hands, 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 Maternal Grandmother History of asthma Paternal Grandfather No problems noted. 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 Cognitive needs: No Hearing needs: No Vision needs: Yes Female Reproductive History Menstrual Age of Menarche: 15 Review of Systems Const All systems reviewed & are unremarkable except as noted in HPI and below Physical Exam Const General: cooperative and no acute distress HEENT Head: Yes normal to inspection Ears: hearing grossly normal bilaterally General nose exam: Normal external nose present Face and sinus: Yes normal facial exam Mouth: Normal oral and palatal mucosa present Throat: Yes posterior oropharynx abnormal (tonsilar hypertrophy, erythema, exudate) Neck Neck: Yes no lymphadenopathy Resp Effort & Inspection: normal respiratory effort Auscultation: clear to auscultation bilaterally Cardio Rate: regular rate Rhythm: regular rhythm Skin General skin exam: no rashes or lesions noted Extrem General: Yes capillary refill normal and Yes no clubbing, cyanosis or edema Psych Appearance: grossly normal Mental Status: mental status grossly normal Speech and movement: Normal speech and movement present Results AMB Rapid Strep AMB Rapid Strep Negative Last Edit by Mariaelena Archibald CMA on 12/03/23 09:22 Assessment & Plan Assessment & Plan (1) Strep pharyngitis: Code(s): J02.0 - Streptococcal pharyngitis Plan: Rapid strep in the office was negative, however patient has significant tonsillar hypertrophy and exudate bilaterally. Will treat with Pen-V x10 days. Reviewed indications, use, possible side effects of medication. Advised [id number] lozenges to sooth throat, in addition to salt water gargles. COVID/flu/RSV swab was also obtained, as she was likely exposed to the flu last week. Recommended Tylenol/Motrin as needed for ongoing symptom management. If she does not improve with treatment, she should return to the clinic for further evaluation. Work note provided. Patient verbalizes understanding and agrees to plan. Orders: Orders AMB Rapid Strep Screen Today Z13.9 - Encounter for screening, unspecified Medications: New penicillin V potassium 500 mg PO BID 10 days 20 tabs 0RF J02.0 - Streptococcal pharyngitis Coding Level of Care Code Est Pt Level 4 (60663) Diagnoses Strep pharyngitis J02.0
== END 2023-12-03 09:41 | disposition home or self-care (01) ==
PROVIDERS: PCP Internal Medicine; Visit Provider Nurse Practitioner Family
DX: J02.0 Streptococcal pharyngitis (principal)
CPT/HCPCS: 87880; 99214

== ENCOUNTER 2023-12-03 09:43 | Outpatient (REF) | payer OTHER, SELFPAY ==
[2023-12-03 20:35] LABS: Influenza A PCR NEGATIVE (Negative); Influenza B PCR NEGATIVE (Negative); Resp Syncy Virus RNA Qual PCR NEGATIVE (Negative); SARS COV2 PCR INHOUSE NEGATIVE (Negative)
== END 2023-12-03 09:44 | disposition home or self-care (01) ==
LOC: HO.LAB 09:43
PROVIDERS: Visit Provider Nurse Practitioner Family
DX: J06.9 Acute upper respiratory infection, unspecified (principal)
CPT/HCPCS: 0241U

== ENCOUNTER 2023-12-31 08:03 | Outpatient (AMB) | payer OTHER, SELFPAY ==
[2023-12-31 08:05] VITALS: BP 132/76; PULSE 80; TEMP 36.8; O2SAT 97
--- NOTE | 2023-12-31 08:05 | AM.OFFWIN_ITS ---
Intake Vital Signs 12/31/23 08:05 Height 5 ft 3 in BP 132/76 Blood Pressure Location Rt brachial Position Sitting Pulse 80 Pulse Source Pulse Oximeter Temp 98.3 F Temp Source Oral Pulse Oximetry (%) 97 Oxygen Delivery Method Room Air Intake Visit Reasons: EST/stomach aces for over a week, nausea(lobby) Intake Note: pt is here for stomach aches for over a week Patient Tobacco Use Status: Never used Tobacco Allergies No Known Allergies [No Known Allergies*] Allergy (Verified 12/31/23 08:05) Do you need a note to return to daycare/school/sports/work: No HPI HPI Comments History of Present Illness Details 53 y/o female patient who presents to [facility] in clinic with c/o Abdominal cramping associated with Nausea, vomiting and diarrhea x 2 weeks. Pt does endorse unhealthy diet with one time Binge drinking at a green party. Pt states that she does not have a Gallbladder, it was surgically removed. [facility] Medical History Heart murmur Requires management of nerve block infusion Facial dermatitis Breast pain, right Epidermal inclusion cyst Knee pain, left Obesity (BMI 30-39.9) Hip pain, right Rotator cuff disorder Hypercholesterolemia Lumbar degenerative disc disease Anemia Vitamin D deficiency GERD (gastroesophageal reflux disease) Hypertension Bilateral carpal tunnel syndrome Primary osteoarthritis of hands, 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 Maternal Grandmother History of asthma Paternal Grandfather No problems noted. 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 Cognitive needs: No Hearing needs: No Vision needs: Yes Female Reproductive History Menstrual Age of Menarche: 15 Review of Systems Const All systems reviewed & are unremarkable except as noted in HPI and below Physical Exam Vital Signs: Last Vital Signs Temp 98.3 F 12/31/23 08:05 Pulse 80 12/31/23 08:05 BP 132/76 12/31/23 08:05 Pulse Ox 97 12/31/23 08:05 Oxygen Delivery Method Room Air 12/31/23 08:05 Const General: comfortable and no acute distress Nutritional Appearance: obese Orientation/consciousness: patient oriented x3 GI Inspection: Yes obesity Palpation (GI): Soft to palpation, not firm, Tenderness to palpation present (GI) in the epigastrum, no guarding, not rigid and No hepatosplenomegaly present Auscultation: normal bowel sounds Rectal Exam - Female: deferred Neuro General: patient oriented x3, gait normal and moves all extremities Psych Speech and movement: Normal speech and movement present Assessment & Plan Assessment & Plan (1) Gastritis: Code(s): K29.70 - Gastritis, unspecified, without bleeding Qualifiers: Gastritis type: other gastritis Chronicity: acute Gastritis bleeding: without bleeding Qualified Code(s): K29.00 - Acute gastritis without bleeding Plan: - Advised Healthy diet - Do not consume heavy alcohol - Weight loss - BLAND diet - RTC if not better Medications: New famotidine 20 mg PO BEDTIME 30 tabs 0RF K29.00 - Acute gastritis without bleeding metoclopramide HCl (Reglan) 10 mg PO Q6H PRN 30 tabs 0RF nausea and vomiting K29.00 - Acute gastritis without bleeding Coding Level of Care Code Est Pt Level 3 (07140) Diagnoses Other acute gastritis without hemorrhage K29.00 Gastritis type: other gastritis Chronicity: acute Gastritis bleeding: without bleeding Time Spent (min) 15
== END 2023-12-31 09:05 | disposition home or self-care (01) ==
PROVIDERS: PCP Internal Medicine; Visit Provider Nurse Practitioner Family
DX: K29.00 Acute gastritis without bleeding (principal)
CPT/HCPCS: 99213

== ENCOUNTER 2024-01-13 16:29 | Outpatient (AMB) | payer OTHER, SELFPAY ==
[2024-01-13 16:46] VITALS: BP 142/82; PULSE 85; O2SAT 100; BMI 34.4
--- NOTE | 2024-01-13 16:46 | MHC.PC.OV ---
Vital Signs 01/13/24 16:46 Height 5 ft 3 in Weight 194 lb BMI 34.4 BP 142/82 H Blood Pressure Location Lt brachial Position Sitting Pulse 85 Pulse Source Pulse Oximeter Pulse Oximetry (%) 100 Oxygen Delivery Method Room Air Intake Visit Reasons: abdomen pain Signal Supervisor Required: No Chair Frame Builder: Not Required per policy Accompanied by: Self / Same As Patient Allergies No Known Allergies [No Known Allergies*] Allergy (Verified 01/13/24 16:47) Tobacco use date assessed: 01/13/24 Dental Screening Dental Screen Date: 01/13/24 Did you have a dental visit in the last 12 months?: No Did you have a dental problem in the last 6 months where you did not have access to dental care?: No Was dental information given to patient?: Patient has dentist HPI abdomen pain HPI Details 53-year-old obese female with hypertension hypercholesterolemia GERD last seen in 04/28/2023. Patient had a torn medial meniscus of the left knee, partial medial meniscectomy and chondroplasty and plica resection 05/28/2023, left knee arthroscopic surgery 09/28/2023.. Patient is mammograms up-to-date colonoscopy up-to-date 02/25/2023 review of the notes in December 30 seen in the [facility] for abdominal cramping with nausea vomiting and diarrhea binge drinking placed on famotidine and Reglan. Before that in November Urgent Center also for congestion sinus treated for strep pharyngitis with penicillin V. epigastric pain= 2 weeks nausea, no vomiting, no bowel sym, pain after eating, no radiation, - did not like urgent center [facility] Medical History Heart murmur Requires management of nerve block infusion Facial dermatitis Breast pain, right Epidermal inclusion cyst Knee pain, left Obesity (BMI 30-39.9) Hip pain, right Rotator cuff disorder Hypercholesterolemia Lumbar degenerative disc disease Anemia Vitamin D deficiency GERD (gastroesophageal reflux disease) Hypertension Bilateral carpal tunnel syndrome Primary osteoarthritis of hands, 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 Maternal Grandmother History of asthma Paternal Grandfather No problems noted. 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 1. Little interest or pleasure in doing things: more than half the days 2. Feeling down, depressed, or hopeless: more than half the days 3. Trouble falling or staying asleep, or sleeping too much: several days 4. Feeling tired or having little energy: several days 5. Poor appetite or overeating: not at all 6. Feeling bad about yourself - or that you are a failure or have let yourself or your family down: not at all 7. Trouble concentrating on things, such as reading the newspaper or watching television: several days 8. Moving or speaking so slowly that other people could have noticed. Or the opposite - being so fidgety or restless that you have been moving around a lot more than usual: not at all 9. Thoughts that you would be better off or of hurting yourself in some way: not at all Total score: 7 [id number] - PHQ-9 Billing: Yes Source: Developed by Drs. Duane Oliveros, Ludy Truong, Junito Zavala and colleagues, with an educational rpeeti from [employer]. Thrive Questionnaire Date Thrive assessed: 01/13/24 I am a: Patient What is your living situation today?: I have a steady place to live Within the past 12 months, did the food you bought not last and you didn't have the money to get more?: Never true Within the past 12 months, did you worry whether your food would run out before you got money to buy more?: Never true Do you have trouble paying for medicines?: No Do you have trouble getting transportation to medical appointments?: No Do you have trouble paying your heating and electricity bill?: No Do you have trouble taking care of your child, family member or friend?: No Do you have trouble with day-to-day activities such as bathing, preparing meals, shopping, managing finances, etc.?: No Are you currently unemployed and looking for a job?: No Are you interested in more education?: No Please select the resources that you would like help with: None THRIVE Score: 0 AUDIT C Alcohol Use Questionnaire (AUDIT-C) 1. How often do you have a drink containing alcohol?: Never Total Score: 0 Score Reviewed/Action Taken: No GILSON-7 AMB Questionnaire GILSON-7 Date GILSON - 7 assessed: 01/13/24 Feeling nervous, anxious, or on edge: 0 = Not at all Not being able to stop or control worryin = Not at all Worrying too much about different things: 0 = Not at all Trouble relaxin = Not at all Being so restless that it is hard to sit still: 0 = Not at all Becoming easily annoyed or irritable: 0 = Not at all Feeling afraid as if something awful might happen: 0 = Not at all Total GILSON-7 score (0-4 normal; 5-9 mild; 10-14 moderate; 15-21 severe): 0 Source: Developed by Drs. Duane Oliveros, Ludy Truong, Junito Zavala and colleagues, with an educational preeti from [employer]. Physical exam (Primary Care) Vital Signs: Last Vital Signs Pulse 85 01/13/24 16:46 BP 142/82 H 01/13/24 16:46 Pulse Ox 100 01/13/24 16:46 Oxygen Delivery Method Room Air 01/13/24 16:46 BMI result Body Mass Index 34.4 Tobacco/Smoking Status: Tobacco use Status Tobacco use date assessed 01/13/24 01/13/24 16:53 Patient Tobacco Use Status Never used Tobacco 01/13/24 16:53 Tobacco use type Cigarette 01/13/24 16:53 e-Cigarette/Vaping Use Former Use 01/13/24 16:53 PHQ-9: PHQ-9 Score PHQ-9: Total score 7 01/13/24 17:30 Thrive Assessment: Date of Thrive Assessment Date Thrive assessed 01/13/24 01/13/24 16:53 Const General: alert; No acute distress Eyes Conjunctivae: conjunctivae normal Resp Auscultation: clear to auscultation bilaterally Cardio Rate: regular rate Rhythm: regular rhythm GI Inspection: Yes normal to inspection Extrem General: Yes normal to inspection and No edema Assessment and Plan Assessment & Plan (1) Status post arthroscopic partial medial meniscectomy of right knee: Code(s): Z98.890 - Other specified postprocedural states; Z87.828 - Personal history of other (healed) physical injury and trauma Plan: Patient continues to follow-up with orthopedic (2) Obesity (BMI 30-39.9): Code(s): E66.9 - Obesity, unspecified Plan: Diet and exercise (3) GERD (gastroesophageal reflux disease): Comment: Avoid culprits, remain upright 2-3 hours after eating, continue PPI month Avoid further weight gain Code(s): K21.9 - Gastro-esophageal reflux disease without esophagitis Qualifiers: Esophagitis presence: without esophagitis Qualified Code(s): K21.9 - Gastro-esophageal reflux disease without esophagitis Plan: Avoid the foods that causes that usually spicy foods, tomato products, juices, coffee, soda and foods that your sensitive to. After eating do not lie down, allow 3-4 hours before in lie down. And keep the head of bed above 30 degrees to avoid the acid from going up. Orders: Orders FL upper GI series Today K21.9 - Gastro-esophageal reflux disease without esophagitis, R13.10 - Dysphagia, unspecified Complete Blood Count Auto Diff Today K21.9 - Gastro-esophageal reflux disease without esophagitis Comprehensive Met. Panel Today K21.9 - Gastro-esophageal reflux disease without esophagitis Medications: Refilled lidocaine 5% 1 patch topical DAILY PRN 30 patches 3RF for pain M17.11 - Unilateral primary osteoarthritis, right knee Discontinued famotidine Discontinued Reason: Ancillary Entered New Order 20 mg PO BEDTIME 30 tabs 0RF K29.00 - Acute gastritis without bleeding metoclopramide HCl (Reglan) Discontinued Reason: Duplicate 10 mg PO Q6H PRN 30 tabs 0RF nausea and vomiting K29.00 - Acute gastritis without bleeding gabapentin Discontinued Reason: Change Referral Type 300 mg PO TID 30 days 90 caps 3RF for pain M47.27 - Other spondylosis with radiculopathy, lumbosacral region, M51.36 - Other intervertebral disc degeneration, lumbar region Coding Level of Care Code Est Pt Level 4 (65076) Diagnoses Status post arthroscopic partial medial meniscectomy of right knee Z98.890; Z87.828 Obesity (BMI 30-39.9) E66.9 Gastroesophageal reflux disease without esophagitis K21.9 Esophagitis presence: without esophagitis
== END 2024-01-13 17:45 | disposition home or self-care (01) ==
PROVIDERS: PCP Internal Medicine; Visit Provider Internal Medicine
DX: K21.9 Gastro-esophageal reflux disease without esophagitis (principal); E66.9 Obesity, unspecified; Z68.34 Body mass index [BMI] 34.0-34.9, adult
CPT/HCPCS: 99214

== ENCOUNTER 2024-02-02 10:01 | Outpatient (REF) | payer OTHER, SELFPAY ==
[2024-02-02 10:09] LABS: MANUAL DIFF FLAG NO
[2024-02-02 10:20] LABS: Basophils Percent Auto 0.3 % (0-2); Eosinophils Absolute Auto 0.2 X10*3/uL (0.0-0.4); Eosinophils Percent Auto 2.5 % (0-4); Hematocrit 37.7 % (37.0-47.0); Hemoglobin 12.3 g/dl (12.0-16.0); Imm Gran Abs Auto 0.04 X10*3/uL (0.00-0.03); Imm Gran Pct Auto 0.5 % (0.0-0.4); Lymphocytes Absolute Auto 2.9 X10*3/uL (1.2-4.9); Lymphocytes Percent Auto 32.8 % (20-40); Mean Corpuscular HGB Conc 32.6 g/dl (31.0-35.0); Mean Corpuscular Hemoglobin 27.2 pg (27.0-33.0); Mean Corpuscular Volume 83.4 fL (80.0-98.0); Mean Platelet Volume 9.5 fL (9.4-12.3); Monocytes Absolute Auto 0.6 X10*3/uL (0.1-1.2); Monocytes Percent Auto 7.3 % (2-11); Neutrophils Absolute Auto 4.9 x10*3/uL (2.0-8.3); Neutrophils Percent Auto 56.6 % (45-73); Platelet Count 391 X10*3/uL (160-400); Red Blood Count 4.52 X10*6/uL (4.20-5.50); Red Cell Distribution Width 13.9 % (11.0-16.0); White Blood Count 8.7 X10*3/uL (4.8-10.8)
[2024-02-02 10:53] LABS: Alanine Aminotransferase 18 U/L (0-31); Alkaline Phosphatase 75 U/L (39-117); Anion Gap 12 (12-20); Aspartate Amino Transferase 14 U/L (5-31); Bilirubin Direct 0.1 mg/dL (0.0-0.5); Bilirubin Total 0.4 mg/dL (0.0-1.0); Blood Urea Nitrogen 10 mg/dL (9-16); Calcium 9.6 mg/dL (8.4-10.2); Carbon Dioxide 29 mmol/L (22-29); Chloride 104 mmol/L (96-108); Estimated Glomerular Filt Rate > 60; Glucose Random 90 mg/dL (60-115); Potassium 3.5 mmol/L (3.3-5.1); Sodium 141 mmol/L (135-145); Total Protein 7.7 g/dL (6.5-8.0)
[2024-02-02 11:11] LABS: Ferritin 40 ng/mL (10-250); HBS Num1 0.24 mIU/mL (0-7.99); HBc Num1 0.25 S/CO (0.00-0.79); HBsAGNum1 0.28 S/CO (0.00-0.99); Hepatitis B Core Antibody Nonreactive (Nonreactive); Hepatitis B Surface Antigen Negative (Negative); ~HepC Num1 0.13 S/CO (0.00-0.79); ~Hepatitis B Surface Antibody NONREACTIVE (Nonreactive); ~Hepatitis C Antibody Nonreactive (Nonreactive)
== END 2024-02-02 10:02 | disposition home or self-care (01) ==
LOC: HO.LAB 10:01
PROVIDERS: PCP Internal Medicine; Visit Provider Internal Medicine
DX: K21.9 Gastro-esophageal reflux disease without esophagitis (principal); R79.89 Other specified abnormal findings of blood chemistry
CPT/HCPCS: 36415; 80053; 82248; 82728; 85025; 86704; 86706; 86803; 87340

== ENCOUNTER 2024-03-22 09:35 | Outpatient (REF) | payer BC, SELFPAY ==
--- NOTE | ~2024-03-22 | FL_ITS ---
EXAMINATION: XR FLUOROSCOPY UPPER GI WITH AIR CLINICAL INFORMATION: Reflux COMPARISON: None TECHNIQUE: Fluoroscopic air contrast upper GI examination was performed utilizing standard techniques with thin and thick barium and effervescent granules. Numerous spot images were obtained. FINDINGS: Dual and single contrast images of the esophagus demonstrate normal caliber, contour, and mucosal pattern. Mild cricopharyngeal achalasia is present. No evidence of stricture, mass, or ulcerations identified. Esophageal peristalsis is mildly disorganized. A small type I hiatal hernia is present. No significant gastroesophageal reflux was seen during the course of the examination and on reflux views. Surgical clips are present in the right upper quadrant. Dual contrast and single contrast images of the stomach demonstrated a normal contour. Evaluation of the gastric mucosa is somewhat limited, due to underdistention of the stomach from poor tolerance of the effervescent granules. The gastric rugal folds have a thickened appearance, which suggest gastritis, however, may be also due to underdistention of the stomach. No masses are seen. Contrast freely passed into the gastric antrum and duodenal bulb without delay. Single and air-contrast images of the duodenal bulb demonstrate no abnormality. The duodenal sweep has a normal appearance, course, and mucosal fold appearance. The imaged proximal jejunum has a normal fold pattern and caliber. FLUOROSCOPY TIME: 2 minutes 49 seconds Number of Spot Images: 6 Number of Cine: 13 DOSE AREA PRODUCT: 2428 uGy-m2 (microgray-meter squared) FL/FL upper GI w air IMPRESSION: 1. Mild cricopharyngeal achalasia. 2. Mildly disorganized esophageal peristalsis. 3. Small type I hiatal hernia. 4. Status post cholecystectomy. 5. Limited evaluation of the gastric mucosa due to underdistention of the stomach from poor tolerance of the effervescent granules. The gastric rugal folds have a thickened appearance, which suggests gastritis, however, may be also due to underdistention of the stomach. This procedure was performed by Russell Zhao PA-C, and supervised by Dr. Iraheta
== END 2024-03-22 09:36 | disposition home or self-care (01) ==
LOC: HO.XRAY 09:35
PROVIDERS: PCP Internal Medicine; Visit Provider Internal Medicine
DX: R13.10 Dysphagia, unspecified (principal); K21.9 Gastro-esophageal reflux disease without esophagitis
CPT/HCPCS: 74246

== ENCOUNTER → 2024-03-22 09:37 | Outpatient (BNV) | payer BC, SELFPAY | PROVIDERS: PCP Internal Medicine; Visit Provider Physician Assistant Surgical | DX: K21.9 Gastro-esophageal reflux disease without esophagitis (principal) | CPT/HCPCS: 74246 ==

== ENCOUNTER 2024-04-21 14:34 | Outpatient (AMB) | payer BC, SELFPAY ==
--- NOTE | 2024-04-21 14:38 | A.OFFPC_ITS ---
Vital Signs 04/21/24 14:40 Height 5 ft 3 in Weight 194 lb 8 oz BMI 34.5 BP 132/80 Blood Pressure Location Lt brachial Position Sitting Pulse 85 Pulse Source Pulse Oximeter Pulse Oximetry (%) 97 Oxygen Delivery Method Room Air Intake Visit Reasons: Heaviness in chest Intake Note: Patient is here to follow up on pressure in chest and difficulty breath on going for 4 days, productive coughing. Sheet Rock Nailer Required: No Senior Linux Administrator: Not Required per policy Accompanied by: Self / Same As Patient Allergies No Known Allergies [No Known Allergies*] Allergy (Verified 04/21/24 14:39) Medication List - Last Reconciled 04/21/24 by Mili Mcdaniel PA-C buspirone 7.5 mg PO BID 90 days cholecalciferol (vitamin D3) 50 mcg PO DAILY 90 days docusate sodium 200 mg (2 x 100 mg) PO DAILY PRN Donut pillow As directed hydrochlorothiazide 25 mg PO QAM leg brace (Knee Support Brace) [id number] knee support lidocaine 5% 1 patch topical DAILY PRN lorazepam 1 mg PO BID PRN 90 days omeprazole 40 mg (2 x 20 mg) PO DAILY sertraline 100 mg PO DAILY tramadol 50 mg PO Q8H PRN 30 days Tobacco use date assessed: 04/21/24 Dental Screening Dental Screen Date: 01/13/24 HPI Heaviness in chest HPI Details 53-year-old obese female with hypertensi on, hypercholesterolemia, GERD, last seen by Dr. Haynes coming in for acute problem. Patient states she feels pressure throughout her chest and has pain on the right side of the sternum that goes up into the right side of the neck. She also admits to occasional shortness of breath with the chest discomfort. These s ymptoms started 3-4 days ago along with cough, sneezing, congestion, headaches and occasional heart palpitations. She denies any fevers or back pains. She has taken tramadol for the pain which does not improve the pain however she does also mentioned the tramadol does not typically help her pains. She denies any discomfort like this in the past. Denies any sick household contacts. FOR[facility]LY [facility] Medical History Heart murmur Requires management of nerve block infusion Facial dermatitis Breast pain, right Epidermal inclusion cyst Knee pain, left Obesity (BMI 30-39.9) Hip pain, right Rotator cuff disorder Hypercholesterolemia Lumbar degenerative disc disease Anemia Vitamin D deficiency GERD (gastroesophageal reflux disease) Hypertension Bilateral carpal tunnel syndrome Primary osteoarthritis of hands, bilateral Avascular necrosis of right humeral head Hx of tendinitis Hx of diverticulitis of colon Surgical History History of removal of cyst Varicose veins of right lower extremity History of foot surgery Hx of rotator cuff surgery Hx of cholecystectomy Hx of abdominoplasty Hx of colonoscopy Hx of tubal ligation Family History (Updated 04/21/24 @ 14:39 by ERNST Wyatt) Father Hx of diabetes mellitus History of high cholesterol Mother Family hx of hypertension History of asthma Hx of heart disorder Brother Automobile accident Brother Suicide Family/Other No problems noted. Maternal Grandmother History of asthma Paternal Grandfather No problems noted. 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 Duane Oliveros, Ludy Truong, Junito Zavala and colleagues, with an educational preeti from [employer]. Review of Systems Const Denies body aches, Denies chills, Denies fever(s), Reports headache(s) and Denies poor appetite Eyes Reports no additional complaints ENT Denies dizziness, Reports headache(s) and Reports nasal congestion Card Details: Chest pressure and occasional palpitations Denies chest pain, Denies syncope, Denies edema, Denies irregular heart rhythm, Reports lightheadedness and Reports dyspnea Resp Reports cough, Denies hemoptysis and Reports dyspnea GI Denies abdominal pain Reports no additional complaints Musc Reports no additional complaints and Denies abnormal gait Skin/Breast Reports system reviewed and no additional complaints, except as documented Neuro Denies abnormal gait, Denies dizziness, Denies syncope and Reports headache(s) Psych Reports no additional complaints Physical exam (Primary Care) Vital Signs: Last Vital Signs Pulse 85 04/21/24 14:40 BP 132/80 04/21/24 14:40 Pulse Ox 97 04/21/24 14:40 Oxygen Delivery Method Room Air 04/21/24 14:40 BMI result Body Mass Index 34.5 Tobacco/Smoking Status: Tobacco use Status Tobacco use date assessed 04/21/24 04/21/24 14:43 Patient Tobacco Use Status Never used Tobacco 04/21/24 14:44 Tobacco use type Cigarette 04/21/24 14:44 e-Cigarette/Vaping Use Former Use 04/21/24 14:44 Thrive Assessment: Date of Thrive Assessment Date Thrive assessed 01/13/24 04/21/24 14:43 Const General: cooperative, healthy appearing, comfortable and no acute distress Orientation/consciousness: patient oriented x3 HENMT Head: Yes normocephalic Ears: hearing grossly normal bilaterally General nose exam: Normal external nose present Face and sinus: Yes normal facial exam Mouth: oropharynx normal Eyes General: appearance normal, both eyes and all related structures Conjunctivae: conjunctivae normal Neck Neck: Yes full ROM and Yes no lymphadenopathy Chest Other: Tenderness to palpation over right side of the chest and along the sternocleidomastoid muscle as well as the center of the chest Chest palpation & inspection: normal inspection of the chest and No rash Resp Effort & Inspection: normal respiratory effort Auscultation: clear to auscultation bilaterally, no crackles, no rales, no rhonchi and no wheezes Cardio Rate: regular rate Rhythm: regular rhythm Skin General skin exam: no rashes or lesions noted Neuro General: patient oriented x3 Gait exam (Neuro): Normal gait present Extrem General: Yes normal to inspection, Yes full ROM and No edema Psych Affect: normal affect Attitude: cooperative Insight: Good insight present (Psych) Judgement: Good judgement present (Psych) Assessment and Plan Assessment & Plan (1) Palpitations: Code(s): R00.2 - Palpitations Plan: EKG in the office showed normal sinus rhythm with no evidence of abnormality or infarct. Patient does have a history of palpitations and advised to monitor symptoms and return if symptoms worsen or change. (2) Cough: Code(s): R05.9 - Cough, unspecified Plan: Patient does have symptoms of upper respiratory infection and ordered for COVID test which was completed shortly after the visit. Covid was positive and advised patient to use over the counter cough and cold medication that is safe for high blood pressure. She may use Tylenol and ibuprofen as needed for pain along with a muscle relaxer for the chest discomfort. (3) Chest pressure: Code(s): R07.89 - Other chest pain Plan: Patient did report chest pressure worse on the right side with pain extending up into the right side of the neck. On exam pain was reproducible with palpation on the right side and most likely muscular in nature. We can try methocarbamol as needed for muscle strain. Reviewed with patient red flag symptoms and when to present to the ER. Plan This note was constructed using voice recognition software. While every effort has been made to ensure accuracy and crop grain or livestock farm manager, still areas may have been included sometimes these areas may affect the content or meeting of the given symptoms. Total time spent caring for the patient today was 30 minutes. This includes time spent before the visit reviewing the chart, time spent during the visit, and time spent after the visit and documentation. Orders: Orders TSH reflex Free T4 Today Z00.00 - Encounter for general adult medical examination without abnormal findings Vitamin B12 and Folate Today Z00.00 - Encounter for general adult medical examination without abnormal findings Free T4 (Free Thyroxine) Today Z00.00 - Encounter for general adult medical examination without abnormal findings AMB EKG-In Office Today R00.2 - Palpitations COVID-19 ID NOW ([place]) Today R05.9 - Cough, unspecified Lipid Panel Today Z00.00 - Encounter for general adult medical examination without abnormal findings Vitamin D 25-OH (D2 and D3) Today Z00.00 - Encounter for general adult medical examination without abnormal findings Medications: New methocarbamol 500 mg PO BEDTIME PRN 14 tabs 0RF pain chlorpheniramine-acetaminophen 2-325 mg (Coricidin HBP Cold and Flu) 1 tab PO Q4-6H PRN 14 tabs 0RF sinus symptoms Coding Level of Care Code Est Pt Level 4 (81433) Diagnoses Palpitations R00.2 Cough R05.9 Chest pressure R07.89
[2024-04-21 14:40] VITALS: BP 132/80; PULSE 85; O2SAT 97; BMI 34.5
== END 2024-04-21 15:19 | disposition home or self-care (01) ==
PROVIDERS: PCP Internal Medicine
DX: R00.2 Palpitations (principal); R05.9 Cough, unspecified; R07.89 Other chest pain
CPT/HCPCS: 99214

== ENCOUNTER 2024-04-21 15:26 | Outpatient (REF) | payer BC, SELFPAY ==
[2024-04-21 15:44] LABS: COVID-19 Test Positive (Negative); IDNOW Serial# 08D9AD1C
== END 2024-04-21 15:27 | disposition home or self-care (01) ==
LOC: HO.LAB 15:26
PROVIDERS: PCP Internal Medicine
DX: R05.9 Cough, unspecified (principal)
CPT/HCPCS: 87635

== ENCOUNTER 2024-06-02 10:12 | Outpatient (AMB) | payer BC, SELFPAY ==
[2024-06-02 10:18] VITALS: BP 144/82; PULSE 81; O2SAT 98; BMI 34.9
--- NOTE | 2024-06-02 10:18 | A.OFFPC_ITS ---
Vital Signs 06/02/24 10:18 Height 5 ft 3 in Weight 197 lb BMI 34.9 BP 144/82 H Blood Pressure Location Lt brachial Position Sitting Pulse 81 Pulse Source Pulse Oximeter Pulse Oximetry (%) 98 Oxygen Delivery Method Room Air Intake Visit Reasons: Annual PE Allergies No Known Allergies [No Known Allergies*] Allergy (Verified 06/02/24 10:19) Medication List - Last Reconciled 06/02/24 by Mian Haynes, buspirone 7.5 mg PO BID 90 days chlorpheniramine-acetaminophen 2-325 mg (Coricidin HBP Cold and Flu) 1 tab PO Q4-6H PRN cholecalciferol (vitamin D3) 50 mcg PO DAILY 90 days docusate sodium 200 mg (2 x 100 mg) PO DAILY PRN Donut pillow As directed hydrochlorothiazide 25 mg PO QAM leg brace (Knee Support Brace) [id number] knee support lidocaine 5% 1 patch topical DAILY PRN lorazepam 1 mg PO BID PRN 90 days methocarbamol 500 mg PO BEDTIME PRN omeprazole 40 mg (2 x 20 mg) PO DAILY sertraline 100 mg PO DAILY tramadol 50 mg PO Q8H PRN 30 days Tobacco use date assessed: 04/21/24 Dental Screening Dental Screen Date: 01/13/24 HPI Annual PE HPI Details 53-year-old obese female with a history of hypertension GERD hypercholesterolemia lumbar degenerative disc disease osteoarthritis of the knee generalized anxiety disorder coming in today for physical exam. Patient's mammogram is up-to-date colonoscopy up-to-date 2022.. 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 Patient was also positive for COVID-19 infection 04/21/2024. [facility] Medical History Heart murmur Requires management of nerve block infusion Facial dermatitis Breast pain, right Epidermal inclusion cyst Knee pain, left Obesity (BMI 30-39.9) Hip pain, right Rotator cuff disorder Hypercholesterolemia Lumbar degenerative disc disease Anemia Vitamin D deficiency GERD (gastroesophageal reflux disease) Hypertension Bilateral carpal tunnel syndrome Primary osteoarthritis of hands, bilateral Avascular necrosis of right humeral head Hx of tendinitis Hx of diverticulitis of colon Surgical History History of removal of cyst Varicose veins of right lower extremity History of foot surgery Hx of rotator cuff surgery Hx of cholecystectomy Hx of abdominoplasty Hx of colonoscopy Hx of tubal ligation Family History (Updated 04/21/24 @ 14:39 by ERNST Wyatt) Father Hx of diabetes mellitus History of high cholesterol Mother Family hx of hypertension History of asthma Hx of heart disorder Brother Automobile accident Brother Suicide Family/Other No problems noted. Maternal Grandmother History of asthma Paternal Grandfather No problems noted. 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 1. Little interest or pleasure in doing things: nearly every day 2. Feeling down, depressed, or hopeless: more than half the days 3. Trouble falling or staying asleep, or sleeping too much: more than half the days 4. Feeling tired or having little energy: more than half the days 5. Poor appetite or overeating: more than half the days 6. Feeling bad about yourself - or that you are a failure or have let yourself or your family down: not at all 7. Trouble concentrating on things, such as reading the newspaper or watching television: several days 8. Moving or speaking so slowly that other people could have noticed. Or the opposite - being so fidgety or restless that you have been moving around a lot m ore than usual: several days 9. Thoughts that you would be better off or of hurting yourself in some way: not at all Total score: 13 Source: Developed by Drs. Duane Oliveros, Ludy Truong, Junito Zavala and colleagues, with an educational preeti from [employer]. Thrive Questionnaire Date Thrive assessed: 01/13/24 I am a: Patient What is your living situation today?: I have a steady place to live Within the past 12 months, did the food you bought not last and you didn't have the money to get more?: Sometimes True Within the past 12 months, did you worry whether your food would run out before you got money to buy more?: I choose not to answer this question Do you have trouble paying for medicines?: No Do you have trouble getting transportation to medical appointments?: No Do you have trouble paying your heating and electricity bill?: No Do you have trouble taking care of your child, family member or friend?: No Do you have trouble with day-to-day activities such as bathing, preparing meals, shopping, managing finances, etc.?: I choose not to answer this question Are you currently unemployed and looking for a job?: No Are you interested in more education?: No Please select the resources that you would like help with: None Currently or been in a relationship where the following occur: No concerns reported THRIVE Score: 1 AUDIT C Alcohol Use Questionnaire (AUDIT-C) 1. How often do you have a drink containing alcohol?: Monthly or less 2. How many drinks containing alcohol do you have on a typical day when you are drinking?: 1 or 2 3. How often do you have six or more drinks on one occasion?: Less than monthly Total Score: 2 GILSON-7 AMB Questionnaire GILSON-7 Date GILSON - 7 assessed: 01/13/24 Feeling nervous, anxious, or on edge: 3 = Nearly every day Not being able to stop or control worryin = More than half the days Worrying too much about different things: 2 = More than half the days Trouble relaxin = More than half the days Being so restless that it is hard to sit still: 2 = More than half the days Becoming easily annoyed or irritable: 1 = Several days Feeling afraid as if something awful might happen: 1 = Several days Total GILSON-7 score (0-4 normal; 5-9 mild; 10-14 moderate; 15-21 severe): 13 Source: Developed by Drs. Duane Oliveros, Ludy Truong, Junito Zavala and colleagues, with an educational preeti from [employer]. Review of Systems Const Denies poor appetite and Denies weakness Eyes Denies no additional complaints ENT Reports Normal hearing present, Denies dizziness, Denies nasal congestion, Denies tinnitus and Denies sore throat Card Denies chest pain, Denies syncope, Denies rapid heart rate and Denies dyspnea Resp Denies cough and Denies dyspnea GI Denies change in stool character, Reports constipation, Denies diarrhea, Denies nausea and Denies vomiting Denies urinary frequency, Denies difficulty voiding and Denies dysuria Neuro Reports Normal hearing present, Denies confusion, Denies dizziness, Denies syncope and Denies weakness Psych Denies confusion Physical exam (Primary Care) Vital Signs: Last Vital Signs Pulse 81 06/02/24 10:18 BP 144/82 H 06/02/24 10:18 Pulse Ox 98 06/02/24 10:18 Oxygen Delivery Method Room Air 06/02/24 10:18 BMI result Body Mass Index 34.9 Tobacco/Smoking Status: Tobacco use Status Tobacco use date assessed 04/21/24 06/02/24 10:24 Patient Tobacco Use Status Former Tobacco user 06/02/24 10:42 Tobacco use type Cigarette 06/02/24 10:42 e-Cigarette/Vaping Use Former Use 06/02/24 10:42 PHQ-9: PHQ-9 Score PHQ-9: Total score 13 06/02/24 10:32 Thrive Assessment: Date of Thrive Assessment Date Thrive assessed 01/13/24 06/02/24 10:24 Currently or been in a relationship where the following occur: No concerns reported Const General: No confusion Orientation/consciousness: No confusion HENMT Head: Yes normocephalic Ears: external ears normal and TM's normal bilaterally Face and sinus: Yes normal facial exam Mouth: moist mucous membranes Throat: Yes tonsils normal Eyes Conjunctivae: conjunctivae normal Pupils: Equal, round and reactive pupils present and Pupil accommodation reflex normal Direct Ophthalmoscopy: normal light reflex Neck Neck: No lymphadenopathy Thyroid: Thyroid normal Chest Chest palpation & inspection: normal inspection of the chest Resp Effort & Inspection: normal respiratory effort and no audible wheezes Auscultation: clear to auscultation bilaterally, no crackles, no wheezes and lung sounds not diminished Cardio Rate: regular rate Rhythm: regular rhythm Peripheral pulses: radial pulses present and dorsalis pedis present GI Palpation (GI): no masses Auscultation: normal bowel sounds and normoactive bowel sounds Rectal Exam - Female: deferred Skin General skin exam: no rashes or lesions noted Rashes: no rashes Neuro General: No confusion Cranial nerves: Yes Equal, round and reactive pupils present and Yes Normal hearing present Cognition (Neuro): normal cognition Gait exam (Neuro): Normal gait present Motor exam (neuro): 5/5 motor strength present throughout Deep tendon reflexes (DTR's): Right brachioradialis reflex intensity grade: 2+, Left brachioradialis reflex intensity grade: 2+, Right patellar reflex intensity grade: 2+ and Left patellar reflex intensity grade: 2+ Extrem General: No edema Office Procedures Flu Questionnaire Does the patient have a severe egg allergy?: No Does the patient have severe life threatening allergies?: No Does the patient have a fever or illness today?: No Has the patient ever had Guillain-Calumet Syndrome?: No Has the patient ever had any past reaction to a flu shot?: No Immunizations Fluarix Triv [id number] (PF) 45 mcg (15 mcg x 3)/0.5 mL IM syringe Performing Provider: Mian Haynes MD [facility] [place] [facility] Administered by: Lora Justice CMA on 06/02/24 10:33 Dose Route Admin Location Dispensed Lot Number Expiration Date NDC Senior Sales Administrator 0.5 mL IM Left Deltoid 0.5 mL [id number] 02/05/25 [id number] [employer] VIS Given Date VIS Provided VIS Publication Date 06/02/24 Single Vaccine 21 Eligibility Eligibility Date Funding Source Not [facility] Eligible 06/02/24 Private Coding Level of Care Code Est Pt Prev Care 40-64y([id number]) Diagnoses Annual physical exam Z00.00 Essential hypertension I10 Hypertension type: essential hypertension Gastroesophageal reflux disease without esophagitis K21.9 Esophagitis presence: without esophagitis Hypercholesterolemia E78.00 Obesity (BMI 30-39.9) E66.9 Primary osteoarthritis of both knees M17.0 Osteoarthritis type: primary Generalized anxiety disorder F41.1 Hypersomnia G47.10 Vision changes H53.9 Assessment & Plan Assessment & Plan (1) Annual physical exam: Code(s): Z00.00 - Encounter for general adult medical examination without abnormal findings Category: Medical Plan: Patient is advised to eat healthy, keep well hydrated, keep active and have adequate sleep. (2) Hypertension: Code(s): I10 - Essential (primary) hypertension Category: Medical Qualifiers: Hypertension type: essential hypertension Qualified Code(s): I10 - Essential (primary) hypertension Plan: Continue with blood pressure medication. Decrease salt intake and exercise patient on hydrochlorothiazide 25 mg once a day BP elevated (3) GERD (gastroesophageal reflux disease): Comment: Avoid culprits, remain upright 2-3 hours after eating, continue PPI month Avoid further weight gain Code(s): K21.9 - Gastro-esophageal reflux disease without esophagitis Category: Medical Qualifiers: Esophagitis presence: without esophagitis Qualified Code(s): K21.9 - Gastro-esophageal reflux disease without esophagitis Plan: Avoid the foods that causes that usually spicy foods, tomato products, juices, coffee, soda and foods that your sensitive to. After eating do not lie down, allow 3-4 hours before in lie down. And keep the head of bed above 30 degrees to avoid the acid from going up. (4) Hypercholesterolemia: Code(s): E78.00 - Pure hypercholesterolemia, unspecified Category: Medical Plan: Avoid fried foods, chicken skin, eggs, butter margarine, pastries and meat. Be it pork or beef they have a lot of cholesterol LDL goal of less than 130 and t riglyceride of less than 150 patient will need retesting (5) Obesity (BMI 30-39.9): Code(s): E66.9 - Obesity, unspecified Category: Medical Plan: Diet and exercise (6) Osteoarthritis of knees, bilateral: Code(s): M17.0 - Bilateral primary osteoarthritis of knee Category: Medical Qualifiers: Osteoarthritis type: primary Qualified Code(s): M17.0 - Bilateral primary osteoarthritis of knee Plan: Continues to be active and lose the weight (7) Generalized anxiety disorder: Code(s): F41.1 - Generalized anxiety disorder Category: Medical Plan: Continue with present medication (8) Hypersomnia: Code(s): G47.10 - Hypersomnia, unspecified Category: Medical Plan: Sleep study requested (9) Vision changes: Code(s): H53.9 - Unspecified visual disturbance Category: Medical Plan: Referral ophthalmology done Orders: Orders Lipid Panel Today E78.00 - Pure hypercholesterolemia, unspecified Vitamin D 25-OH Total Today E78.00 - Pure hypercholesterolemia, unspecified Hemoglobin A1c Today E78.00 - Pure hypercholesterolemia, unspecified UA CC w/rflx Micro + Cult Today E78.00 - Pure hypercholesterolemia, unspecified, R30.0 - Dysuria Influenza [id number] Immunization Today Z23 - Encounter for immunization RT home sleep study Today G47.10 - Hypersomnia, unspecified Complete Blood Count Auto Diff Today E78.00 - Pure hypercholesterolemia, unspecified Comprehensive Met. Panel Today E78.00 - Pure hypercholesterolemia, unspecified Free T4 (Free Thyroxine) Today E78.00 - Pure hypercholesterolemia, unspecified Thyroid Stimulating Hormone Today E78.00 - Pure hypercholesterolemia, unspec ified Vitamin B12 and Folate Today E78.00 - Pure hypercholesterolemia, unspecified Referrals Psychiatry Outpatient Consultation Service F41.1 - Generalized anxiety disorder Gastroenterology Referral K21.9 - Gastro-esophageal reflux disease without esophagitis Ophthalmology Referral H53.9 - Unspecified visual disturbance Medications: New lisinopril 10 mg PO DAILY 30 tabs 3RF I10 - Essential (primary) hypertension Discontinued hydrochlorothiazide Discontinued Reason: Doctor's Order 25 mg PO QAM 90 tabs 2RF
== END 2024-06-02 12:06 | disposition home or self-care (01) ==
PROVIDERS: PCP Internal Medicine; Visit Provider Internal Medicine
DX: Z00.00 Encounter for general adult medical examination without abnormal findings (principal); I10 Essential (primary) hypertension; E66.9 Obesity, unspecified; Z68.33 Body mass index [BMI] 33.0-33.9, adult; K21.9 Gastro-esophageal reflux disease without esophagitis; E78.00 Pure hypercholesterolemia, unspecified; M17.0 Bilateral primary osteoarthritis of knee; F41.1 Generalized anxiety disorder; G47.10 Hypersomnia, unspecified; H53.9 Unspecified visual disturbance

== ENCOUNTER → 2024-06-02 10:12 | Outpatient (BNVA) | payer BC, SELFPAY | PROVIDERS: PCP Internal Medicine; Visit Provider Internal Medicine | DX: Z00.00 Encounter for general adult medical examination without abnormal findings (principal); I10 Essential (primary) hypertension; K21.9 Gastro-esophageal reflux disease without esophagitis; Z23 Encounter for immunization; E78.00 Pure hypercholesterolemia, unspecified; E66.9 Obesity, unspecified; Z68.34 Body mass index [BMI] 34.0-34.9, adult; M17.0 Bilateral primary osteoarthritis of knee; F41.1 Generalized anxiety disorder; G47.10 Hypersomnia, unspecified; H53.9 Unspecified visual disturbance; Z79.899 Other long term (current) drug therapy | CPT/HCPCS: 90471; 90656; 96127 ==

== ENCOUNTER → 2024-07-10 10:04 | Outpatient (REF) | payer BC, SELFPAY | LOC: HO.SL 10:04 | PROVIDERS: PCP Internal Medicine; Visit Provider Internal Medicine | DX: G47.10 Hypersomnia, unspecified (principal) | CPT/HCPCS: 95806 ==

== ENCOUNTER → 2024-07-10 10:31 | Outpatient (BNV) | payer BC, SELFPAY | PROVIDERS: PCP Internal Medicine; Visit Provider Internal Medicine | DX: R06.83 Snoring (principal); G47.10 Hypersomnia, unspecified | CPT/HCPCS: 95806 ==

== ENCOUNTER 2024-08-05 18:01 | Emergency (ER) | payer BC, SELFPAY ==
--- NOTE | 2024-08-05 18:02 | ECG_ITS ---
Test Reason : CHEST PAIN Blood Pressure : / mmHG Vent. Rate : 088 BPM Atrial Rate : 088 BPM P-R Int : 122 ms QRS Dur : 082 ms QT Int : 356 ms P-R-T Axes : 070 -17 007 degrees QTc Int : 430 ms Normal sinus rhythm Normal ECG When compared with ECG of 08-JUN-2023 08:53, No significant change was found Referred By: Generic ED Physician Electronically Signed By:Jaime Benedict
[2024-08-05 18:06] VITALS: BP 170/62; PULSE 80; RESP 20; TEMP 36.9; O2SAT 98; BMI 35.7
--- NOTE | 2024-08-05 18:09 | ED_ITS ---
HPI - Chest Pain General Chief Complaint: Chest Pain Stated Complaint: chest pain Time Seen by Provider: 08/05/24 22:23 Source: patient Limitations: no limitations History of Present Illness ED Provider: HPI narrative: Patient complaining of midsternal pain for last few days got worse today does have history of hiatal hernia and does get this pain but this pain is worse than before no left-sided chest pain no shortness a breath no diaphoresis Related Data Previous Rx's ?Medication ?Instructions ?Recorded leg brace (Knee Support Brace) #1 ea 06/28/20 Donut pillow #1 ea 10/10/21 docusate sodium 100 mg capsule 200 mg (2 x 100 mg) PO DAILY PRN 01/31/23 constipation #180 caps cholecalciferol (vitamin D3) 50 50 mcg PO DAILY 90 days #90 tabs 10/08/23 mcg (2,000 unit) tablet tramadol 50 mg tablet 50 mg PO Q8H PRN pain 30 days #90 10/11/23 tabs sertraline 100 mg tablet 100 mg PO DAILY #90 tabs 10/22/23 lorazepam 1 mg tablet 1 mg PO BID PRN agitation 90 days 01/07/24 #180 tabs lidocaine 5 % topical patch 1 patch topical DAILY PRN for pain 01/13/24 #30 patches omeprazole 20 mg capsule,delayed 40 mg (2 x 20 mg) PO DAILY #180 03/22/24 release caps chlorpheniramine-acetaminophen 2 1 tab PO Q4-6H PRN sinus symptoms 04/21/24 mg-325 mg tablet (Coricidin HBP #14 tabs Cold and Flu) buspirone 10 mg tablet 10 mg PO BID 90 days #180 tabs 06/02/24 lisinopril 10 mg tablet 10 mg PO DAILY #30 tabs 06/02/24 methocarbamol 500 mg tablet 500 mg PO BEDTIME PRN pain #30 tabs 06/02/24 sucralfate 1 gram tablet 1 g PO TID #90 tabs 08/06/24 Allergies Allergy/AdvReac Type Severity Reaction Status Date / Time No Known Allergies Allergy Verified 08/05/24 18:09 [No Known Allergies*] Review of Systems 2 Review of Systems: Yes all other systems are reviewed and are negative PMFSH Past Medical History Medical History Heart murmur Requires management of nerve block infusion Facial dermatitis Breast pain, right Epidermal inclusion cyst Knee pain, left Obesity (BMI 30-39.9) Hip pain, right Rotator cuff disorder Hypercholesterolemia Lumbar degenerative disc disease Anemia Vitamin D deficiency GERD (gastroesophageal reflux disease) Hypertension Bilateral carpal tunnel syndrome Primary osteoarthritis of hands, bilateral Avascular necrosis of right humeral head Hx of tendinitis Hx of diverticulitis of colon Surgical History History of removal of cyst Varicose veins of right lower extremity History of foot surgery Hx of rotator cuff surgery Hx of cholecystectomy Hx of abdominoplasty Hx of colonoscopy Hx of tubal ligation Family History Family History Father Hx of diabetes mellitus History of high cholesterol Mother Family hx of hypertension History of asthma Hx of heart disorder Brother Automobile accident Brother Suicide Family/Other No problems noted. Maternal Grandmother History of asthma Paternal Grandfather No problems noted. 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 Oriented X3. No acute distress. Eyes: PERRLA, No Nystagmus ENT: Pharynx normal. Oral Mucosa moist Neck: Normal inspection. Neck supple. CVS: Normal heart rate and rhythm. Pulses normal. Respiratory: No respiratory distress. Equal air entry bilateral, no wheezing/rales/rhonchi Abdomen: Soft and tender at epigastric area Bowel sounds are present, no mass palpable, no CVA tenderness Skin: Skin warm and dry. Normal skin color. Normal skin turgor. Extremities: No lower extremity edema. No calf tenderness Neuro: Oriented X 3. No motor deficit. No sensory deficit.No cerebellar signs , cranial nerves II-XII intact Course Course Course Narrative: This is a Rapid Medical Examination (RME) performed by Hayley Rosis PA-C in triage. Full HPI, ROS, assessment and treatment plan per primary provider in the Main ED. 54 yo female hx of GERD here for eval of epigastric/ midsternal chest pressure, radiating up to her throat which began while lying in bed this morning and continued throughout the day. takes omeprazole daily. Plan: labs, ekg Medications Administered Discontinued Medications Generic Name Dose Route Start Last Admin Trade Name Freq PRN Reason Stop Dose Admin Al Hydroxide/Mg Hydroxide 30 ml 08/05/24 23:58 08/06/24 00:25 Magnesium Hydrox/Alum Hydrox 30 Ml Oral.Susp PO 08/05/24 23:59 30 ml ONCE ONE Administration Lidocaine HCl 15 ml 08/05/24 23:58 08/06/24 00:25 Lidocaine Hcl Viscous 2 % 15 Ml Solution MUCOUS MEM 08/05/24 23:59 15 ml ONCE ONE Administration Medical Decision Making Medical Decision Making [facility] Narrative: Patient with mid sternal pain with history of hiatal hernia 2 sets of cardiac enzymes negative likely from hiatal hernia will give Maalox and lidocaine viscous re-evaluate patient is status post cholecystectomy , patient felt much better after Maalox pain is almost gone will discharge patient home on sucralfate, 2 sets of cardiac enzymes negative Differential Diagnosis Differential Diagnoses: The differential diagnosis associated with the presentation includes ACS/atypical chest pain//hiatal hernia/gastritis Admission/Observation Consideration of admission/observation: Escalation of care including admission/observation considered Lab Data [facility] Lab Attestation statement: I reviewed the patient's lab results. 08/05/24 18:23 08/05/24 18:23 Labs: Lab Results 08/05/24 08/05/24 Range/Units 18:23 23:14 WBC 10.9 H (4.8-10.8) X10*3/uL RBC 4.18 L (4.20-5.50) X10*6/uL Hgb 11.8 L (12.0-16.0) g/dl Hct 35.9 L (37.0-47.0) % MCV 85.9 (80.0-98.0) fL MCH 28.2 (27.0-33.0) pg MCHC 32.9 (31.0-35.0) g/dl RDW 14.4 (11.0-16.0) % Plt Count 335 (160-400) X10*3/uL MPV 9.8 (9.4-12.3) fL Immature Gran % (Auto) 0.4 (0.0-0.4) % Neut % (Auto) 64.1 (45-73) % Lymph % (Auto) 26.5 (20-40) % Bath % (Auto) 6.5 (2-11) % Eos % (Auto) 2.0 (0-4) % Baso % (Auto) 0.5 (0-2) % Lymph # (Auto) 2.9 (1.2-4.9) X10*3/uL Bath # (Auto) 0.7 (0.1-1.2) X10*3/uL Eos # (Auto) 0.2 (0.0-0.4) X10*3/uL Baso # (Auto) 0.1 (0.0-0.2) X10*3/uL Abs Immat Gran (auto) 0.04 H (0.00-0.03) X10*3/uL Absolute Neuts (auto) 7.0 (2.0-8.3) x10*3/uL Absolute Nucleated RBC 0.000 (0.0-0.012) X10*3/uL Nucleated RBC % (auto) 0.0 (0.0-0.2) /100WBC Sodium 138 (135-145) mmol/L Potassium 3.9 (3.3-5.1) mmol/L Chloride 106 (96-108) mmol/L Carbon Dioxide 25 (22-29) mmol/L Anion Gap 11 L (12-20) BUN 10 (9-16) mg/dL Creatinine 0.76 (0.5-1.4) mg/dL Estim Creat Clear Calc 91.9 Estimated GFR > 60 Random Glucose 108 (60-115) mg/dL Calcium 9.0 D (8.4-10.2) mg/dL Magnesium 1.9 (1.6-2.6) mg/dL Total Bilirubin 0.2 (0.0-1.0) mg/dL AST 17 (5-31) U/L ALT 15 (0-31) U/L Alkaline Phosphatase 77 (39-117) U/L Troponin I High Sens < 2.7 < 2.7 (<3.5-17.0) ng/L Total Protein 7.1 (6.5-8.0) g/dL Albumin 3.7 (3.5-5.0) g/dL Lipase 26 (8-78) U/L Independent Interpretation I performed an independent interpretation of an: EKG Interpretation: Normal sinus rhythm heart rate 88 beats per minute normal interval normal axis no acute ST-T changes no acute ischemia Discharge Plan Discharge Clinical Impression: Chest pain due to GERD Patient Disposition: Home, Self-Care Instructions: Chest Pain (ED), Gastroesophageal Reflux Disease (ED) Additional Instructions: Your chest pain is likely from hiatal hernia/gastritis Continue your omeprazole Start taking sucralfate 1 tablet half an hour before meals Avoid fried foods Drink plenty of fluids Follow up with your PCP if not better Prescriptions: New sucralfate 1 gram tablet 1 g PO TID Qty: 90 0RF No Action docusate sodium 100 mg capsule 200 mg PO DAILY PRN (Reason: constipation) Qty: 180 3RF cholecalciferol (vitamin D3) 50 mcg (2,000 unit) tablet 50 mcg PO DAILY 90 Days Qty: 90 3RF tramadol 50 mg tablet 50 mg PO Q8H PRN (Reason: pain) 30 Days Qty: 90 2RF sertraline 100 mg tablet 100 mg PO DAILY Qty: 90 2RF lorazepam 1 mg tablet 1 mg PO BID PRN (Reason: agitation) 90 Days Qty: 180 1RF omeprazole 20 mg capsule,delayed release(DR/EC) 40 mg PO DAILY Qty: 180 3RF buspirone 10 mg tablet 10 mg PO BID 90 Days Qty: 180 1RF lidocaine 5 % adhesive patch,medicated 1 patch topical DAILY PRN (Reason: for pain) Qty: 30 3RF Coricidin HBP Cold and Flu 2-325 mg tablet 1 tab PO Q4-6H PRN (Reason: sinus symptoms) Qty: 14 0RF methocarbamol 500 mg tablet 500 mg PO BEDTIME PRN (Reason: pain) Qty: 30 1RF (DME) Knee Support Brace Misc See Rx Instructions .MEDSUPPLY Qty: 1 0RF Rx Instructions: [id number] knee support (DME) Donut pillow Misc See Rx Instructions .Route Qty: 1 0RF Rx Instructions: As directed lisinopril 10 mg tablet 10 mg PO DAILY Qty: 30 3RF Interventions: ED Discharge Assessment Last Done: 08/06/24 00:36 Discharge Date/Time: 08/06/24 00:52 Print Language: Georgian
[2024-08-05 18:28] LABS: MANUAL DIFF FLAG NO
[2024-08-05 18:32] LABS: Basophils Absolute Auto 0.1 X10*3/uL (0.0-0.2); Basophils Percent Auto 0.5 % (0-2); Eosinophils Absolute Auto 0.2 X10*3/uL (0.0-0.4); Hematocrit 35.9 % (37.0-47.0); Hemoglobin 11.8 g/dl (12.0-16.0); Imm Gran Abs Auto 0.04 X10*3/uL (0.00-0.03); Imm Gran Pct Auto 0.4 % (0.0-0.4); Lymphocytes Absolute Auto 2.9 X10*3/uL (1.2-4.9); Lymphocytes Percent Auto 26.5 % (20-40); Mean Corpuscular HGB Conc 32.9 g/dl (31.0-35.0); Mean Corpuscular Hemoglobin 28.2 pg (27.0-33.0); Mean Corpuscular Volume 85.9 fL (80.0-98.0); Mean Platelet Volume 9.8 fL (9.4-12.3); Monocytes Absolute Auto 0.7 X10*3/uL (0.1-1.2); Monocytes Percent Auto 6.5 % (2-11); Neutrophils Percent Auto 64.1 % (45-73); Platelet Count 335 X10*3/uL (160-400); Red Blood Count 4.18 X10*6/uL (4.20-5.50); Red Cell Distribution Width 14.4 % (11.0-16.0); White Blood Count 10.9 X10*3/uL (4.8-10.8)
[2024-08-05 18:52] LABS: Alanine Aminotransferase 15 U/L (0-31); Albumin Level 3.7 g/dL (3.5-5.0); Alkaline Phosphatase 77 U/L (39-117); Anion Gap 11 (12-20); Aspartate Amino Transferase 17 U/L (5-31); Bilirubin Total 0.2 mg/dL (0.0-1.0); Blood Urea Nitrogen 10 mg/dL (9-16); Carbon Dioxide 25 mmol/L (22-29); Chloride 106 mmol/L (96-108); Creatinine Clr Calc Pharmacy 91.9; Estimated Glomerular Filt Rate > 60; Glucose Random 108 mg/dL (60-115); Lipase 26 U/L (8-78); Magnesium 1.9 mg/dL (1.6-2.6); Potassium 3.9 mmol/L (3.3-5.1); Sodium 138 mmol/L (135-145); Total Protein 7.1 g/dL (6.5-8.0)
[2024-08-05 19:00] LABS: Troponin-I High Sensitivity < 2.7 ng/L (<3.5-17.0)
[2024-08-05 22:49] VITALS: PULSE 73
[2024-08-05 23:00] VITALS: BP 117/70; PULSE 74; RESP 18; TEMP 36.8; O2SAT 99
[2024-08-05 23:49] LABS: Troponin-I High Sensitivity < 2.7 ng/L (<3.5-17.0)
[2024-08-06] MEDS: Magnesium Hydrox/Alum Hydrox 30 ML ORAL.SUSP PO (00:25)
[2024-08-06] MEDS: Lidocaine HCl Viscous 2 % 15 ML SOLUTION MUCOUS MEM (00:25)
[2024-08-06 00:36] VITALS: BP 117/70; PULSE 74; RESP 18; TEMP 36.8; O2SAT 99
== END 2024-08-06 00:52 | disposition home or self-care (01) ==
PROVIDERS: Physician Assistant Medical; Emergency Provider Internal Medicine; PCP Internal Medicine
DX: R07.89 Other chest pain (principal); K21.9 Gastro-esophageal reflux disease without esophagitis; E78.00 Pure hypercholesterolemia, unspecified; I10 Essential (primary) hypertension; Z87.891 Personal history of nicotine dependence; Z79.899 Other long term (current) drug therapy
CPT/HCPCS: 36415; 80053; 83690; 83735; 84484; 85025; 93005; 99283; 99285

== ENCOUNTER → 2024-08-05 18:02 | Outpatient (BNV) | payer BC, SELFPAY | PROVIDERS: Emergency Provider Internal Medicine; PCP Internal Medicine; Visit Provider Internal Medicine Cardiovascular Disease | DX: R07.9 Chest pain, unspecified (principal) | CPT/HCPCS: 93010 ==

== ENCOUNTER 2024-08-29 09:54 | Outpatient (AMB) | payer BC, SELFPAY ==
[2024-08-29 10:05] VITALS: BP 140/80; PULSE 81; TEMP 36.6; O2SAT 98; BMI 35.8
--- NOTE | 2024-08-29 10:05 | MHC.OFFWIV ---
Intake Vital Signs 08/29/24 10:05 Height 5 ft 3 in Weight 202 lb 2 oz BMI 35.8 BP 140/80 H Blood Pressure Location Lt brachial Position Sitting Pulse 81 Pulse Source Pulse Oximeter Temp 97.9 F Temp Source Oral Pulse Oximetry (%) 98 Oxygen Delivery Method Room Air Intake Visit Reasons: EP belly ache, nausea, head ache Intake Note: Pt presents to the office today for c/o stomach pain,nausea, and a headache x3 days. Patient Tobacco Use Status: Former Tobacco user Allergies No Known Allergies [No Known Allergies*] Allergy (Verified 08/29/24 10:08) HPI HPI Comments History of Present Illness Details History of Present Illness - The patient is a 54-year-old female presenting with gastrointestinal symptoms. - The symptoms commenced with nausea and singular vomiting episode this morning. - Diarrhea has started to occur, being non-bloody and non-black. Denies fevers. - A potential viral cause is considered given that both her grandson previously showed similar symptoms and her is currently experiencing the same. - Anticipation of work absence has been discussed due to the illness severity impacting both the patient and her spouse. Physical Exam General: Cooperative, healthy appearing, comfortable, no acute distress and well developed Orientation: Patient oriented x3 Limitations: No limitations Head: Normal to inspection Ears: Hearing grossly normal bilaterally Nose: Normal external nose present Face and sinus: Normal facial exam Eyes: Appearance normal, both eyes and all related structures Neck: Normal visual inspection and Yes full ROM Respiratory: Normal respiratory effort and able to speak in complete sentences. Skin: No rashes or lesions noted Neuro: Patient oriented x3 Extremities: Normal to inspection [facility] Medical History Heart murmur Requires management of nerve block infusion Facial dermatitis Breast pain, right Epidermal inclusion cyst Knee pain, left Obesity (BMI 30-39.9) Hip pain, right Rotator cuff disorder Hypercholesterolemia Lumbar degenerative disc disease Anemia Vitamin D deficiency GERD (gastroesophageal reflux disease) Hypertension Bilateral carpal tunnel syndrome Primary osteoarthritis of hands, 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 Maternal Grandmother History of asthma Paternal Grandfather No problems noted. 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 Cognitive needs: No Hearing needs: No Vision needs: Yes Female Reproductive History Menstrual Age of Menarche: 15 Review of Systems Const All systems reviewed & are unremarkable except as noted in HPI and below Physical Exam Vital Signs: Last Vital Signs Temp 97.9 F 08/29/24 10:05 Pulse 81 08/29/24 10:05 BP 140/80 H 08/29/24 10:05 Pulse Ox 98 08/29/24 10:05 Oxygen Delivery Method Room Air 08/29/24 10:05 BMI result Body Mass Index 35.8 Assessment & Plan Assessment & Plan (1) Viral gastroenteritis: Code(s): A08.4 - Viral intestinal infection, unspecified Plan: The patient is advised to manage the gastrointestinal symptoms with hydration using Pedialyte Popsicles and modifying the diet to include bananas, rice, apples, tea, and toast according to a BRAT diet. No complications such as blood or black discoloration in stools were reported, suggesting a steady non-complex course of acute gastroenteritis. A viral etiology is considered, influenced by symptomatic presentation in household contacts, emphasizing the need for transmission precautions. The patient is advised on work absence, which may be documented at the dental front office assistant to ensure sufficient recovery time. Okay for work note for 5 days Patient was informed and verbally consented to the use of an ambient scribe for clinic note documentation during this visit. Medications: New ondansetron 4 mg PO Q8H PRN 10 tabs 0RF nausea and vomiting Coding Level of Care Code Est Pt Level 3 (30606) Diagnoses Viral gastroenteritis A08.4
== END 2024-08-29 10:38 | disposition home or self-care (01) ==
PROVIDERS: PCP Internal Medicine; Visit Provider Physician Assistant
DX: A08.4 Viral intestinal infection, unspecified (principal)

== ENCOUNTER → 2024-08-29 09:54 | Outpatient (BNVA) | payer BC, SELFPAY | PROVIDERS: PCP Internal Medicine; Visit Provider Physician Assistant | DX: A08.4 Viral intestinal infection, unspecified (principal) ==

== ENCOUNTER 2024-09-16 08:47 | Outpatient (REF) | payer BC, SELFPAY ==
[2024-09-16 09:56] LABS: MANUAL DIFF FLAG NO
[2024-09-16 10:52] LABS: Basophils Percent Auto 0.4 % (0-2); Eosinophils Absolute Auto 0.2 X10*3/uL (0.0-0.4); Eosinophils Percent Auto 2.6 % (0-4); Hematocrit 35.9 % (37.0-47.0); Hemoglobin 11.7 g/dl (12.0-16.0); Imm Gran Abs Auto 0.02 X10*3/uL (0.00-0.03); Imm Gran Pct Auto 0.3 % (0.0-0.4); Lymphocytes Percent Auto 28.5 % (20-40); Mean Corpuscular HGB Conc 32.6 g/dl (31.0-35.0); Mean Corpuscular Hemoglobin 28.3 pg (27.0-33.0); Mean Corpuscular Volume 86.7 fL (80.0-98.0); Mean Platelet Volume 10.3 fL (9.4-12.3); Monocytes Absolute Auto 0.5 X10*3/uL (0.1-1.2); Monocytes Percent Auto 7.7 % (2-11); Neutrophils Absolute Auto 4.1 x10*3/uL (2.0-8.3); Neutrophils Percent Auto 60.5 % (45-73); Platelet Count 331 X10*3/uL (160-400); Red Blood Count 4.14 X10*6/uL (4.20-5.50); White Blood Count 6.9 X10*3/uL (4.8-10.8)
[2024-09-16 11:10] LABS: Estimated Average Glucose 114 mg/dL; Hemoglobin A1C 115.7848 umol/L; Hemoglobin A1c % 5.6 % (<6.0)
[2024-09-16 11:23] LABS: Appearance Urine Clear; Color Urine Yellow; Glucose Urine UA Negative (Negative); Leukocyte Esterase Urine Negative (Negative); Nitrite Urine Negative (Negative); PH 5.5 (5.0-9.0); Specific Gravity - Urine 1.025 (1.005-1.025); Urine Blood Negative (Negative); Urine Ketones Negative (Negative); Urine Protein Negative (Neg-Trace)
[2024-09-16 11:47] LABS: Alanine Aminotransferase 14 U/L (0-31); Albumin Level 3.7 g/dL (3.5-5.0); Alkaline Phosphatase 75 U/L (39-117); Anion Gap 10 (12-20); Aspartate Amino Transferase 19 U/L (5-31); Bilirubin Total 0.4 mg/dL (0.0-1.0); Blood Urea Nitrogen 11 mg/dL (9-16); Carbon Dioxide 26 mmol/L (22-29); Chloride 108 mmol/L (96-108); Cholesterol 221 mg/dL (<200); Estimated Glomerular Filt Rate > 60; Glucose Random 82 mg/dL (60-115); HDL Cholesterol 46 mg/dL (>40); LDL Cholesterol Calculated 140 mg/dL (<100); Potassium 4.3 mmol/L (3.3-5.1); Sodium 140 mmol/L (135-145); Total Protein 7.3 g/dL (6.5-8.0); Triglycerides 178 mg/dL (<150)
[2024-09-16 12:05] LABS: Free T4 (Free Thyroxine) 0.82 ng/dL (0.71-1.85); Thyroid Stimulating Hormone 1.24 uIU/mL (0.32-4.0); Vitamin D 25-OH Total 30.9 ng/mL (>30)
== END 2024-09-16 08:48 | disposition home or self-care (01) ==
LOC: HO.LAB 08:47
PROVIDERS: PCP Internal Medicine; Visit Provider Internal Medicine
DX: E78.00 Pure hypercholesterolemia, unspecified (principal); R30.0 Dysuria; Z13.1 Encounter for screening for diabetes mellitus
CPT/HCPCS: 36415; 80053; 80061; 81003; 82306; 83036; 84439; 84443; 85025

== ENCOUNTER 2024-09-18 13:04 | Outpatient (AMB) | payer BC, SELFPAY ==
[2024-09-18 13:15] VITALS: BP 140/80; PULSE 81; O2SAT 97; BMI 35.4
--- NOTE | 2024-09-18 13:15 | MHC.PC.OV ---
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 Accompanied by: Self / Same As Patient Allergies No Known Allergies [No Known Allergies*] Allergy (Verified 09/18/24 13:20) Tobacco use date assessed: 09/18/24 Dental Screening Dental Screen Date: 09/18/24 Did you have a dental visit in the last 12 months?: Yes Did you have a dental problem in the last 6 months where you did not have access to dental care?: No Was dental information given to patient?: Patient has dentist HPI HTN , GILSON HPI Details The patient is a 54-year-old female presenting with a follow-up for her chronic conditions, including obesity, essential hypertension, GERD, hypercholesterolemia, knee osteoarthritis, and anemia. She also reports recent symptoms of chest pain and diminished appetite. The patient has a history of essential hypertension, currently managed with lisinopril 10 mg daily. She visited the ER in July 2024 for chest pain, diagnosed as GERD. Recently, she experienced an episode at work with a sudden onset of chest heaviness and difficulty breathing, resulting in an ambulance call. The episode was characterized by elevated blood pressure at 184 mmHg systolic. Her GERD has been managed with omeprazole; however, she now presents with gastrointestinal discomfort, including a sensation of choking after eating, and bloating. Her last colonoscopy in February 2023 revealed a tubular adenoma, and she has been experiencing mild gastritis as noted in previous scopes. She also complains of chronic anemia, with a recent hemoglobin of 11.7 g/dL, which has been stable over her prior visits. The patient also noted an episode of gastroenteritis attributed to norovirus, experienced approximately two to three weeks ago, characterized by stomach pain without diarrhea. She reports her cholesterol levels have improved slightly with the current LDL at 140 mg/dL and triglycerides at 178 mg/dL, though they remain above the desired targets. Her HDL has improved from 41 to 46 mg/dL. Blood pressure at the clinic visit was 138/80 mmHg. [facility] Medical History (Updated 09/18/24 @ 13:58 by Mian Haynes MD) Chest pain Fall Coccyxdynia Myofascial low back pain Lump of skin Traumatic hematoma of buttock Colon cancer screening Bilateral knee pain Bilateral hand pain Viral upper respiratory illness Brain mass Epidermoid cyst of brain Dizziness Facial dermatitis Facial dermatitis Breast pain, right Knee pain, left Epidermal inclusion cyst Heart murmur Requires management of nerve block infusion Obesity (BMI 30-39.9) Hip pain, right Rotator cuff disorder Hypercholesterolemia Lumbar degenerative disc disease Anemia Vitamin D deficiency GERD (gastroesophageal reflux disease) Hypertension Bilateral carpal tunnel syndrome Primary osteoarthritis of hands, 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 Maternal Grandmother History of asthma Paternal Grandfather No problems noted. 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 1. Little interest or pleasure in doing things: not at all 2. Feeling down, depressed, or hopeless: several days 3. Trouble falling or staying asleep, or sleeping too much: not at all 4. Feeling tired or having little energy: not at all 5. Poor appetite or overeating: not at all 6. Feeling bad about yourself - or that you are a failure or have let yourself or your family down: not at all 7. Trouble concentrating on things, such as reading the newspaper or watching television: not at all 8. Moving or speaking so slowly that other people could have noticed. Or the opposite - being so fidgety or restless that you have been moving around a lot more than usual: not at all 9. Thoughts that you would be better off or of hurting yourself in some way: not at all Total score: 1 Source: Developed by Drs. Duane Oliveros, Ludy Truong, Junito Zavala and colleagues, with an educational preeti from [employer]. Thrive Questionnaire Date Thrive assessed: 09/18/24 I am a: Patient What is your living situation today?: I have a steady place to live Within the past 12 months, did the food you bought not last and you didn't have the money to get more?: Sometimes True Within the past 12 months, did you worry whether your food would run out before you got money to buy more?: I choose not to answer this question Do you have trouble paying for medicines?: No Do you have trouble getting transportation to medical appointments?: No Do you have trouble paying your heating and electricity bill?: No Do you have trouble taking care of your child, family member or friend?: No Do you have trouble with day-to-day activities such as bathing, preparing meals, shopping, managing finances, etc.?: I choose not to answer this question Are you currently unemployed and looking for a job?: No Are you interested in more education?: No Please select the resources that you would like help with: None Currently or been in a relationship where the following occur: No concerns reported THRIVE Score: 1 AUDIT C Alcohol Use Questionnaire (AUDIT-C) 1. How often do you have a drink containing alcohol?: Monthly or less 2. How many drinks containing alcohol do you have on a typical day when you are drinking?: 1 or 2 3. How often do you have six or more drinks on one occasion?: Never Total Score: 1 GILSON-7 AMB Questionnaire GILSON-7 Date GILSON - 7 assessed: 02/10/25 Feeling nervous, anxious, or on edge: 1 = Several days Not being able to stop or control worryin = Not at all Worrying too much about different things: 0 = Not at all Trouble relaxin = Not at all Being so restless that it is hard to sit still: 0 = Not at all Becoming easily annoyed or irritable: 0 = Not at all Feeling afraid as if something awful might happen: 0 = Not at all Total GILSON-7 score (0-4 normal; 5-9 mild; 10-14 moderate; 15-21 severe): 1 Source: Developed by Drs. Duane Oliveros, Ludy Truong, Junito Zavala and colleagues, with an educational preeti from [employer]. Physical exam (Primary Care) Vital Signs: Last Vital Signs Pulse 81 09/18/24 13:15 BP 140/80 H 09/18/24 13:15 Pulse Ox 97 09/18/24 13:15 Oxygen Delivery Method Room Air 09/18/24 13:15 BMI result Body Mass Index 35.4 Tobacco/Smoking Status: Tobacco use Status Tobacco use date assessed 09/18/24 09/18/24 13:22 Patient Tobacco Use Status Former Tobacco user 09/18/24 13:22 Tobacco use type Cigarette 09/18/24 13:22 e-Cigarette/Vaping Use Former Use 09/18/24 13:22 PHQ-9: PHQ-9 Score PHQ-9: Total score 1 09/18/24 13:24 Thrive Assessment: Date of Thrive Assessment Date Thrive assessed 09/18/24 09/18/24 13:22 Currently or been in a relationship where the following occur: No concerns reported Const General: alert; No acute distress Eyes Conjunctivae: conjunctivae normal Resp Auscultation: clear to auscultation bilaterally Cardio Rate: regular rate Rhythm: regular rhythm GI Inspection: Yes normal to inspection Extrem General: Yes normal to inspection and No edema Coding Level of Care Code Est Pt Level 4 (18762) Complex EM visit Add On G2211 Diagnoses Essential hypertension I10 Hypertension type: essential hypertension Gastroesophageal reflux disease without esophagitis K21.9 Esophagitis presence: without esophagitis Hypercholesterolemia E78.00 Chest pain R07.9 Chest pain type: unspecified Assessment & Plan Assessment & Plan (1) Hypertension: Code(s): I10 - Essential (primary) hypertension Category: Medical Qualifiers: Hypertension type: essential hypertension Qualified Code(s): I10 - Essential (primary) hypertension Plan: Continue with blood pressure medication. Decrease salt intake and exercise on lisinopril 10 mg once a day (2) GERD (gastroesophageal reflux disease): Comment: Avoid culprits, remain upright 2-3 hours after eating, continue PPI month Avoid further weight gain Code(s): K21.9 - Gastro-esophageal reflux disease without esophagitis Category: Medical Qualifiers: Esophagitis presence: without esophagitis Qualified Code(s): K21.9 - Gastro-esophageal reflux disease without esophagitis Plan: Avoid the foods that causes that usually spicy foods, tomato products, juices, coffee, soda and foods that your sensitive to. After eating do not lie down, allow 3-4 hours before in lie down. And keep the head of bed above 30 degrees to avoid the acid from going up. (3) Hypercholesterolemia: Code(s): E78.00 - Pure hypercholesterolemia, unspecified Category: Medical Plan: Avoid fried foods, chicken skin, eggs, butter margarine, pastries and meat. Be it pork or beef they have a lot of cholesterol LDL goal of less than 130 and triglyceride of less than 150. (4) Chest pain: Code(s): R07.9 - Chest pain, unspecified Category: Medical Qualifiers: Chest pain type: unspecified Qualified Code(s): R07.9 - Chest pain, unspecified Plan - For obesity: Consider prescribing a stronger weight management medication, such as a dual-agonist that influences weight control. Discuss potential benefits and risks, monitoring for efficacy after three weeks, and managing any side effects such as nausea. - For essential hypertension: Continue with lisinopril 10 mg daily. Monitor blood pressure and adjust medication if necessary. - For GERD: Continue omeprazole as pre-existing management. Explore additional gastroenterology consultation referral. Monitor symptoms for any exacerbations or complications. - For hypercholesterolemia: Maintain diet and exercise regimen. Continuous monitoring of lipid profiles and discuss potential need for alternative lipid-lowering therapies. - For knee osteoarthritis: Conservative management with lifestyle modifications that support weight reduction and pain management. - For anemia, chronic: Monitor hemoglobin levels. Ensure dietary adequacy, including iron-rich foods. Further evaluation if the hemoglobin falls below threshold levels. - For chest pain episodes: Arrange for a stress test to evaluate cardiac etiology. Manage blood pressure during these episodes and consider alternative diagnostic evaluations if symptoms persist. - For tubular adenoma: Follow regular surveillance post-polypectomy and adherence to colorectal screening guidelines. - Preventative care: Ensure regular follow-up visits to monitor chronic conditions and preventive health screenings such as updated mammograms and consistent blood pressure checks. - Provide referrals to specialists as needed based on evaluation outcomes, especially for gastroenterology consultation. Orders: Orders CA stress test Today R07.9 - Chest pain, unspecified Referrals Gastroenterology Referral K21.9 - Gastro-esophageal reflux disease without esophagitis Medications: New tirzepatide (weight loss) (Zepbound) for 4 weeks 2.5 mg (0.5 mL) subcut QWEEK 2 mL 1RF E66.9 - Obesity, unspecified Refilled omeprazole 40 mg (2 x 20 mg) PO DAILY 180 caps 3RF K21.9 - Gastro-esophageal reflux disease without esophagitis
[2024-09-18 13:46] VITALS: BP 138/80
== END 2024-09-18 14:04 | disposition home or self-care (01) ==
PROVIDERS: PCP Internal Medicine; Visit Provider Internal Medicine
DX: I10 Essential (primary) hypertension (principal); K21.9 Gastro-esophageal reflux disease without esophagitis; E78.00 Pure hypercholesterolemia, unspecified; R07.9 Chest pain, unspecified

== ENCOUNTER → 2024-10-03 07:44 | Outpatient (REF) | payer BC, SELFPAY ==
--- NOTE | 2024-10-03 07:47 | CA_ITS ---
Acquisition Time: 2024-10-03 08:00:10 Total Exercise Time: 00:07:20 Test Indications: CP, SOB Medications: SEE H&P Protocol: ARTURO Max HR: 142 BPM 85% of Pred: 167 BPM Max BP: 174/70 mmHG Max Work Load: 9.0 METS Exercise Stress Test with exercise 7 mins 20 secs of Arturo Protocol, achieving 85% MPHR, with reports of mild SOB, no chest discomfort, with isolated PVCs, with normotensive response to exercise. Without EKG changes meeting criteria for ischemia. In recovery, breathing returned to baseline. Test reviewed with Dr. Spence. PS- Pt is symptomatic with the PVCs only; has the reporting symptoms of palpitation, SOB and chest pressure. Referred By: Mian Haynes Electronically Signed By: Braden Grossman
== END ==
LOC: HO.CARD 07:44
PROVIDERS: PCP Internal Medicine; Visit Provider Internal Medicine
DX: R07.9 Chest pain, unspecified (principal)
CPT/HCPCS: 93017

== ENCOUNTER → 2024-10-03 07:47 | Outpatient (BNV) | payer BC, SELFPAY | PROVIDERS: PCP Internal Medicine | DX: I49.3 Ventricular premature depolarization (principal); R06.02 Shortness of breath | CPT/HCPCS: 93016; 93018 ==

== ENCOUNTER → 2024-11-01 08:07 | Outpatient (REF) | payer BC, SELFPAY | LOC: HO.CARD 08:07 | PROVIDERS: PCP Internal Medicine; Visit Provider Internal Medicine | DX: R00.2 Palpitations (principal) | CPT/HCPCS: 93242 ==

== ENCOUNTER → 2024-11-01 08:10 | Outpatient (BNV) | payer BC, SELFPAY | PROVIDERS: PCP Internal Medicine; Visit Provider Internal Medicine | DX: I47.10 Supraventricular tachycardia, unspecified (principal) | CPT/HCPCS: 93244 ==

== ENCOUNTER 2024-11-25 08:25 | Outpatient (REF) | payer BC, SELFPAY | END 2024-11-25 08:26 | disposition home or self-care (01) | LOC: HO.MAMMO 08:25 | PROVIDERS: PCP Internal Medicine; Visit Provider Internal Medicine | DX: Z12.31 Encounter for screening mammogram for malignant neoplasm of breast (principal) | CPT/HCPCS: 77063; 77067 ==

== ENCOUNTER → 2024-11-25 08:45 | Outpatient (BNV) | payer BC, SELFPAY | PROVIDERS: PCP Internal Medicine; Visit Provider Internal Medicine | DX: Z12.31 Encounter for screening mammogram for malignant neoplasm of breast (principal) | CPT/HCPCS: 77063; 77067 ==

== ENCOUNTER 2024-12-13 16:02 | Outpatient (AMB) | payer BC, SELFPAY ==
--- NOTE | 2024-12-13 16:11 | MHC.OFFVIS ---
Vital Signs 12/13/24 16:13 Height 5 ft 3 in Weight 188 lb BMI 33.3 BP 142/68 H Blood Pressure Location Rt brachial Position Sitting Pulse 86 Pulse Source Pulse Oximeter Pulse Oximetry (%) 98 Oxygen Delivery Method Room Air Intake Visit Reasons: Gastroesophageal reflux disease (GERD) Intake Note: ESTABLISHED PATIENT for re-est care. KAREEN w/ MAKEDA 07/22/2023. Labs last done 09/2024. Last colo in 2022 w/ RM. Chief Complaint; C/O epigastric pain, occasional burning of the esophagus per GERD, raw / irritated throat. Pt reports she is still taking her PPI but it is not as effective as it used to be. Pt is taking zepbound currently per PCP. Pt denies any additional sx or concerns at this time. 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 Abstain from alcohol Opportunity for questions, answered to her satisfaction was present, with questions as well Encouraged to call with any concerns or further questions TODAY'S VISIT: Patient is here today for follow-up and for request. Her previous GI provider no longer in the practice. Patient had upper GI series done last year and it showed disorganized peristalsis and possible thickening of the gastric flow suggesting gastritis. Patient is on PPI and reports that she is not feeling any better. Patient states that it for short time at work but currently is no longer working. Patient had colonoscopy in 2022 3-5 year follow-up recommended. Patient reports epigastric pain postprandially. Patient feels like sometimes no matter what she eats she has discomfort. Reports postprandial abdominal bloating. Patient reports that she is moving her bowels daily for the most part. Denies melena, hematochezia. Reports dyspepsia without dysphagia or odynophagia. Patient did not change her diet. She continues to eat mostly Armenian food. Patient tries to eat vegetables not drinking enough water. [facility] Medical History Chest pain Fall Coccyxdynia Myofascial low back pain Lump of skin Traumatic hematoma of buttock Colon cancer screening Bilateral knee pain Bilateral hand pain Viral upper respiratory illness Brain mass Epidermoid cyst of brain Dizziness Facial dermatitis Facial dermatitis Breast pain, right Knee pain, left Epidermal inclusion cyst Heart murmur Requires management of nerve block infusion Obesity (BMI 30-39.9) Hip pain, right Rotator cuff disorder Hypercholesterolemia Lumbar degenerative disc disease Anemia Vitamin D deficiency GERD (gastroesophageal reflux disease) Hypertension Bilateral carpal tunnel syndrome Primary osteoarthritis of hands, 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 Maternal Grandmother History of asthma Paternal Grandfather No problems noted. 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 Cognitive needs: No Hearing needs: No Vision needs: Yes Female Reproductive History Menstrual Age of Menarche: 15 Review of Systems Const Denies weight gain and Denies weight loss ENT Reports no additional complaints, Denies dysphagia and Denies odynophagia Card Reports no additional complaints Resp Reports no additional complaints GI Reports abdominal pain (Epigastric), Denies belching, Denies melena, Reports bloating, Denies change in bowel habits, Reports constipation (Occasional), Denies dysphagia, Denies excessive flatus, Reports dyspepsia, Reports heartburn, Denies diarrhea, Denies loose stools, Denies nausea, Denies odynophagia and Denies vomiting Reports no additional complaints Musc Reports no additional complaints Neuro Reports no additional complaints Psych Reports no additional complaints Endo Reports no additional complaints Physical Exam Vital Signs: Last Vital Signs Pulse 86 12/13/24 16:13 BP 142/68 H 12/13/24 16:13 Pulse Ox 98 12/13/24 16:13 Oxygen Delivery Method Room Air 12/13/24 16:13 BMI result Body Mass Index 33.3 Const General: healthy appearing, no acute distress and well developed Nutritional Appearance: well nourished Orientation/consciousness: patient oriented x3 Resp Effort & Inspection: normal respiratory effort, able to speak in complete sentences, no tracheal deviation and symmetric chest movement Auscultation: clear to auscultation bilaterally Cardio Rate: regular rate GI Inspection: Yes normal to inspection and No distended Palpation (GI): Soft to palpation, not firm, nontender and No hepatosplenomegaly present Auscultation: normal bowel sounds General: Yes no CVA tenderness Back/Spine/Pelvis Back: no CVA tenderness Skin General skin exam: elasticity normal, turgor normal and dry skin Neuro General: patient oriented x3 Psych Appearance: grossly normal Mental Status: mental status grossly normal Results Reviewed Results Reviewed: UPPER GI SERIES 03/22/2024 IMPRESSION: 1. Mild cricopharyngeal achalasia. 2. Mildly disorganized esophageal peristalsis. 3. Small type I hiatal hernia. 4. Status post cholecystectomy. 5. Limited evaluation of the gastric mucosa due to underdistention of the stomach from poor tolerance of the effervescent granules. The gastric rugal folds have a thickened appearance, which suggests gastritis, however, may be also due to underdistention of the stomach. Assessment & Plan Assessment & Plan (1) GERD (gastroesophageal reflux disease): Code(s): K21.9 - Gastro-esophageal reflux disease without esophagitis Category: Medical Qualifiers: Esophagitis presence: without esophagitis Qualified Code(s): K21.9 - Gastro-esophageal reflux disease without esophagitis (2) Postprandial abdominal bloating: Code(s): R14.0 - Abdominal distension (gaseous) (3) Postprandial epigastric pain: Code(s): R10.13 - Epigastric pain (4) Constipation: Code(s): K59.00 - Constipation, unspecified Qualifiers: Constipation type: slow transit constipation Qualified Code(s): K59.01 - Slow transit constipation Plan Patient will stop omeprazole will put her on famotidine twice a day. Patient will return to the office in 2 weeks to check H pylori. Will be treated empirically if positive. Patient will start taking lansoprazole after her breath test. Continue avoiding dietary triggers of late night snacking. Staying upright for minimal 3 hours after meals discussed with patient. Will check transglutaminase and lipase. Patient will return in 3 months to be re-evaluated. Patient was encouraged to increase fluid intake and activity to promote better bowel motility. She is agreeable to current plan of care and verbalizes understanding of instructions. She was given the opportunity to ask questions and all questions answered. Her colonoscopy will be due in 2022. Patient will call our office if he will have worsening symptoms. She is agreeable to current plan of care and verbalizes understanding of instructions. She was given the opportunity to ask questions and all questions answered. Thank you for allowing me to participate in her care Orders: Orders H Pylori Breath Test 12/13/24 K21.9 - Gastro-esophageal reflux disease without esophagitis Transglutaminase IgA 12/13/24 R10.9 - Unspecified abdominal pain Lipase 12/13/24 R10.9 - Unspecified abdominal pain Medications: New famotidine (Pepcid) 20 mg PO BID 30 tabs 0RF K29.70 - Gastritis, unspecified, without bleeding lansoprazole 30 mg PO DAILY 30 tabs 3RF simethicone (Gas Relief (simethicone)) 125 mg PO TID-QID PRN 120 caps 2RF abdominal distention Discontinued omeprazole Discontinued Reason: Doctor's Order 40 mg (2 x 20 mg) PO DAILY 180 caps 3RF K21.9 - Gastro-esophageal reflux disease without esophagitis Coding Level of Care Code Est Pt Level 4 (77934) Complex EM visit Add On G2211 Diagnoses Gastroesophageal reflux disease without esophagitis K21.9 Esophagitis presence: without esophagitis Postprandial abdominal bloating R14.0 Postprandial epigastric pain R10.13 Slow transit constipation K59.01 Constipation type: slow transit constipation Time Spent (min) 40 Comment 25 minutes spent with patient and additional 15 minutes spent reviewing her records
[2024-12-13 16:13] VITALS: BP 142/68; PULSE 86; O2SAT 98; BMI 33.3
== END 2024-12-13 16:44 | disposition home or self-care (01) ==
LOC: HO.HGI 16:03
PROVIDERS: PCP Internal Medicine; Visit Provider Nurse Practitioner Family
DX: K21.9 Gastro-esophageal reflux disease without esophagitis (principal); R14.0 Abdominal distension (gaseous); R10.13 Epigastric pain; K59.01 Slow transit constipation
CPT/HCPCS: 99214

== ENCOUNTER → 2024-12-13 16:02 | Outpatient (BNVA) | payer BC, SELFPAY | PROVIDERS: PCP Internal Medicine; Visit Provider Nurse Practitioner Family | DX: Z13.89 Encounter for screening for other disorder (principal) ==

== ENCOUNTER 2024-12-25 15:53 | Outpatient (REF) | payer BC, SELFPAY ==
[2024-12-25 17:58] LABS: Cholesterol 177 mg/dL (<200); HDL Cholesterol 32 mg/dL (>40); LDL Cholesterol Calculated 82 mg/dL (<100); Lipase 42 U/L (8-78); Triglycerides 319 mg/dL (<150)
[2024-12-25 18:03] LABS: Free T4 (Free Thyroxine) 0.85 ng/dL (0.71-1.85); TSH reflex Free T4 4.06 uIU/mL (0.32-4.0)
[2024-12-25 18:34] LABS: Folate 8.1 ng/mL (> or = 4.0); Vitamin B12 572 pg/mL (200-900)
[2024-12-26 13:37] LABS: Transglutaminase IgA <1.0 U/mL
[2024-12-30 16:43] LABS: Vitamin D 25-OH, D2 <4 ng/mL; Vitamin D 25-OH, D3 30 ng/mL; Vitamin D 25-OH, Total 30 ng/mL (30-100)
== END 2024-12-25 15:54 | disposition home or self-care (01) ==
LOC: HO.LAB 15:53
PROVIDERS: PCP Internal Medicine; Visit Provider Nurse Practitioner Family
DX: Z00.00 Encounter for general adult medical examination without abnormal findings (principal); R10.9 Unspecified abdominal pain; E78.00 Pure hypercholesterolemia, unspecified
CPT/HCPCS: 36415; 80061; 82306; 82607; 82746; 83690; 84439; 84443; 86364

== ENCOUNTER 2024-12-26 14:03 | Outpatient (AMB) | payer BC, SELFPAY ==
--- NOTE | 2024-12-26 14:07 | MHC.PC.OV ---
Vital Signs 12/26/24 14:09 Height 5 ft 3 in Weight 187 lb BMI 33.1 BP 104/70 Blood Pressure Location Lt brachial Position Sitting Pulse 80 Pulse Source Pulse Oximeter Pulse Oximetry (%) 98 Oxygen Delivery Method Room Air Intake Visit Reasons: obesity, GILSON, gerd, Chest pain Allergies No Known Allergies [No Known Allergies*] Allergy (Verified 12/26/24 14:09) Tobacco use date assessed: 09/18/24 Dental Screening Dental Screen Date: 09/18/24 [facility] Medical History Chest pain Fall Coccyxdynia Myofascial low back pain Lump of skin Traumatic hematoma of buttock Colon cancer screening Bilateral knee pain Bilateral hand pain Viral upper respiratory illness Brain mass Epidermoid cyst of brain Dizziness Facial dermatitis Facial dermatitis Breast pain, right Knee pain, left Epidermal inclusion cyst Heart murmur Requires management of nerve block infusion Obesity (BMI 30-39.9) Hip pain, right Rotator cuff disorder Hypercholesterolemia Lumbar degenerative disc disease Anemia Vitamin D deficiency GERD (gastroesophageal reflux disease) Hypertension Bilateral carpal tunnel syndrome Primary osteoarthritis of hands, 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 Maternal Grandmother History of asthma Paternal Grandfather No problems noted. 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 1. Little interest or pleasure in doing things: more than half the days 2. Feeling down, depressed, or hopeless: several days 3. Trouble falling or staying asleep, or sleeping too much: several days 4. Feeling tired or having little energy: more than half the days 5. Poor appetite or overeating: nearly every day 6. Feeling bad about yourself - or that you are a failure or have let yourself or your family down: several days 7. Trouble concentrating on things, such as reading the newspaper or watching television: several days 8. Moving or speaking so slowly that other people could have noticed. Or the opposite - being so fidgety or restless that you have been moving around a lot more than usual: more than half the days 9. Thoughts that you would be better off or of hurting yourself in some way: not at all Total score: 13 Depression Screening Interpretation: Positive Depression Screening Done: Yes Source: Developed by Drs. Duane Oliveros, Ludy Truong, Junito Zavala and colleagues, with an educational preeti from [employer]. Thrive Questionnaire Date Thrive assessed: 12/26/24 I am a: Patient What is your living situation today?: I have a steady place to live Within the past 12 months, did the food you bought not last and you didn't have the money to get more?: Never true Within the past 12 months, did you worry whether your food would run out before you got money to buy more?: Never true Do you have trouble paying for medicines?: Yes Do you have trouble getting transportation to medical appointments?: No Do you have trouble paying your heating and electricity bill?: No Do you have trouble taking care of your child, family member or friend?: No Do you have trouble with day-to-day activities such as bathing, preparing meals, shopping, managing finances, etc.?: Yes Are you currently unemployed and looking for a job?: No Are you interested in more education?: No Please select the resources that you would like help with: None Currently or been in a relationship where the following occur: No concerns reported THRIVE Score: 0 AUDIT C Alcohol Use Questionnaire (AUDIT-C) 1. How often do you have a drink containing alcohol?: Never Total Score: 0 GILSON-7 AMB Questionnaire GILSON-7 Date GILSON - 7 assessed: 12/26/24 Feeling nervous, anxious, or on edge: 1 = Several days Not being able to stop or control worryin = Several days Worrying too much about different things: 1 = Several days Trouble relaxin = Nearly every day Being so restless that it is hard to sit still: 2 = More than half the days Becoming easily annoyed or irritable: 1 = Several days Feeling afraid as if something awful might happen: 1 = Several days Total GILSON-7 score (0-4 normal; 5-9 mild; 10-14 moderate; 15-21 severe): 10 Source: Developed by Drs. Duane Oliveros, Ludy Truong, Junito Zavala and colleagues, with an educational preeti from [employer]. Physical exam (Primary Care) Vital Signs: Last Vital Signs Pulse 80 12/26/24 14:09 BP 104/70 12/26/24 14:09 Pulse Ox 98 12/26/24 14:09 Oxygen Delivery Method Room Air 12/26/24 14:09 BMI result Body Mass Index 33.1 Tobacco/Smoking Status: Tobacco use Status Tobacco use date assessed 09/18/24 12/26/24 14:13 Patient Tobacco Use Status Former Tobacco user 12/26/24 14:13 Tobacco use type Cigarette 12/26/24 14:13 e-Cigarette/Vaping Use Former Use 12/26/24 14:13 PHQ-9: PHQ-9 Score PHQ-9: Total score 13 12/26/24 14:30 Depression Screening Interpretation: Positive Thrive Assessment: Date of Thrive Assessment Date Thrive assessed 12/26/24 12/26/24 14:13 Currently or been in a relationship where the following occur: No concerns reported Const General: alert; No acute distress Eyes Conjunctivae: conjunctivae normal Resp Auscultation: clear to auscultation bilaterally Cardio Rate: regular rate Rhythm: regular rhythm GI Inspection: Yes normal to inspection Extrem General: Yes normal to inspection and No edema Coding Level of Care Code Est Pt Level 4 (60645) Diagnoses Palpitation R00.2 Chest pain R07.9 Chest pain type: unspecified Obesity (BMI 30-39.9) E66.9 Hypercholesterolemia E78.00 Essential hypertension I10 Hypertension type: essential hypertension Generalized anxiety disorder F41.1 Gastroesophageal reflux disease without esophagitis K21.9 Esophagitis presence: without esophagitis Assessment & Plan Assessment & Plan (1) Palpitation: Code(s): R00.2 - Palpitations Category: Medical Plan: Holter done negative results. Patient states after decreasing caffeine the palpitations are better but continues to have episodes. Would like to hold off and any workup for now (2) Chest pain: Code(s): R07.9 - Chest pain, unspecified Category: Medical Qualifiers: Chest pain type: unspecified Qualified Code(s): R07.9 - Chest pain, unspecified Plan: Stress test done negative results (3) Obesity (BMI 30-39.9): Code(s): E66.9 - Obesity, unspecified Category: Medical Plan: Diet and exercise (4) Hypercholesterolemia: Code(s): E78.00 - Pure hypercholesterolemia, unspecified Category: Medical Plan: Avoid fried foods, chicken skin, eggs, butter margarine, pastries and meat. Be it pork or beef they have a lot of cholesterol (5) Hypertension: Code(s): I10 - Essential (primary) hypertension Category: Medical Qualifiers: Hypertension type: essential hypertension Qualified Code(s): I10 - Essential (primary) hypertension (6) Generalized anxiety disorder: Code(s): F41.1 - Generalized anxiety disorder Category: Medical (7) GERD (gastroesophageal reflux disease): Code(s): K21.9 - Gastro-esophageal reflux disease without esophagitis Category: Medical Qualifiers: Esophagitis presence: without esophagitis Qualified Code(s): K21.9 - Gastro-esophageal reflux disease without esophagitis Plan History of Present Illness The patient is a 54-year-old female presenting for a follow-up consultation related to chronic disease management and assessment of recent laboratory and diagnostic test results. She has a history of obesity, osteoarthritis, carpal tunnel syndrome, essential hypertension, hypercholesterolemia, gastroesophageal reflux disease, lumbar degenerative disc disease, and generalized anxiety disorder. Recent laboratory evaluations from September showed mild anemia, elevated cholesterol which has since improved, and a marginal elevation in thyroid-stimulating hormone levels that require continued observation. Her GERD is being controlled with famotidine following specialist input, and she is due for a diagnostic breath test shortly. Cardiovascular evaluations with both Holter monitoring and stress testing have not revealed significant arrhythmias or ischemic changes. Recent procedures like colonoscopy are current as of February 2023. Health Maintenance - Mammogram up to date as of November 2024. - Colonoscopy was completed in February 2023; next scheduled for November 2024. - Bloodwork in September 2024 showed cholesterol improvement and pending Vitamin D levels. - Patient advised to maintain a healthy diet and exercise to manage cholesterol and weight. - Thyroid function to be monitored with ongoing evaluation due to mildly elevated TSH. Social History - The patient has ceased consumption of caffeinated coffee, which has helped reduce palpitations. - No details provided regarding employment, housing, or family status. Review of Systems - Cardiovascular: Reports improved palpitations with avoidance of caffeinated beverages. - Gastrointestinal: Reports GERD currently managed with famotidine. - General: Denies new or worsening symptoms. - Neurological: Denies episodes of sleep apnea. - Other systems: Not discussed. Physical Exam Results - Labs: September bloodwork showed mild anemia (hemoglobin 11.7 g/dL, hematocrit 35.9%), cholesterol improved from 140 mg/dL to 82 mg/dL, elevated thyroid-stimulating hormone. - Tests: Holter monitor showed sinus rhythm, stress test in September showed no EKG changes. Plan I recommended maintaining her current treatment plans for existing health issues including hypertension, anxiety, GERD, and hypercholesterolemia. For GERD, the use of famotidine should continue while awaiting results from future diagnostic testing. The elevated thyroid-stimulating hormone will be closely observed with the potential for modifications in therapy pending follow-up labs. No additional cardiac intervention is warranted at this time based on the non-significant findings from both the Holter monitoring and stress testing, with a current focus on lifestyle changes to reduce associated cardiovascular risks. Regular follow-up laboratory work to evaluate anemia and vitamin levels in conjunction with routine screenings are set to occur at specified intervals, as part of her ongoing care plan. Patient was informed and verbally consented to the use of an ambient scribe for clinic note documentation during this visit. Discussion Notes During today's follow-up, we reviewed the patient's ongoing management of obesity, hypertension, GERD, and other chronic conditions. I emphasized the importance of continuing current medical management, combining lifestyle changes focusing on diet and exercise to further assist in reducing cardiovascular risks and managing weight. We discussed the significance of avoiding caffeine as it relates to minimizing palpitations, with noted improvements since such modifications. Future considerations included close monitoring of thyroid activity due to slightly elevated levels and evaluating for vitamin D sufficiency, waiting for pending lab results. Upcoming gastroenterology evaluations and continuity with regular screenings were also addressed. The patient was informed to seek medical attention should her symptoms worsen and assured her of scheduled follow-up appointments for further assessment and care coordination. Patient Instructions - Continue taking all prescribed medications as directed. - Avoid caffeinated beverages to help reduce heart palpitations. - Attend gastroenterology appointment for the breath test and follow any new instructions given there. - Monitor thyroid with upcoming lab work as planned. - Improve diet and exercise routine to manage weight and cholesterol levels. - Schedule any further recommended screenings or follow-ups as instructed. - Report any new or worsening symptoms immediately. - Ensure adherence to follow-up consultations and lab work in three months to monitor ongoing conditions. Orders: Orders Complete Blood Count Auto Diff 3 Months D64.9 - Anemia, unspecified Comprehensive Met. Panel 3 Months D64.9 - Anemia, unspecified Vitamin B12 and Folate 3 Months D64.9 - Anemia, unspecified Vitamin D 25-OH Total 3 Months D64.9 - Anemia, unspecified UA CC w/rflx Micro + Cult 3 Months D64.9 - Anemia, unspecified, R30.0 - Dysuria Ferritin 3 Months D64.9 - Anemia, unspecified Reticulocyte Count 3 Months D64.9 - Anemia, unspecified IRON PROFILE 3 Months D64.9 - Anemia, unspecified Free T4 (Free Thyroxine) 3 Months D64.9 - Anemia, unspecified Thyroid Stimulating Hormone 3 Months D64.9 - Anemia, unspecified Lipid Panel 3 Months D64.9 - Anemia, unspecified, E78.00 - Pure hypercholesterolemia, unspecified Medications: Changed From lorazepam 1 mg PO BID 90 days PRN 180 tabs 1RF agitation Z86.59 - Personal history of other mental and behavioral disorders To lorazepam 0.5 mg PO BID 90 days PRN 180 tabs 0RF agitation Z86.59 - Personal history of other mental and behavioral disorders Refilled tirzepatide (weight loss) for 4 weeks 7.5 mg (0.5 mL) subcut QWEEK 30 days 2.5 mL 1RF E66.9 - Obesity, unspecified cholecalciferol (vitamin D3) 50 mcg PO DAILY 90 days 90 tabs 3RF E55.9 - Vitamin D deficiency, unspecified tramadol 50 mg PO Q8H 30 days PRN 90 tabs 2RF pain M19.041 - Primary osteoarthritis, right hand, M19.042 - Primary osteoarthritis, left hand
[2024-12-26 14:09] VITALS: BP 104/70; PULSE 80; O2SAT 98; BMI 33.1
== END 2024-12-26 14:58 | disposition home or self-care (01) ==
LOC: HO.HMCH 14:03
PROVIDERS: PCP Internal Medicine; Visit Provider Internal Medicine
DX: R00.2 Palpitations (principal); R07.9 Chest pain, unspecified; E66.9 Obesity, unspecified; Z68.33 Body mass index [BMI] 33.0-33.9, adult; E78.00 Pure hypercholesterolemia, unspecified; I10 Essential (primary) hypertension; F41.1 Generalized anxiety disorder; K21.9 Gastro-esophageal reflux disease without esophagitis

== ENCOUNTER → 2024-12-26 14:03 | Outpatient (BNVA) | payer BC, SELFPAY | PROVIDERS: PCP Internal Medicine; Visit Provider Internal Medicine ==

== ENCOUNTER 2024-12-28 08:17 | Outpatient (AMB) | payer BC, SELFPAY ==
--- NOTE | 2024-12-28 08:30 | AM.OFFVISNUR ---
Intake Visit Reasons: H. Pylori Breath Test Allergies No Known Allergies [No Known Allergies*] Allergy (Verified 12/26/24 14:09) Nursing Note Patient presents for collection of H Pylori breath test. Patient has been fasting for 1 hour (nothing to eat, drink, no chewing gum or smoking) has not taken any antacid medication for at least 2 weeks and has no allergies to artificial sweeteners.?? Assessment & Plan Assessment & Plan (1) Chest pain: Code(s): R07.9 - Chest pain, unspecified Category: Medical Qualifiers: Chest pain type: unspecified Qualified Code(s): R07.9 - Chest pain, unspecified Plan Patient presents for collection of H Pylori breath test. Patient has been fasting for 1 hour (nothing to eat, drink, no chewing gum or smoking) has not taken any antacid medication for at least 2 weeks and has no allergies to artificial sweeteners.???This test checks for an overgrowth of bacteria in your stomach. We all have bacteria but some may have more than others. It is treatable. if the test comes back negative there is nothing else to do. If the test result is positive we will treat you with 2 antibiotics and a medication to decrease the acid in your stomach (PPI) for 2 weeks. Two weeks after you have completed the treatment we will retest you to make sure the overgrowth has resolved. Patient Instructions: Process for specimen collection and reason for testing was explained to the patient. Specimen collection. Patient instructed to take a deep breath and then exhale into the blue bag, filling it up as much as possible. Patient instructed to drink a mixture of water and the artificial sweetener with a straw. A 15 minute wait period was observed. Patient instructed to take a deep breath and then exhale into the pink bag, filling it up as much as possible.?? Coding Level of Care Code Established Pt Est Pt Level 1 (97295) Patient Type Established Medical Decision Making Straight Forward Diagnoses Chest pain R07.9 Chest pain type: unspecified
== END 2024-12-28 08:31 | disposition home or self-care (01) ==
LOC: HO.HGI 08:18
PROVIDERS: PCP Internal Medicine; Visit Provider Nurse Practitioner Family
DX: R07.9 Chest pain, unspecified (principal)

== ENCOUNTER 2024-12-28 08:17 | Outpatient (REF) | payer BC, SELFPAY ==
[2024-12-30 09:00] LABS: H Pylori Breath Test Negative (Negative)
== END 2024-12-28 08:18 | disposition home or self-care (01) ==
LOC: HO.LNP 08:17
PROVIDERS: PCP Internal Medicine; Visit Provider Nurse Practitioner Family
DX: K21.9 Gastro-esophageal reflux disease without esophagitis (principal)
CPT/HCPCS: 83013; 99211

== ENCOUNTER 2025-03-19 08:35 | Outpatient (AMB) | payer BC, SELFPAY ==
--- NOTE | 2025-03-19 08:38 | MHC.OFFVIS ---
Vital Signs 03/19/25 08:46 Height 5 ft 3 in Weight 166 lb BMI 29.4 BP 134/98 H Blood Pressure Location Rt brachial Position Sitting Pulse 82 Pulse Source Pulse Oximeter Pulse Oximetry (%) 100 Oxygen Delivery Method Room Air Intake Visit Reasons: 3 mo f/u Intake Note: Est pt for GERD mgmt. F/U from [facility] testing CC: C.O. epigastric pain / discomfort, bloating / gas. Pt states she can feel an abnormal bubbling or fizzing sensation intermittently. Card Room Manager Required: No Accompanied by: Self / Same As Patient Allergies No Known Allergies (No Known Allergies*) Allergy (Verified 03/19/25 08:39) HPI HPI 3 mo f/u: Details: LAST VISIT: GERD (gastroesophageal reflux disease) Postprandial abdominal bloating Postprandial epigastric pain Constipation Plan Patient will stop omeprazole will put her on famotidine twice a day. Patient will return to the office in 2 weeks to check H pylori. Will be treated empirically if positive. Patient will start taking lansoprazole after her breath test. Continue avoiding dietary triggers of late night snacking. Staying upright for minimal 3 hours after meals discussed with patient. Will check transglutaminase and lipase. Patient will return in 3 months to be re-evaluated. Patient was encouraged to increase fluid intake and activity to promote better bowel motility. She is agreeable to current plan of care and verbalizes understanding of instructions. She was given the opportunity to ask questions and all questions answered. Her colonoscopy will be due in 2025. Patient will call our office if he will have worsening symptoms. She is agreeable to current plan of care and verbalizes understanding of instructions. She was given the opportunity to ask questions and all questions answered. ? Thank you for allowing me to participate in her care Orders H Pylori Breath Test 12/13/24 K21.9 Transglutaminase IgA 12/13/24 R10.9 Lipase 12/13/24 R10.9 New famotidine (Pepcid) 20 mg PO BID 30 tabs 0RF K29.70 lansoprazole 30 mg PO DAILY 30 tabs 3RF simethicone (Gas Relief (simethicone)) 125 mg PO TID-QID PRN 120 caps 2RF abdominal distention Discontinued omeprazole Discontinued Reason: Doctor's Order 40 mg (2 x 20 mg) PO DAILY 180 caps 3RF K21.9 TODAY'S VISIT Patient id today for follow-up. Patient had normal transglutaminase. H pylori negative. She is taking lansoprazole and reports that she is feeling well. She is not taking famotidine currently. Still has epigastric pain occasionally, however for the most part her acid reflux is controlled. Patient denies dyspepsia, dysphagia or odynophagia your denies melena, hematochezia. Patient is on Zepbound and has been losing weight successfully. Patient last 22 lb since December. Patient reports that overall she has been feeling much better. Has more energy. [facility] Medical History Chest pain Fall Coccyxdynia Myofascial low back pain Lump of skin Traumatic hematoma of buttock Colon cancer screening Bilateral knee pain Bilateral hand pain Viral upper respiratory illness Brain mass Epidermoid cyst of brain Dizziness Facial dermatitis Facial dermatitis Breast pain, right Knee pain, left Epidermal inclusion cyst Heart murmur Requires management of nerve block infusion Obesity (BMI 30-39.9) Hip pain, right Rotator cuff disorder Hypercholesterolemia Lumbar degenerative disc disease Anemia Vitamin D deficiency GERD (gastroesophageal reflux disease) Hypertension Bilateral carpal tunnel syndrome Primary osteoarthritis of hands, 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 Maternal Grandmother History of asthma Paternal Grandfather No problems noted. 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 Cognitive needs: No Hearing needs: No Vision needs: Yes Female Reproductive History Menstrual Age of Menarche: 15 Review of Systems Const Denies weight gain and Denies weight loss ENT Reports no additional complaints, Denies dysphagia and Denies odynophagia Card Reports no additional complaints Resp Reports no additional complaints GI Reports abdominal pain (Epigastric), Denies belching, Denies melena, Reports bloating, Denies change in bowel habits, Reports constipation (Occasional), Denies dysphagia, Denies excessive flatus, Reports dyspepsia, Reports heartburn, Denies diarrhea, Denies loose stools, Denies nausea, Denies odynophagia and Denies vomiting Reports no additional complaints Musc Reports no additional complaints Neuro Reports no additional complaints Psych Reports no additional complaints Endo Reports no additional complaints Physical Exam Vital Signs: Last Vital Signs Pulse 82 03/19/25 08:46 BP 134/98 H 03/19/25 08:46 Pulse Ox 100 03/19/25 08:46 Oxygen Delivery Method Room Air 03/19/25 08:46 BMI result Body Mass Index 29.4 Const General: healthy appearing, no acute distress and well developed Nutritional Appearance: well nourished Orientation/consciousness: patient oriented x3 Resp Effort & Inspection: normal respiratory effort, able to speak in complete sentences, no tracheal deviation and symmetric chest movement Auscultation: clear to auscultation bilaterally Cardio Rate: regular rate GI Inspection: Yes normal to inspection and No distended Palpation (GI): Soft to palpation, not firm, nontender and No hepatosplenomegaly present Auscultation: normal bowel sounds General: Yes no CVA tenderness Back/Spine/Pelvis Back: no CVA tenderness Skin General skin exam: elasticity normal, turgor normal and dry skin Neuro General: patient oriented x3 Psych Appearance: grossly normal Mental Status: mental status grossly normal Results Reviewed Results Reviewed: Laboratory Tests 12/25/24 12/28/24 16:04 08:45 Tiss Transglutamin IgA <1.0 H. pylori Breath Test Negative Assessment & Plan Assessment & Plan (1) GERD (gastroesophageal reflux disease): Code(s): K21.9 - Gastro-esophageal reflux disease without esophagitis Category: Medical Qualifiers: Esophagitis presence: without esophagitis Qualified Code(s): K21.9 - Gastro-esophageal reflux disease without esophagitis (2) LFTs abnormal: Code(s): R79.89 - Other specified abnormal findings of blood chemistry Category: Medical (3) Hepatomegaly: Code(s): R16.0 - Hepatomegaly, not elsewhere classified Category: Medical (4) Chronic constipation: Code(s): K59.09 - Other constipation Category: Medical Plan Continue lansoprazole daily. May add famotidine at bedtime. Avoid dietary triggers and late night snacking. Staying upright for minimum 3 hours after meals discussed with patient. Patient will increase fluid intake and activity to promote better bowel motility. May take simethicone as needed. Low FODMAP diet discussed with patient. List of recommended as well as list of food to avoid given to patient. Will follow up in 3 months, sooner on as needed basis. Orders: Orders Liver Panel Today R74.01 - Elevation of levels of liver transaminase levels Medications: Changed From famotidine (Pepcid) 20 mg PO BID 30 tabs 0RF K29.70 - Gastritis, unspecified, without bleeding To famotidine (Pepcid) 20 mg PO BEDTIME 30 tabs 3RF K29.70 - Gastritis, unspecified, without bleeding Refilled simethicone (Gas Relief (simethicone)) 125 mg PO TID-QID PRN 120 caps 2RF abdominal distention lansoprazole 30 mg PO DAILY 90 tabs 3RF Coding Level of Care Code Est Pt Level 3 (69644) Diagnoses Gastroesophageal reflux disease without esophagitis K21.9 Esophagitis presence: without esophagitis LFTs abnormal R79.89 Hepatomegaly R16.0 Chronic constipation K59.09 Time Spent (min) 30 Comment 20 minutes spent with patient and additional 10 minutes spent reviewing her records
[2025-03-19 08:46] VITALS: BP 134/98; PULSE 82; O2SAT 100; BMI 29.4
== END 2025-03-19 09:33 | disposition home or self-care (01) ==
LOC: HO.HGI 08:36
PROVIDERS: PCP Internal Medicine; Visit Provider Nurse Practitioner Family
DX: K21.9 Gastro-esophageal reflux disease without esophagitis (principal); R79.89 Other specified abnormal findings of blood chemistry; R16.0 Hepatomegaly, not elsewhere classified; K59.09 Other constipation
CPT/HCPCS: 99213

== ENCOUNTER 2025-04-25 11:00 | Emergency (ER) | payer BC, SELFPAY ==
[2025-04-25 11:38] VITALS: BP 152/93; PULSE 93; RESP 18; TEMP 36.7; O2SAT 99; BMI 23.4
--- NOTE | 2025-04-25 11:39 | ECG_ITS ---
Test Reason : ABD PAIN Blood Pressure : */* mmHG Vent. Rate : 73 BPM Atrial Rate : 73 BPM P-R Int : 132 ms QRS Dur : 90 ms QT Int : 362 ms P-R-T Axes : 25 -6 16 degrees QTcB Int : 398 ms Normal sinus rhythm with sinus arrhythmia Normal ECG When compared with ECG of 05-Aug-2024 18:06, No significant change was found Referred By: Luis Manuel Oneal Electronically Signed By: JORGE A KRISHNAMURTHY
--- NOTE | 2025-04-25 11:40 | ED.GENADULT ---
HPI - General Adult General Chief complaint: Abdominal Pain Stated complaint: stomach pain Time Seen by Provider: 04/25/25 13:08 Source: patient Mode of arrival: ambulatory Limitations: no limitations History of Present Illness ED Provider: DR. Morales HPI narrative: this is a 54-year-old female with chronic history of gastritis and GERD on lansoprazole that she has been seen by GI, presented for evaluation of epigastric pain since Wednesday ( 3 days ago) no clear aggravating or relieving factors, was not triggered by any food that the patient eat, patient is s/p cholecystectomy in the past, has no fever, no chills, no nausea, no vomiting, no loss of appetite, patient on chronic laxative +loose bowel movement this morning, passing flatus normally. Related Data Previous Rx's ?Medication ?Instructions ?Recorded leg brace (Knee Support Brace) #1 ea 06/28/20 Donut pillow #1 ea 10/10/21 lidocaine 5 % topical patch 1 patch topical DAILY PRN for pain 01/13/24 #30 patches ondansetron 4 mg disintegrating 4 mg PO Q8H PRN nausea and 08/29/24 tablet vomiting #10 tabs sertraline 100 mg tablet 100 mg PO DAILY #90 tabs 11/10/24 buspirone 10 mg tablet 10 mg PO BID 90 days #180 tabs 11/23/24 docusate sodium 100 mg capsule 200 mg (2 x 100 mg) PO DAILY PRN 12/25/24 constipation #180 caps cholecalciferol (vitamin D3) 50 50 mcg PO DAILY 90 days #90 tabs 12/26/24 mcg (2,000 unit) tablet lorazepam 0.5 mg tablet 0.5 mg PO BID PRN agitation 90 12/26/24 days #180 tabs tramadol 50 mg tablet 50 mg PO Q8H PRN pain 30 days #90 12/26/24 tabs lisinopril 10 mg tablet 10 mg PO DAILY #90 tabs 02/15/25 famotidine 20 mg tablet (Pepcid) 20 mg PO BEDTIME #30 tabs 03/19/25 simethicone 125 mg capsule (Gas 125 mg PO TID-QID PRN abdominal 03/19/25 Relief (simethicone)) distention #120 caps tirzepatide (weight loss) 15 15 mg (0.5 mL) subcut QWEEK 30 03/19/25 mg/0.5 mL subcutaneous pen injector days #2.5 mL lansoprazole 30 mg delayed 30 mg PO DAILY #90 tabs 04/25/25 release,disintegrating tablet Allergies Allergy/AdvReac Type Severity Reaction Status Date / Time No Known Allergies (No Known Allergy Verified 04/25/25 11:39 Allergies*) Review of Systems Review of Systems: All other systems are reviewed and are negative Constitutional: Reports as per HPI and Reports no additional constitutional complaints Eyes: Reports as per HPI and Reports no additional eye complaints Reports system reviewed and no additional complaints, except as documented Cardiovascular: Reports as per HPI and Reports no additional cardiovascular complaints Respiratory: Reports as per HPI and Reports no additional respiratory complaints Gastrointestinal: Reports as per HPI and Reports no additional gastrointestinal complaints Genitourinary: Reports no additional female genitourinary complaints Musculoskeletal: Reports no additional musculoskeletal complaints Skin/Breast: Reports system reviewed and no additional complaints, except as docu Psychiatric: Reports no additional psychiatric complaints Endocrine: Reports no additional endocrine complaints Hematologic/Lymphatic: Reports no additional hematologic/lymphatic complaints Allergic/Immunologic: Reports no additional allergic/immunologic complaints Reports system reviewed and no additional complaints, except as documented and Reports Abnormal speech present PMFSH Past Medical History Medical History Chest pain Fall Coccyxdynia Myofascial low back pain Lump of skin Traumatic hematoma of buttock Colon cancer screening Bilateral knee pain Bilateral hand pain Viral upper respiratory illness Brain mass Epidermoid cyst of brain Dizziness Facial dermatitis Facial dermatitis Breast pain, right Knee pain, left Epidermal inclusion cyst Heart murmur Requires management of nerve block infusion Obesity (BMI 30-39.9) Hip pain, right Rotator cuff disorder Hypercholesterolemia Lumbar degenerative disc disease Anemia Vitamin D deficiency GERD (gastroesophageal reflux disease) Hypertension Bilateral carpal tunnel syndrome Primary osteoarthritis of hands, bilateral Avascular necrosis of right humeral head Hx of tendinitis Hx of diverticulitis of colon Surgical History History of removal of cyst Varicose veins of right lower extremity History of foot surgery Hx of rotator cuff surgery Hx of cholecystectomy Hx of abdominoplasty Hx of colonoscopy Hx of tubal ligation Family History Family History Father Hx of diabetes mellitus History of high cholesterol Mother Family hx of hypertension History of asthma Hx of heart disorder Brother Automobile accident Brother Suicide Family/Other No problems noted. Maternal Grandmother History of asthma Paternal Grandfather No problems noted. Daughter In good health Daughter In good health Daughter In good health Other Mental health disorder Social History Social History Housing: House Alcohol intake: former Patient Tobacco Use Status: Former Tobacco user Tobacco use type: Cigarette Years Smoked: stopped 1-2 cigarettes at a time > 2010 Smoked in Last 30 Days: Yes e-Cigarette/Vaping Use: Former Use Second Hand Smoke Exposure: No Use of substances other than those prescribed or required for medical reasons: Yes Substance Use Type: Marijuana Advance Directives: No Advance Directives Information Provided: Yes Patient : No service: No Current occupational status: employed 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 Blood pressure elevated. Heart rate normal. Respiratory rate normal. Temperature normal. Oxygen saturation normal. Appearance: Alert. Oriented X3. No acute distress. Head: Normal external exam. Normocephalic. Atraumatic. No Monotya signs noted. No raccoon eyes noted Eyes: PERRLA. EOMI. Conjunctiva and sclera normal. Eyelids normal. ENT: TM's Normal. Pharynx normal. Uvula midline. Moist mucous membranes. No trismus noted. No drooling noted. No muffled voice noted. Neck: Normal inspection. Neck supple. FROM. No adenopathy. Thyroid Normal. No meningeal signs. No neck mass noted. CVS: Normal heart rate and rhythm. Heart sound normal. No murmurs noted. Pulses normal throughout. Respiratory: No respiratory distress. Painless inspiration. Breath sounds normal. No wheezes/rales/rhonchi noted. Chest nontender. No accessory muscle usage noted or decreased air movement noted. Abdomen: Soft , mild epigastric tenderness, otherwise no right lower quadrant tenderness, no left lower quadrant tenderness. No guarding, no rebound tenderness. Bowel sounds normal in all 4 quadrants. No distention noted. No organomegaly noted. No visible injury noted. Back: No CVA tenderness. Full range of motion noted. Skin: Skin warm and dry. Normal skin color. Normal skin turgor. No rashes/lesions/lacerations noted. Extremities: No lower extremity edema. Extremities exhibit normal range of motion. Extremities nontender. Neuro: Oriented X 3. Cranial nerve exam: II-XII are grossly intact No motor deficit. No sensory deficit. Reflexes normal. Course Course Course Narrative: RME: 53 female the ED for gastric abdominal pain with acid burning sensation. Patient denies any nausea vomiting diarrhea. Labs EKG ordered Reevaluation(s) Reevaluation #1: Feels better after IV Protonix and Maalox, patient was instructed to avoid any processed, greasy, fried, spicy food and continue with PPI and follow-up with GI. With patient's symptoms improvement and absence of lower abdominal tenderness history and exam is consistent with Acid reflux issue. Time: 15:55 Medications Administered Discontinued Medications Generic Name Dose Route Start Last Admin Trade Name Freq PRN Reason Stop Dose Admin Al Hydroxide/Mg Hydroxide 30 ml 04/25/25 13:36 04/25/25 14:40 Magnesium Hydrox/Alum Hydrox 30 Ml Oral.Susp PO 04/25/25 13:37 30 ml ONCE ONE Administration Lactated Ringer's 1,000 mls @ 999 mls/hr 04/25/25 13:45 04/25/25 15:49 Lr IV 04/25/25 14:45 Infused .Q1H1M TAZ Infusion Pantoprazole Sodium 80 mg 04/25/25 13:36 04/25/25 14:40 Pantoprazole Sodium 40 Mg/10 Ml Vial IVPUSH 04/25/25 13:37 80 mg ONCE ONE Administration Medical Decision Making Differential Diagnosis Differential Diagnoses: The differential diagnosis associated with the presentation includes ( GERD, acid reflux, ACS, electrolyte derangement, dehydration, severe anemia, appendicitis, colitis, diverticulitis.) Admission/Observation Consideration of admission/observation: Escalation of care including admission/observation considered Lab Data MDM Lab Attestation statement: I reviewed the patient's lab results. 04/25/25 12:11 04/25/25 12:11 Labs: Lab Results 04/25/25 Range/Units 12:11 WBC 7.6 (4.8-10.8) X10*3/uL RBC 4.27 (4.20-5.50) X10*6/uL Hgb 12.6 (12.0-16.0) g/dl Hct 36.4 L (37.0-47.0) % MCV 85.2 (80.0-98.0) fL MCH 29.5 (27.0-33.0) pg MCHC 34.6 (31.0-35.0) g/dl RDW 13.6 (11.0-16.0) % Plt Count 265 (160-400) X10*3/uL MPV 10.6 (9.4-12.3) fL Immature Gran % (Auto) 0.3 (0.0-0.4) % Neut % (Auto) 67.1 (45-73) % Lymph % (Auto) 24.8 (20-40) % Roberts % (Auto) 5.9 (2-11) % Eos % (Auto) 1.5 (0-4) % Baso % (Auto) 0.4 (0-2) % Lymph # (Auto) 1.9 (1.2-4.9) X10*3/uL Roberts # (Auto) 0.5 (0.1-1.2) X10*3/uL Eos # (Auto) 0.1 (0.0-0.4) X10*3/uL Baso # (Auto) 0.0 (0.0-0.2) X10*3/uL Abs Immat Gran (auto) 0.02 (0.00-0.03) X10*3/uL Absolute Neuts (auto) 5.1 (2.0-8.3) x10*3/uL Absolute Nucleated RBC 0.000 (0.0-0.012) X10*3/uL Nucleated RBC % (auto) 0.0 (0.0-0.2) /100WBC PT 10.5 L (10.9-12.4) SEC INR 0.9 (0.9-1.1) APTT 29.9 (26.7-34.1) SEC Sodium 142 (135-145) mmol/L Potassium 4.0 (3.3-5.1) mmol/L Chloride 110 H (96-108) mmol/L Carbon Dioxide 24 (22-29) mmol/L Anion Gap 12 (12-20) BUN 9 (9-16) mg/dL Creatinine 0.63 (0.5-1.4) mg/dL Estim Creat Clear Calc 96.6 Estimated GFR > 60 Random Glucose 90 (60-115) mg/dL Calcium 9.3 (8.4-10.2) mg/dL Total Bilirubin 0.3 (0.0-1.0) mg/dL AST 18 (5-31) U/L ALT 16 (0-31) U/L Alkaline Phosphatase 72 (39-117) U/L Troponin I High Sens < 2.7 (<3.5-17.0) ng/L Total Protein 7.3 (6.5-8.0) g/dL Albumin 4.3 (3.5-5.0) g/dL Lipase 30 (8-78) U/L Discharge Plan Discharge Clinical Impression: Chronic GERD Patient Disposition: Home, Self-Care Instructions: Diet for Stomach Ulcers and Gastritis (ED) Prescriptions: No Action sertraline 100 mg tablet 100 mg PO DAILY Qty: 90 1RF buspirone 10 mg tablet 10 mg PO BID 90 Days Qty: 180 1RF docusate sodium 100 mg capsule 200 mg PO DAILY PRN (Reason: constipation) Qty: 180 3RF lisinopril 10 mg tablet 10 mg PO DAILY Qty: 90 1RF tirzepatide (weight loss) 15 mg/0.5 mL pen injector 15 mg subcut QWEEK 30 Days Qty: 2.5 1RF Rx Instructions: for 4 weeks lansoprazole 30 mg tablet,disintegrat, delay rel 30 mg PO DAILY Qty: 90 3RF lidocaine 5 % adhesive patch,medicated 1 patch topical DAILY PRN (Reason: for pain) Qty: 30 3RF (DME) Knee Support Brace Misc See Rx Instructions .MEDSUPPLY Qty: 1 0RF Rx Instructions: [id number] knee support (DME) Donut pillow Misc See Rx Instructions .Route Qty: 1 0RF Rx Instructions: As directed cholecalciferol (vitamin D3) 50 mcg (2,000 unit) tablet 50 mcg PO DAILY 90 Days Qty: 90 3RF lorazepam 0.5 mg tablet 0.5 mg PO BID PRN (Reason: agitation) 90 Days Qty: 180 0RF tramadol 50 mg tablet 50 mg PO Q8H PRN (Reason: pain) 30 Days Qty: 90 2RF famotidine [Pepcid] 20 mg tablet 20 mg PO BEDTIME Qty: 30 3RF simethicone [Gas Relief (simethicone)] 125 mg capsule 125 mg PO TID-QID PRN (Reason: abdominal distention) Qty: 120 2RF ondansetron 4 mg tablet,disintegrating 4 mg PO Q8H PRN (Reason: nausea and vomiting) Qty: 10 0RF Referrals: Usha Singer, [facility] [employer]ATOR-BC [Nurse Practitioner, Gastroenterology] Po,Mian Howard MD [Primary Care Provider, Internal Medicine] Stand Alone Forms: Work/School Release Interventions: ED Discharge Assessment Last Done: 04/25/25 15:49 Discharge Date/Time: 04/25/25 16:02 Print Language: [place]
[2025-04-25 12:20] LABS: MANUAL DIFF FLAG NO
[2025-04-25 12:25] LABS: Hematocrit 36.4 % (37.0-47.0); Hemoglobin 12.6 g/dl (12.0-16.0); Imm Gran Abs Auto 0.02 X10*3/uL (0.00-0.03); Imm Gran Pct Auto 0.3 % (0.0-0.4); Lymphocytes Absolute Auto 1.9 X10*3/uL (1.2-4.9); Mean Corpuscular HGB Conc 34.6 g/dl (31.0-35.0); Mean Corpuscular Hemoglobin 29.5 pg (27.0-33.0); Mean Corpuscular Volume 85.2 fL (80.0-98.0); NRBC Abs Auto 0.000 X10*3/uL (0.0-0.012); NRBC Pct Auto 0.0 /100WBC (0.0-0.2); Platelet Count 265 X10*3/uL (160-400); Red Blood Count 4.27 X10*6/uL (4.20-5.50); White Blood Count 7.6 X10*3/uL (4.8-10.8)
[2025-04-25 12:33] LABS: INTERNATIONAL NORM RATIO 0.9 (0.9-1.1); Prothrombin Time 10.5 SEC (10.9-12.4)
[2025-04-25 12:35] LABS: Alanine Aminotransferase 16 U/L (0-31); Albumin Level 4.3 g/dL (3.5-5.0); Alkaline Phosphatase 72 U/L (39-117); Anion Gap 12 (12-20); Aspartate Amino Transferase 18 U/L (5-31); Blood Urea Nitrogen 9 mg/dL (9-16); Calcium 9.3 mg/dL (8.4-10.2); Carbon Dioxide 24 mmol/L (22-29); Chloride 110 mmol/L (96-108); Creatinine Clr Calc Pharmacy 96.6; Estimated Glomerular Filt Rate > 60; Lipase 30 U/L (8-78); Potassium 4.0 mmol/L (3.3-5.1); Sodium 142 mmol/L (135-145); Total Protein 7.3 g/dL (6.5-8.0)
[2025-04-25 12:36] LABS: Partial Thromboplastin Time 29.9 SEC (26.7-34.1)
[2025-04-25 12:43] LABS: Troponin-I High Sensitivity < 2.7 ng/L (<3.5-17.0)
[2025-04-25] MEDS: Lactated Ringers 1,000 ML 999 ML IV (14:28)
[2025-04-25] MEDS: Magnesium Hydrox/Alum Hydrox 30 ML ORAL.SUSP PO (14:40)
[2025-04-25 15:49] VITALS: BP 152/93; PULSE 93; RESP 18; TEMP 36.7; O2SAT 99
== END 2025-04-25 16:02 | disposition home or self-care (01) ==
PROVIDERS: Physician Assistant; Emergency Provider Emergency Medicine; PCP Internal Medicine
DX: K21.9 Gastro-esophageal reflux disease without esophagitis (principal); R10.9 Unspecified abdominal pain
CPT/HCPCS: 36415; 80053; 83690; 84484; 85025; 85610; 85730; 93005; 96361; 96374; 99284; J2470; J7120

== ENCOUNTER → 2025-04-25 11:39 | Outpatient (BNV) | payer BC, SELFPAY | PROVIDERS: Emergency Provider Emergency Medicine; PCP Internal Medicine; Visit Provider Internal Medicine | DX: R10.13 Epigastric pain (principal) | CPT/HCPCS: 93010 ==

== ENCOUNTER 2025-05-02 08:19 | Outpatient (AMB) | payer BC, SELFPAY ==
[2025-05-02 08:30] VITALS: BP 130/72; PULSE 79; O2SAT 98; BMI 25.8
--- NOTE | 2025-05-02 08:30 | MHC.PC.OV ---
Vital Signs 05/02/25 08:30 Height 5 ft 6 in Weight 160 lb BMI 25.8 BP 130/72 Blood Pressure Location Lt brachial Position Sitting Pulse 79 Pulse Source Pulse Oximeter Pulse Oximetry (%) 98 Oxygen Delivery Method Room Air Intake Visit Reasons: anemia Allergies No Known Allergies (No Known Allergies*) Allergy (Verified 05/02/25 08:30) Tobacco use date assessed: 09/18/24 Dental Screening Dental Screen Date: 09/18/24 [facility] Medical History Chest pain Fall Coccyxdynia Myofascial low back pain Lump of skin Traumatic hematoma of buttock Colon cancer screening Bilateral knee pain Bilateral hand pain Viral upper respiratory illness Brain mass Epidermoid cyst of brain Dizziness Facial dermatitis Facial dermatitis Breast pain, right Knee pain, left Epidermal inclusion cyst Heart murmur Requires management of nerve block infusion Obesity (BMI 30-39.9) Hip pain, right Rotator cuff disorder Hypercholesterolemia Lumbar degenerative disc disease Anemia Vitamin D deficiency GERD (gastroesophageal reflux disease) Hypertension Bilateral carpal tunnel syndrome Primary osteoarthritis of hands, 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 Maternal Grandmother History of asthma Paternal Grandfather No problems noted. 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 Cognitive needs: No Hearing needs: No Vision needs: Yes Female Reproductive History Menstrual Age of Menarche: 15 Questionnaire Thrive Questionnaire Date Thrive assessed: 12/26/24 I am a: Patient What is your living situation today?: I have a steady place to live Within the past 12 months, did the food you bought not last and you didn't have the money to get more?: Never true Within the past 12 months, did you worry whether your food would run out before you got money to buy more?: Never true Do you have trouble paying for medicines?: Yes Do you have trouble getting transportation to medical appointments?: No Do you have trouble paying your heating and electricity bill?: No Do you have trouble taking care of your child, family member or friend?: No Do you have trouble with day-to-day activities such as bathing, preparing meals, shopping, managing finances, etc.?: Yes Are you currently unemployed and looking for a job?: No Are you interested in more education?: No Please select the resources that you would like help with: None Currently or been in a relationship where the following occur: No concerns reported THRIVE Score: 0 GILSON-7 AMB Questionnaire GILSON-7 Date GILSON - 7 assessed: 12/26/24 Source: Developed by Drs. Duane Oliveros, Ludy Truong, Junito Zavala and colleagues, with an educational preeti from [email or web address]. Physical exam (Primary Care) Vital Signs: Last Vital Signs Pulse 79 05/02/25 08:30 BP 130/72 05/02/25 08:30 Pulse Ox 98 05/02/25 08:30 Oxygen Delivery Method Room Air 05/02/25 08:30 BMI result Body Mass Index 25.8 Tobacco/Smoking Status: Tobacco use Status Tobacco use date assessed 09/18/24 05/02/25 08:35 Patient Tobacco Use Status Former Tobacco user 05/02/25 08:35 Tobacco use type Cigarette 05/02/25 08:35 e-Cigarette/Vaping Use Former Use 05/02/25 08:35 Thrive Assessment: Date of Thrive Assessment Date Thrive assessed 12/26/24 05/02/25 08:35 Currently or been in a relationship where the following occur: No concerns reported Const General: alert; No acute distress Eyes Conjunctivae: conjunctivae normal Resp Auscultation: clear to auscultation bilaterally Cardio Rate: regular rate Rhythm: regular rhythm GI Inspection: Yes normal to inspection Extrem General: Yes normal to inspection and No edema Immunizations Tenivac (PF) 5 Lf unit-2 Lf unit/0.5 mL intramuscular suspension Performing Provider: Mian Haynes MD Performing Location: [facility] [place] [facility] Administered by: Lora Justice CMA on 05/02/25 09:04 Dose Route Admin Location Dispensed Lot Number Expiration Date [place] [employer] Operations Investigator 0.5 mL IM Left Deltoid 0.5 mL [id number] 11/07/26 08389-727-07 [employer] Total Dispensed Waste 0.5 mL 0 % VIS Given Date VIS Provided VIS Publication Date 05/02/25 Single Vaccine 21 Eligibility Eligibility Date Funding Source Not [facility] Eligible 05/02/25 Private Coding Level of Care Code Est Pt Level 4 (46531) Complex EM visit Add On G2211 Diagnoses Essential hypertension I10 Hypertension type: essential hypertension Hypercholesterolemia E78.00 Gastroesophageal reflux disease without esophagitis K21.9 Esophagitis presence: without esophagitis Anemia D64.9 Lumbar degenerative disc disease M51.36 Assessment & Plan Assessment & Plan (1) Hypertension: Code(s): I10 - Essential (primary) hypertension Category: Medical Qualifiers: Hypertension type: essential hypertension Qualified Code(s): I10 - Essential (primary) hypertension Plan: Continue with blood pressure medication. Decrease salt intake and exercise presently on lisinopril 10 mg once a day (2) Hypercholesterolemia: Code(s): E78.00 - Pure hypercholesterolemia, unspecified Category: Medical Plan: Avoid fried foods, chicken skin, eggs, butter margarine, pastries and meat. Be it pork or beef they have a lot of cholesterol LDL goal of less than 130 and triglyceride of less than 150 patient is presently on diet control. (3) GERD (gastroesophageal reflux disease): Code(s): K21.9 - Gastro-esophageal reflux disease without esophagitis Category: Medical Qualifiers: Esophagitis presence: without esophagitis Qualified Code(s): K21.9 - Gastro-esophageal reflux disease without esophagitis Plan: Avoid the foods that causes that usually spicy foods, tomato products, juices, coffee, soda and foods that your sensitive to. After eating do not lie down, allow 3-4 hours before in lie down. And keep the head of bed above 30 degrees to avoid the acid from going up. (4) Anemia: Code(s): D64.9 - Anemia, unspecified Category: Medical Plan: Resolved (5) Lumbar degenerative disc disease: Code(s): M51.36 - Other intervertebral disc degeneration, lumbar region Category: Medical Plan: Keep active Plan History of Present Illness The patient is a 54-year-old female presenting for a follow-up visit. The patient has a history of vascular necrosis of the femoral head diagnosed in 2019. She also has hypercholesterolemia and lumbar degenerative disc disease. The patient has a history of adenomatous polyp of the colon, with the last colonoscopy performed in February 2023. She also has generalized anxiety disorder and was last seen in December 2024 for palpitations. The patient reports a history of gastroesophageal reflux disease (GERD) and was recently seen by gastroenterology on March 19. She is currently on Lansoprazole and may add famotidine as needed. The patient's last blood work in April showed normal blood count, electrolytes, renal function, blood sugar, and liver function. Cholesterol levels were lower than in December 2024, with triglycerides at 319 and LDL at 82. There was a mild elevation in TSH, which requires follow-up. The patient is currently on lisinopril 10 mg daily for hypertension. She is managing her cholesterol with diet control, aiming for an LDL goal of less than 130 and triglycerides less than 150. Health Maintenance - Mammogram is up to date as of April 2025 - Tetanus vaccination is due, last received in 2012 Social History - The patient engages in Tigerspikeing as a hobby, which she finds mentally engaging and fulfilling. Review of Systems - Cardiovascular: Reports palpitations. Denies chest pain. - Gastrointestinal: Reports GERD. Denies nausea. - Neurological: Reports balance issues when standing. Denies dizziness. Physical Exam Results - Labs: Normal blood count, electrolytes, renal function, blood sugar, and liver function as of April 2025 - Labs: Cholesterol levels lower than in December 2024, triglycerides at 319, LDL at 82 - Labs: Mild elevation in TSH Plan Patient was informed and verbally consented to the use of an ambient scribe for clinic note documentation during this visit. 1. Vascular Necrosis Of The Femoral Head The patient has a history of vascular necrosis of the femoral head diagnosed in 2019. 2. Hypercholesterolemia The patient is managing hypercholesterolemia with diet control, aiming for an LDL goal of less than 130 and triglycerides less than 150. 3. Lumbar Degenerative Disc Disease The patient has lumbar degenerative disc disease, which is being monitored. 4. Adenomatous Polyp Of The Colon The patient has a history of adenomatous polyp of the colon, with the last colonoscopy performed in February 2023. 5. Generalized Anxiety Disorder The patient has generalized anxiety disorder and was last seen in December 2024 for palpitations. 6. Gastroesophageal Reflux Disease (Gerd) The patient reports a history of GERD and was recently seen by gastroenterology on March 19. She is currently on Lansoprazole and may add famotidine as needed. 7. Elevated Triglycerides The patient's triglycerides were at 319, and she is advised to manage this through dietary modifications. 8. Elevated Tsh The patient has a mild elevation in TSH, which requires follow-up. 9. Hypertension The patient is currently on lisinopril 10 mg daily for hypertension. Discussion Notes During the visit, we discussed the management of the patient's hypercholesterolemia through dietary control, aiming for specific LDL and triglyceride targets. We also reviewed the patient's GERD management plan, including the use of Lansoprazole and the potential addition of famotidine as needed. The importance of monitoring the elevated TSH was emphasized, and a follow-up was recommended. Patient Instructions - Continue current medications as prescribed, including lisinopril for hypertension and Lansoprazole for GERD. - Follow a diet to manage cholesterol levels, aiming for LDL less than 130 and triglycerides less than 150. - Schedule a follow-up appointment to monitor TSH levels. - Maintain regular physical activity and engage in hobbies for mental well-being. Orders: Orders Complete Blood Count Auto Diff 3 Months I10 - Essential (primary) hypertension Comprehensive Met. Panel 3 Months I10 - Essential (primary) hypertension Ferritin 3 Months I10 - Essential (primary) hypertension IRON PROFILE 3 Months I10 - Essential (primary) hypertension Thyroid Stimulating Hormone 3 Months I10 - Essential (primary) hypertension Hemoglobin A1c 3 Months I10 - Essential (primary) hypertension Lipid Panel 3 Months E78.00 - Pure hypercholesterolemia, unspecified, I10 - Essential (primary) hypertension Vitamin B12 and Folate 3 Months I10 - Essential (primary) hypertension Reticulocyte Count 3 Months I10 - Essential (primary) hypertension Free T4 (Free Thyroxine) 3 Months I10 - Essential (primary) hypertension Magnesium 3 Months I10 - Essential (primary) hypertension Td Immunization Today Z23 - Encounter for immunization Medications: Changed From buspirone 10 mg PO BID 90 days 180 tabs 1RF F32.9 - Major depressive disorder, single episode, unspecified, F41.9 - Anxiety disorder, unspecified To buspirone 5 mg PO .qd 90 tabs 0RF 90 days F32.9 - Major depressive disorder, single episode, unspecified, F41.9 - Anxiety disorder, unspecified From sertraline 100 mg PO DAILY 90 tabs 1RF I10 - Essential (primary) hypertension To sertraline 50 mg PO DAILY 30 tabs 3RF I10 - Essential (primary) hypertension Refilled cholecalciferol (vitamin D3) 50 mcg PO DAILY 90 tabs 3RF 90 days E55.9 - Vitamin D deficiency, unspecified
== END 2025-05-02 09:10 | disposition home or self-care (01) ==
LOC: HO.HMCH 08:20
PROVIDERS: PCP Internal Medicine; Visit Provider Internal Medicine
DX: I10 Essential (primary) hypertension (principal); E78.00 Pure hypercholesterolemia, unspecified; K21.9 Gastro-esophageal reflux disease without esophagitis; D64.9 Anemia, unspecified; M51.369 Other intervertebral disc degeneration, lumbar region without mention of lumbar back pain or lower extremity pain; Z23 Encounter for immunization

== ENCOUNTER → 2025-05-02 08:19 | Outpatient (BNVA) | payer BC, SELFPAY | PROVIDERS: PCP Internal Medicine; Visit Provider Internal Medicine | DX: I10 Essential (primary) hypertension (principal); E78.00 Pure hypercholesterolemia, unspecified; K21.9 Gastro-esophageal reflux disease without esophagitis; D64.9 Anemia, unspecified; M87.9 Osteonecrosis, unspecified; M51.369 Other intervertebral disc degeneration, lumbar region without mention of lumbar back pain or lower extremity pain; F41.1 Generalized anxiety disorder; R79.89 Other specified abnormal findings of blood chemistry; Z23 Encounter for immunization; F32.A Depression, unspecified; E55.9 Vitamin D deficiency, unspecified | CPT/HCPCS: 90471; 90714 ==

== ENCOUNTER 2025-06-29 08:17 | Outpatient (AMB) | payer BC, SELFPAY ==
--- NOTE | 2025-06-29 08:31 | A.OFFVIS_ITS ---
Vital Signs 06/29/25 08:35 Height 5 ft 3 in Weight 167 lb BMI 29.6 BP 122/76 Blood Pressure Location Rt brachial Position Sitting Pulse 72 Pulse Source Pulse Oximeter Pulse Oximetry (%) 97 Oxygen Delivery Method Room Air Intake Visit Reasons: 3 mos FUV. GERD mgmt Intake Note: Est pt for GERD + CIC mgmt. CC: Pt denies any current GI sx or concerns. Reports that she just recently restarted GLP 1 therapy w/o complication after having insurance dispute. Pt confirms her PPI is still effective and she is taking it w/o complication. Environmental Communications Specialist Required: No Accompanied by: Self / Same As Patient Allergies No Known Allergies (No Known Allergies*) Allergy (Verified 06/29/25 08:31) HPI HPI 3 mos FUV. GERD mgmt: Details: LAST VISIT: GERD (gastroesophageal reflux disease) LFTs abnormal Hepatomegaly Chronic constipation Plan Continue lansoprazole daily. May add famotidine at bedtime. Avoid dietary triggers and late night snacking. Staying upright for minimum 3 hours after meals discussed with patient. Patient will increase fluid intake and activity to promote better bowel motility. May take simethicone as needed. Low FODMAP diet discussed with patient. List of recommended as well as list of food to avoid given to patient. Will follow up in 3 months, sooner on as needed basis. Orders Liver Panel Today R74.01 Changed Changed From famotidine (Pepcid) 20 mg PO BID 30 tabs 0RF K29.70 Changed To famotidine (Pepcid) 20 mg PO BEDTIME 30 tabs 3RF K29.70 Refilled simethicone (Gas Relief (simethicone)) 125 mg PO TID-QID PRN 120 caps 2RF abdominal distention lansoprazole 30 mg PO DAILY 90 tabs 3RF TODAY'S VISIT: Patient is here today for follow-up. Patient reports that she has been doing well since last visit. Patient reports that she was on GLP 1, however due to her insurance she had to stop. Patient was feeling nauseous when she was not taking GLP 1. Reported nauseous in the morning and epigastric pain. However patient reports that she is doing well with lansoprazole and famotidine. Patient takes lansoprazole half an hour before breakfast. Patient takes famotidine at bedtime. Patient denies any nausea, dyspepsia, dysphagia or odynophagia. Patient denies any issues with her bowels. Reports that she is moving her bowels, denies melena, hematochezia, unintentional weight loss or ribbon like stools. Patient however reports that she feels that she might have internal hemorrhoids. Patient reports occasional discomfort when having a bowel movement. [facility] Medical History Chest pain Fall Coccyxdynia Myofascial low back pain Lump of skin Traumatic hematoma of buttock Colon cancer screening Bilateral knee pain Bilateral hand pain Viral upper respiratory illness Brain mass Epidermoid cyst of brain Dizziness Facial dermatitis Facial dermatitis Breast pain, right Knee pain, left Epidermal inclusion cyst Heart murmur Requires management of nerve block infusion Obesity (BMI 30-39.9) Hip pain, right Rotator cuff disorder Hypercholesterolemia Lumbar degenerative disc disease Anemia Vitamin D deficiency GERD (gastroesophageal reflux disease) Hypertension Bilateral carpal tunnel syndrome Primary osteoarthritis of hands, 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 Maternal Grandmother History of asthma Paternal Grandfather No problems noted. 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 Cognitive needs: No Hearing needs: No Vision needs: Yes Female Reproductive History Menstrual Age of Menarche: 15 Review of Systems Const Denies weight gain and Denies weight loss ENT Reports no additional complaints, Denies dysphagia and Denies odynophagia Card Reports no additional complaints Resp Reports no additional complaints GI Denies abdominal pain, Denies belching, Denies melena, Denies bloating, Denies change in bowel habits, Denies dysphagia, Denies excessive flatus, Denies dyspepsia, Denies heartburn, Denies diarrhea, Denies loose stools, Denies nausea, Denies odynophagia and Denies vomiting Musc Reports no additional complaints Neuro Reports no additional complaints Psych Reports no additional complaints Endo Reports no additional complaints Physical Exam Vital Signs: Last Vital Signs Pulse 72 06/29/25 08:35 BP 122/76 06/29/25 08:35 Pulse Ox 97 06/29/25 08:35 Oxygen Delivery Method Room Air 06/29/25 08:35 BMI result Body Mass Index 29.6 Const General: healthy appearing, no acute distress and well developed Nutritional Appearance: well nourished Orientation/consciousness: patient oriented x3 Resp Effort & Inspection: normal respiratory effort, able to speak in complete sentences, no tracheal deviation and symmetric chest movement Auscultation: clear to auscultation bilaterally Cardio Rate: regular rate GI Inspection: Yes normal to inspection and No distended Palpation (GI): Soft to palpation, not firm, nontender and No hepatosplenomegaly present Auscultation: normal bowel sounds General: Yes no CVA tenderness Back/Spine/Pelvis Back: no CVA tenderness Skin General skin exam: elasticity normal, turgor normal and dry skin Neuro General: patient oriented x3 Psych Appearance: grossly normal Mental Status: mental status grossly normal Assessment & Plan Assessment & Plan (1) GERD (gastroesophageal reflux disease): Code(s): K21.9 - Gastro-esophageal reflux disease without esophagitis Category: Medical Qualifiers: Esophagitis presence: without esophagitis Qualified Code(s): K21.9 - Gastro-esophageal reflux disease without esophagitis (2) Chronic constipation: Code(s): K59.09 - Other constipation Category: Medical (3) Postprandial abdominal bloating: Code(s): R14.0 - Abdominal distension (gaseous) Plan Patient will continue taking lansoprazole in the morning and famotidine at bedtime. Continue avoiding dietary triggers and late night snacking. Patient restarted tirzepatide few days ago and reports that she has been tolerating well. Patient was encouraged to eat smaller meals and more often. Patient will increase fluid intake and activity to promote better bowel motility. Patient will return in 4 months, sooner on as needed basis. Patient is agreeable to this plan and verbalizes understanding of instructions. She was given the opportunity to ask questions and all questions answered. Thank you for allowing me to participate in her care Medications: New hydrocortisone 2.5% (Proctosol HC) 1 appl ME BID-QID PRN 30 grams 2RF hemorrhoids K64.9 - Unspecified hemorrhoids Coding Level of Care Code Est Pt Level 3 (16868) Diagnoses Gastroesophageal reflux disease without esophagitis K21.9 Esophagitis presence: without esophagitis Chronic constipation K59.09 Postprandial abdominal bloating R14.0 Time Spent (min) 30 Comment 20 minutes spent with patient and additional 10 minutes spent reviewing her records
[2025-06-29 08:35] VITALS: BP 122/76; PULSE 72; O2SAT 97; BMI 29.6
== END 2025-06-29 08:57 | disposition home or self-care (01) ==
LOC: HO.HGI 08:17
PROVIDERS: PCP Internal Medicine; Visit Provider Nurse Practitioner Family
DX: K21.9 Gastro-esophageal reflux disease without esophagitis (principal); K59.09 Other constipation; R14.0 Abdominal distension (gaseous)
CPT/HCPCS: 99213